=== PATIENT | female | born 1980 | race Caucasian/White ===

== ENCOUNTER 2020-12-05 00:40 | Outpatient (CLI) | payer OTHER, SELFPAY ==
[2020-12-05 18:46] LABS: SARS-CoV-2 RNA PCR Negative
== END 2020-12-05 00:41 | disposition home or self-care (01) ==
LOC: ANHCOVIDDT 00:40
PROVIDERS: Family Provider Internal Medicine; PCP Physician Assistant; Visit Provider Student in an Organized Health Care Education/Training Program
DX: Z01.812 Encounter for preprocedural laboratory examination (principal); Z20.822 Contact with and (suspected) exposure to COVID-19
CPT/HCPCS: C9803; U0003; U0005

== ENCOUNTER 2020-12-08 14:59 | Outpatient (CLI) | payer OTHER, SELFPAY ==
--- NOTE | 2020-12-08 15:29 | ECG_ITS ---
Measurements Intervals [place] Rate: 109 P: 65 PA: 144 QRS: 9 QRSD: 77 T: 30 QT: 318 QTc: 430 Interpretive Statements SINUS TACHYCARDIA POSSIBLE LEFT ATRIAL ENLARGEMENT BORDERLINE ECG ABNORMAL ECG Electronically Signed On 12-08-2020 16:48:25 HYDRAULIC OIL TOOL OPERATOR by Lorenzo Vasques D.O.
[2020-12-08 15:42] LABS: Hematocrit 41.8 % (37.0-47.0); Hemoglobin 14.8 g/dL (12.0-15.0); Mean Corpuscular HGB Conc 35.4 g/dl (32-36); Mean Corpuscular Hemoglobin 29.4 pg (26-34); Mean Corpuscular Volume 82.9 fl (80-100); Mean Platelet Volume 10.8 fl (7.4-10.4); Platelet Count Result 250 k/mm3 (150-375); Red Blood Count 5.04 M/mm3 (4.2-5.4); Red Cell Distribution Width 12.1 % (11.5-14.5); White Blood Count 9.5 K/mm3 (4.5-10.0)
[2020-12-08 15:46] LABS: Anion Gap 7 mmol/L (8-16); Blood Urea Nitrogen 8 mg/dL (7-17); Calcium 9.1 mg/dL (8.4-10.2); Carbon Dioxide 26 mmol/L (22-30); Chloride 105 mmol/L (98-107); Estimated Glomerular Filt Rate > 60; Glucose 338 mg/dL (65-105); Sodium 138 mmol/L (137-145)
== END 2020-12-08 15:00 | disposition home or self-care (01) ==
LOC: ANHLAB 15:01
PROVIDERS: Student in an Organized Health Care Education/Training Program; PCP Physician Assistant; Visit Provider Anesthesiology
DX: D25.9 Leiomyoma of uterus, unspecified (principal); Z01.818 Encounter for other preprocedural examination; R94.31 Abnormal electrocardiogram [ECG] [EKG]
CPT/HCPCS: 36415; 80048; 85027; 86850; 86900; 86901; 93005

== ENCOUNTER 2020-12-09 00:39 | Day surgery (SDC) | payer OTHER, SELFPAY ==
[2020-12-04 14:15] VITALS: BMI 35.2
[2020-12-09] VITALS (15 sets, daily range): BP systolic 121–152; BP diastolic 65–101; PULSE 88–122; RESP 12–20; TEMP 36.6–37.5; O2SAT 96–100
--- NOTE | 2020-12-09 07:55 | PM.IMHP ---
H&P: HPI History of Present Illness Date/Time: 12/09/20 07:55 Chief Complaint: AUB pelvic pain uterine fibroids Narrative: Patsy Milan is a 40 year old female who presents for robotic TLH/BS for AUB in the setting of uterine fibroids. Pt initially presented to the office complaining of abnormal uterine bleeding. She was having prolonged heavy periods and intermenstrual spotting. She reported associated pelvic pain. Pt states that previous providers would just give her OCPs which would not control the bleeding. Pt also had a D&C as well as endometrial ablation without improvement of her symptoms. Review of Systems Cardiovascular: Cardiovascular: Denies chest pain, Denies leg edema, Denies palpitations, Denies dyspnea and Denies dyspnea on exertion Respiratory: Respiratory: Denies cough, Denies dyspnea and Denies dyspnea on exertion Gastrointestinal: Gastrointestinal: Denies abdominal pain, Denies constipation, Denies diarrhea, Denies nausea and Denies vomiting Genitourinary: Genitourinary: Denies hematuria, Denies urinary frequency, Denies dysuria, Denies pelvic pain, Denies urinary incontinence and Denies vaginal discharge Neurologic: Reports system reviewed and no additional complaints, except as documented Psychiatric: Psychiatric: Reports no additional psychiatric complaints Endocrine: Endocrine: Denies palpitations PMFSH Social History Social History Smoking end date: 11/06/99 Additional smoking assessment comments: smoked 4 years Living arrangements: with family Spiritual care concerns: No Meds Home Medications and Allergies Home Medications Medication Instructions Recorded Confirmed Type acyclovir 800 mg PO HS 12/04/20 12/04/20 History amlodipine 10 mg PO HS 12/04/20 12/04/20 History ascorbic acid (vitamin C) [Vitamin 500 mg PO HS 12/04/20 12/04/20 History C] meloxicam 7.7 mg PO HS 12/04/20 12/04/20 History multivitamin [TAB A DEEPTI] 1 tablet PO DAILY 12/04/20 12/04/20 History sitagliptin [Januvia] 100 mg PO HS 12/04/20 12/04/20 History Allergies Allergy/AdvReac Type Severity Reaction Status Date / Time iodine Allergy Intermediate Hives Verified 12/04/20 13:52 codeine Allergy Mild nausea & Unverified 12/04/20 13:51 vomiting Exam Const: General: no acute distress Eyes: EOM: EOMs intact bilaterally Neck: Neck: supple Thyroid: thyroid normal Chest: Breast/axilla inspection: normal inspection of the breasts Breast/axilla palpation: normal palpation of the breasts, normal palpation of the axillae and no axillary lymphadenopathy Resp: Effort & Inspection: normal respiratory effort Auscultation: clear to auscultation bilaterally Cardio: Rate: regular rate Rhythm: regular rhythm GI: Inspection: non-distended GI Palp: Yes Soft to palpation, No Tenderness to palpation present (GI) and No Guarding due to palpation present (GI) Auscultation: normal bowel sounds : General: No bladder normal to palpation External Female Exam: normal external appearance Speculum Exam - Vagina: normal vaginal discharge and No vaginal bleeding Speculum Exam - Cervix: nontender Bimanual exam- vagina & uterus: No bladder normal to palpation and No Cervical tenderness present OB/external & speculum: No vaginal bleeding Skin: General skin exam: normal color and no rashes or lesions noted Neuro: Cognition (Neuro): normal cognition Speech: normal speech Extrem: General: normal to inspection and no edema Psych: Mental Status: mental status grossly normal Affect: normal affect Assessment and Plan Assessment and plan (1) Abnormal uterine bleeding (AUB): Code(s): N93.9 - Abnormal uterine and vaginal bleeding, unspecified Status: Acute Assessment and Plan: pt reports prolonged menses with intermenstrual spotting pt is s/p hysteroscopy D&C as well as endometrial ablation pt has also failed medical management via OCPs. pt desires definitive management via hysterectomy
--- NOTE | 2020-12-09 08:00 | WPDHPUPDATE1 ---
History and Physical Update Update Date/Time: 12/09/20 08:00 History and Physical has been reviewed, including an updated exam of the patient. There are NO changes in the patient's condition. Risks, benefits, and alternatives have been discussed and questions answered. Patient agrees to proceed with procedure.
[2020-12-09] MEDS: ACETAMINOPHEN 500 MG TABLET 1000 MG PO (10:32)
--- NOTE | 2020-12-09 11:09 | P.PNAN_ITS ---
Anes - Initial Pre Proc Eval Procedure: Operation Date: 12/09/20 12:00 Proposed Procedures p Robotic Assisted Total Vaginal Hysterectomy With Bilateral Salpingectomy - Beto Martinez MD Date/Time: 12/09/20 11:09 Surgeon: Beto Martinez MD Pre Op Diagnosis: Abn uterine bleeding, enlarged fibroid Patient Data Age: 40 Gender: F Height: 5 ft 4 in Weight: 94.2 kg Last Vital Signs Temp 99.5 F 12/09/20 10:09 Pulse 105 H 12/09/20 10:09 Resp 16 12/09/20 10:09 BP 146/94 H 12/09/20 10:09 Pulse Ox 100 12/09/20 10:09 Allergies Allergy/AdvReac Type Severity Reaction Status Date / Time iodine Allergy Intermediate Hives Verified 12/09/20 10:37 codeine Allergy Mild nausea & Unverified 12/09/20 10:37 vomiting Home Medications Medication Instructions Recorded Confirmed Type acyclovir 800 mg PO HS 12/04/20 12/09/20 History amlodipine 10 mg PO HS 12/04/20 12/09/20 History ascorbic acid (vitamin C) [Vitamin 500 mg PO HS 12/04/20 12/09/20 History C] meloxicam 7.7 mg PO HS 12/04/20 12/09/20 History multivitamin [TAB A DEEPTI] 1 tablet PO DAILY 12/04/20 12/09/20 History sitagliptin [Januvia] 100 mg PO HS 12/04/20 12/09/20 History Patient hx anesthesia problems: none Family hx anesthesia problems: none [facility] Past Medical History Medical History (Updated 12/09/20 @ 11:08 by Frank Saucedo MD) Diabetes Hypertension Obesity Social History Social History Smoking end date: 11/06/99 Additional smoking assessment comments: smoked 4 years Living arrangements: with family Spiritual care concerns: No Anes - Eval Final PreProcedure Day of Procedure 12/09/20 11:09 Patient weight: obese Heart: regular rate and rhythm Lungs: clear to auscultation Airway: Mallampati scale class III Neurological: alert and oriented Last oral intake: >/= 8 hours ASA classification: III Emergent: no Anesthetic plan: proceed Anesthesia type and monitoring: general ETT and standard monitoring Informed Consent: The patient's anesthetic plan and its attendant risks and benefits were discussed with the patient/family/POA. Questions were solicited and answers provided to the satisfaction of the patient/family/POA.
[2020-12-09 11:12] LABS: Glucose Point of Care 303 (65-105)
[2020-12-09] MEDS: LACTATED RINGERS 1,000 ML 30 ML IV CONT ×3 (11:14→16:01)
[2020-12-09] MEDS: KETOROLAC 15 MG/ML VIAL (*BKC) IV PUSH (11:15)
[2020-12-09 11:23] LABS: Glucose Point of Care 300 (65-105)
[2020-12-09] MEDS: INSULIN HUMAN REGULAR (*BKC) 100 UNITS/ML 10 UNITS SUB-Q (11:53)
[2020-12-09] MEDS: ceFAZolin 2 GM/D5W 50 ML 2 GM/50 ML BAG IVPB (12:00)
[2020-12-09] MEDS: LIDO 1%/EPINEPHRINE 1:100,000 50 ML VIAL 30 ML INFILTRATE (13:07)
[2020-12-09 13:14] LABS: Glucose Point of Care 261 (65-105)
--- NOTE | 2020-12-09 14:54 | PM.PROC ---
Procedure Note - Detailed Date of procedure: 12/09/20 Pre-op diagnosis: Abn uterine bleeding, enlarged fibroid Post-op diagnosis: same Procedure performed: Robotic assisted total laparoscopic hysterectomy bilateral salpingectomy 60 minutes of lysis of adhesions Description of procedure: PROCEDURE IN DETAIL: After the patient was appropriately consented she was taken to the operating room where she was transferred to the table in a dorsal supine position. General anesthesia was then induced with endotracheal intubation. The patient was transferred to a dorsal lithotomy position using adjustable yellow-fin stirrups. Her position was adjusted for appropriate support of her lower back and lower extremities. The patient was prepped and draped. A transurethral shore catheter was place. The cervix was sequentially dilated and a 6 cm uterine manipulator placed in typical fashion about a 3 cm LEILA ring. Gloves were changed. After confirmation of a functioning orogastric tube, lidocaine was injected at Zepeda's point in the LUQ and a 8 mm incision was made. A 5mm Optiview trocar was then inserted into the abdominal cavity under direct visualization and done so without complication. The abdomen was then insufflated with approximately 2-3L of CO2 establishing a pneumoperitoneum and the patient was placed in Trendelenburg position. Just above the umbilicus in the midline, a 8 mm incision made after injection of lidocaine and a 8 mm bladeless trocar advanced into the abdominal cavity under direct visualization without incident. We subsequently placed two robotic ports in a similar fashion, one in the left mid-quadrant and one in the right, 10cm lateral to the midline port. The robot was then docked. Pelvic survey was performed which showed extensive pelvic and anterior abdominal wall adhesions. Bowel omentum was noted to be adherent to the anterior abdominal wall. These adhesions were taken down with monopolar scissors. The previous areas of adhesions were noted to be hemostatic. The uterus was noted to be densely adherent to the anterior abdominal wall from three prior sections. The Left fallopian tube was identified out to the fimbrae. The fallopian tube was then coagulated and ligated along the inferior mesosalpinx toward the uterus. The utero-ovarian ligament was identified and ligated. The Left round ligament was divided and the posterior aspect of the broad ligament was then skeletonized down to the level of the internal cervical os, mobilizing the ureter laterally. The anterior broad ligament was then skeletonized to the level of the adhesions. The adhesions were meticulously teased away from the anterior uterus using sharp dissection with monopolar scissors. A window was created posterior to the adhesions. This allowed visualization of a clear space behind the adhesion. This dissection of adhesions took approximately 60 minutes. The The bladder flap was then created sharply. The ipsilateral uterine artery was skeletonized, bipolar cauterized and transected. A similar procedure was performed on the contralateral side, developing the pelvic spaces, coagulating and dividing the IP away from the ureter, completing the bladder flap, and skeletonizing, ligating, and dividing the uterine artery on this side. We ensured the vaginal pneumo-occluder balloon was insufflated and made a circumferential colpotomy using monopolar current. An attempt was made to remove the uterus through the vagina without success. The uterus was noted to be globular with an enlarged fundal portion compared to the cervix. Attention was then turned below. The cervical stump was grasped with two tenaculums. A jon retractor was placed in the posterior vagina to protect the vaginal tissue. A scapel was then used to bi-valve the uterus. The uterus was successfully bivalved under direct visualization. The uterus, cervix, and bilateral tubes were then delivered transvaginally. I then re-approximated the colp
[2020-12-09 15:10] LABS: Glucose Point of Care 392 (65-105)
[2020-12-09] MEDS: INSULIN HUMAN REGULAR (*BKC) 100 UNITS/ML 15 UNITS SUB-Q (15:20)
[2020-12-09] MEDS: fentaNYL CITRATE INJ (*CRX) 100 MCG/2 ML VIAL 25 MCG IV PUSH ×4 (16:06→16:12)
[2020-12-09] MEDS: LACTATED RINGERS 1,000 ML 125 ML IV CONT (17:20)
[2020-12-09] MEDS: HYDROcodone/acetaminophen (*CRX) 10-325 MG TABLET 1 TAB PO (17:24)
[2020-12-09 17:52] LABS: Glucose Point of Care 275 (65-105)
[2020-12-09] MEDS: INSULIN ASPART (*BKC) 100 UNITS/ML SUB-Q ×2 (18:18→20:00)
[2020-12-09] MEDS: ONDANSETRON INJ 4 MG/2 ML VIAL IV PUSH (18:21)
[2020-12-09 19:55] LABS: Glucose Point of Care 297 (65-105)
--- NOTE | 2020-12-09 21:04 | PM.IMCN ---
Assessment and Plan Assessment and plan (1) S/P hysterectomy: Code(s): Z90.710 - Acquired absence of both cervix and uterus Status: Acute Assessment and Plan: Continue allied health teacher recommendations. Primary team to manage the patient's postop pain. 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 We will administer 12 units of long-acting Lantus insulin. monitor blood sugars every 6 hours. Hypoglycemia protocol. Consider further bolus insulin therapy as needed. (3) Nausea and vomiting: Qualifiers: Vomiting Intractability: non-intractable Vomiting type: unspecified Qualified Code(s): R11.2 - Nausea with vomiting, unspecified Code(s): R11.2 - Nausea with vomiting, unspecified Status: Acute Assessment and Plan: Currently resolved. The patient is no longer nauseated. I have recommended to the nursing staff that we make the patient NPO for the rest of the night. (4) Allergic reaction: Qualifiers: Encounter type: initial encounter Qualified Code(s): T78.40XA - Allergy, unspecified, initial encounter Code(s): T78.40XA - Allergy, unspecified, initial encounter Status: Acute Assessment and Plan: Patient may have had an allergic reaction to the anesthesia as her facial rash was present immediately after surgery today. The patient has refused Benadryl that was offered to her because she felt it would put her to sleep. I have offered the patient loratadine which she is in agreement to take for her acute allergic reaction. We will also administer Pepcid IV. (5) Hypertension: Qualifiers: Hypertension type: unspecified Qualified Code(s): I10 - Essential (primary) hypertension Code(s): I10 - Essential (primary) hypertension Status: Chronic Assessment and Plan: currently stable. Monitor blood pressure. Continue amlodipine. Additional Plan Date of service was December 09, 2020 at approximately 8:00 p.m.. HPI Data of Consult Consult date: 12/10/20 Requesting Physician: Beto Martinez MD Primary Care Provider: Jacki Andrews, PA Family Provider: Asif Berkowitz, Consult Narrative Narrative: Thank you for consulting us to see this 40-year-old morbidly obese diabetic female who is status post robotic TLH/BS secondary to abnormal uterine bleeding with uterine fibroids. Tonight after surgery the patient was somnolent and complained of an itchy swollen red face. she complains that her abdominal pain has been poorly controlled tonight. The patient normally only takes Januvia for her diabetes. She has been hyperglycemic today and has received a total of 33 units of short-acting insulin. She does report that she drank apple juice this evening and did not realize that it was not sugar free. She has also had mild nausea and vomiting this evening. Currently she denies any fevers, chills, headache, chest pain, shortness of breath, Dysuria, hematuria, or rectal bleeding. We have been asked to assist with the patient's elevated blood sugars. Nursing staff reports to me that the patient's last blood sugar was 297 mg/dl for which she received 4 units of insulin at 8:00 p.m. Review of Systems Review of Systems: All systems reviewed & are unremarkable except as noted in HPI and below PMFSH Past Medical History Medical History (Updated 12/09/20 @ 21:13 by Kirby Hill MD) Diabetes Hypertension Obesity Surgical History Surgical History (Updated 12/09/20 @ 21:10 by Kirby Hill MD) Previous sect
[2020-12-09] MEDS: INSULIN GLARGINE (*BKC) 100 UNITS/ML 12 UNITS SUB-Q (21:35)
[2020-12-09] MEDS: PROMETHAZINE HCL 25 MG/ML AMPUL (21:39)
[2020-12-09] MEDS: FAMOTIDINE 20 MG/2 ML VIAL IV PUSH (21:53)
[2020-12-09] MEDS: ACYCLOVIR 400 MG TABLET 800 MG BY MOUTH (22:14)
[2020-12-09] MEDS: amLODIPine BESYLATE 5 MG TABLET 10 MG PO (22:14)
[2020-12-10 02:00] LABS: Glucose Point of Care 177 (65-105)
[2020-12-10] MEDS: IBUPROFEN 600 MG TABLET PO (04:58)
[2020-12-10 05:00] VITALS: BP 151/81; PULSE 92; RESP 17; TEMP 36.7
[2020-12-10 05:55] LABS: Anion Gap 5 mmol/L (8-16); Blood Urea Nitrogen 8 mg/dL (7-17); Calcium 9.1 mg/dL (8.4-10.2); Carbon Dioxide 26 mmol/L (22-30); Chloride 106 mmol/L (98-107); Estimated CRCL calculation 139 ml/min; Estimated Glomerular Filt Rate > 60; Glucose 164 mg/dL (65-105); Sodium 137 mmol/L (137-145)
[2020-12-10 06:12] LABS: Basophils Absolute Auto 0.1 K/mm3 (0.0-0.1); Basophils Percent Auto 0.3 % (0.2-1.2); Eosinophils Percent Auto 0.1 % (0-4.4); Hematocrit 41.3 % (37.0-47.0); Hemoglobin 14.2 g/dL (12.0-15.0); Immature Granulocyte Absolute 0.05 K/mm3 (0.00-0.031); Immature Granulocyte Percent A 0.3 % (0-0.5); Lymphocytes Percent Auto 15.2 % (18.3-44.2); Mean Corpuscular HGB Conc 34.4 g/dl (32-36); Mean Corpuscular Hemoglobin 29.7 pg (26-34); Mean Corpuscular Volume 86.4 fl (80-100); Monocytes Percent Auto 6.5 % (2.6-8.5); Neutrophils Absolute Auto 11.7 K/mm3 (1.3-6.7); Neutrophils Percent Auto 77.6 % (45.5-73.1); Platelet Count Result 219 k/mm3 (150-375); Red Blood Count 4.78 M/mm3 (4.2-5.4); Red Cell Distribution Width 12.4 % (11.5-14.5); White Blood Count 15.1 K/mm3 (4.5-10.0)
[2020-12-10 06:30] VITALS: PULSE 95; RESP 18; O2SAT 98
[2020-12-10 06:48] LABS: Glucose Point of Care 171 (65-105)
--- NOTE | 2020-12-10 07:07 | PM.GYNPNOP ---
PATTERNMAKER HELPER - A/P Postoperative Procedures: Procedures Operation Date: 12/09/20 12:00 Actual Procedures Side Surgeon p Robotic Assisted Total Vaginal Hysterectomy With Bilateral Salpingectomy Beto Martinez MD Postoperative day: 1 Postoperative status: doing well and marginal pain control Postoperative plan: routine post-op care, ambulate and advance diet Time Spent With Patient Time: Total time spent is greater than 50% in coordination of care (as documented) at patient's floor/unit and/or counseling patient: Time with patient: less than 15 minutes PATTERNMAKER HELPER- PN:Subj Post-Op Subjective Date/time seen: 12/10/20 07:07 Interval history: Patient doing well this AM. She complained of poor pain control overnight but states it is tolerable this AM. She had nausea overnight that is improved with Zofran and Phenergan. She is tolerating clears. She is ambulating to the chair. Her catheter was removed and she is voiding spontaneously. She reports minimal amount of vaginal bleeding. She denies any fevers or chills. She reports flatus. Pt diabetes was poorly controlled yesterday. Hospitalist consultation was placed for glycemic control. Pt received NPH and log insulin. Her BS have improved this AM. She has not yet had breakfast. Subjective: patient has no complaints, pain is well controlled and patient is tolerating oral intake Review of Systems Constitutional: Constitutional: Denies fever(s) Cardiovascular: Cardiovascular: Denies chest pain, Denies lightheadedness, Denies palpitations and Denies dyspnea Respiratory: Respiratory: Denies cough and Denies dyspnea Gastrointestinal: Gastrointestinal: Reports abdominal pain, Denies nausea and Denies vomiting Genitourinary: Genitourinary: Denies dysuria Endocrine: Endocrine: Denies palpitations Exam Const: General: comfortable and no acute distress Orientation/consciousness: oriented to person, oriented to place and oriented to time Resp: Effort & Inspection: normal respiratory effort Auscultation: clear to auscultation bilaterally Cardio: Rate: regular rate Rhythm: regular rhythm GI: Inspection: non-distended GI Palp: Yes Soft to palpation, Yes Tenderness to palpation present (GI) (mild tenderness to deep palpation) and No Guarding due to palpation present (GI) Auscultation: normal bowel sounds Other: Incisions C/D/I. no erythema or induration Urinary Catheter: Urinary Catheter: patent and draining and urine clear Neuro: General: oriented to person, oriented to place and oriented to time Extrem: General: normal to inspection and no edema Psych: Mental Status: mental status grossly normal Affect: normal affect PATTERNMAKER HELPER - PN: Obj Data Vital Signs Vital Signs: Vital Signs - 24 hr 12/09/20 10:09 12/09/20 15:04 12/09/20 15:15 Temperature 37.5 C 37.2 C Pulse Rate 105 H 91 99 Respiratory Rate 16 17 15 Blood Pressure 146/94 H 127/65 147/81 H Pulse Oximetry 100 99 99 12/09/20 15:30 12/09/20 15:45 12/09/20 16:00 Temperature Pulse Rate 88 88 95 Respiratory Rate 18 14 20 Blood Pressure 137/80 134/77 132/81 Pulse Oximetry 98 100 100 12/09/20 16:15 12/09/20 16:30 12/09/20 16:55 Temperature 36.6 C Pulse Rate 96 98 107 H Respiratory Rate 12 12 18 Blood Pressure 145/90 H 134/84 140/87 Pulse Oximetry 98 98 97 12/09/20 17:15 12/09/20 17:30 12/09/20 18:00 Temperature 36.6 C Pulse Rate 97 103 H 101 H Respiratory Rate 18 Blood Pressure 129/78 137/82 140/81 Pulse Oximetry 97 96 12/09/20 18:30 12/09/20 19:30 12/09/20 20:30 Temperature 36.9 C 37.0 C Pulse Rate 97 98 122 H Respiratory Rate 14 19 Blood Pressure 121/101 H 139/84 152/89 H Pulse Oximetry 12/10/20 05:00 Temperature 36.7 C Pulse Rate 92 Respiratory Rate 17 Blood Pressure 151/81 H Pulse Oximetry Intake/Output Intake/Output: Intake & Output 12/07/20 12/08/20 12/09/20 12/10/20 23:59 23:59 23:59 23:59 Intake Total 920 Balance 920 Meds/Results Medications: Active Medi
[2020-12-10 07:11] LABS: Glucose Point of Care 321 (65-105)
--- NOTE | 2020-12-10 07:11 | PM.DS ---
DS: Admitting Diagnosis Admitting Diagnosis Admitting Diagnosis: abnormal uterine bleeding uterine fibroids pelvic pain DS: Summary Hospital Course Hospital Course: Patsy Milan was admitted after robotic assisted total laparoscopic hysterectomy and bilateral salpingectomy for abnormal uterine bleeding, uterine fibroids, and pelvic pain. The above procedure was performed with no complications. Pts post op course was complicated by poor glycemic control. Pt required regular and long acting insulin to control her BS. Hospitalist consultation was appreciated. After control of BS, pt was able to be d/c home. Status at Discharge Overall status at discharge: patient is progressing back to baseline Time Spent with Patient Time attestation: Total time spent providing and/or coordinating discharge services: Time spent: Less than 30 minutes Exam Const: General: comfortable and no acute distress Limitations: no limitations Resp: Effort & Inspection: normal respiratory effort Auscultation: clear to auscultation bilaterally Cardio: Rate: regular rate Rhythm: regular rhythm GI: Inspection: non-distended GI Palp: Yes Soft to palpation, Yes Tenderness to palpation present (GI) (milder tenderness to deep palpation) and No Guarding due to palpation present (GI) Auscultation: normal bowel sounds Other: incisions C/D/I covered with dermabond Urinary Catheter: Urinary Catheter: urine clear Skin: General skin exam: normal color Extrem: General: normal to inspection Psych: Mental Status: mental status grossly normal Affect: normal affect DS: Data Data Completed and Pending Pending studies at discharge: Pending at discharge 12/09/20 14:48 Surgical [PTH] Routine Labs on day of discharge: Labs from last 24 hours 12/10/20 12/10/20 12/10/20 06:41 05:07 05:07 WBC 15.1 H RBC 4.78 Hgb 14.2 Hct 41.3 MCV 86.4 MCH 29.7 MCHC 34.4 RDW 12.4 Plt Count 219 MPV 11.0 H Immature Gran % (Auto) 0.3 Neut % (Auto) 77.6 H Lymph % (Auto) 15.2 L [place] % (Auto) 6.5 Eos % (Auto) 0.1 Baso % (Auto) 0.3 Lymph # (Auto) 2.30 [place] # (Auto) 1.0 H Eos # (Auto) 0.0 Baso # (Auto) 0.1 Abs Immat Gran (auto) 0.05 H Absolute Neuts (auto) 11.7 H Absolute Nucleated RBC 0.0 Nucleated RBC % 0.0 Sodium 137 Potassium 4.0 Chloride 106 Carbon Dioxide 26 Anion Gap 5 L BUN 8 Creatinine 0.50 L Estim Creat Clear Calc 139 Estimated GFR > 60 Glucose 164 H POC Capillary Glucose 171 H Calcium 9.1 12/10/20 12/09/20 12/09/20 01:57 19:42 17:47 WBC RBC Hgb Hct MCV MCH MCHC RDW Plt Count MPV Immature Gran % (Auto) Neut % (Auto) Lymph % (Auto) [place] % (Auto) Eos % (Auto) Baso % (Auto) Lymph # (Auto) [place] # (Auto) Eos # (Auto) Baso # (Auto) Abs Immat Gran (auto) Absolute Neuts (auto) Absolute Nucleated RBC Nucleated RBC % Sodium Potassium Chloride Carbon Dioxide Anion Gap BUN Creatinine Estim Creat Clear Calc Estimated GFR Glucose POC Capillary Glucose 177 H 297 H 275 H Calcium 12/09/20 12/09/20 12/09/20 15:07 12:54 11:21 WBC RBC Hgb Hct MCV MCH MCHC RDW Plt Count MPV Immature Gran % (Auto) Neut % (Auto) Lymph % (Auto) [place] % (Auto) Eos % (Auto) Baso % (Auto) Lymph # (Auto) [place] # (Auto) Eos # (Auto) Baso # (Auto) Abs Immat Gran (auto) Absolute Neuts (auto) Absolute Nucleated RBC Nucleated RBC % Sodium Potassium Chloride Carbon Dioxide Anion Gap BUN Creatinine Estim Creat Clear Calc Estimated GFR Glucose POC Capillary Glucose 392 H 261 H 300 H Calcium 12/09/20 11:10 WBC RBC Hgb Hct MCV MCH MCHC RDW Plt Count MPV Immature Gran % (Auto) Neut % (Auto) Lymph % (A
[2020-12-10 08:25] VITALS: BP 137/77; PULSE 95; RESP 18; TEMP 36.8; O2SAT 98
--- NOTE | 2020-12-10 08:41 | WPDANESPN ---
Anes - Prog Note Post-Op Date/Time: 12/10/20 08:41 Cardiovascular status: normal Respiratory status: normal Airway patency: baseline Mental status: baseline Post-Op hydration status: normal Vital Signs: Last Vital Signs Temp 36.7 C 12/10/20 05:00 Pulse 92 12/10/20 05:00 Resp 17 12/10/20 05:00 BP 151/81 H 12/10/20 05:00 Pulse Ox 96 12/09/20 17:30 Pain Score (VAS): 11/15 I/O: Intake & Output 12/09/20 12/10/20 12/10/20 23:59 07:59 15:59 Intake Total 870 Balance 870 Laboratory Tests 12/10/20 05:07 12/10/20 05:07 12/09/20 12/09/20 12/09/20 11:10 11:21 12:54 WBC RBC Hgb Hct MCV MCH MCHC RDW Plt Count MPV Immature Gran % (Auto) Neut % (Auto) Lymph % (Auto) [place] % (Auto) Eos % (Auto) Baso % (Auto) Lymph # (Auto) [place] # (Auto) Eos # (Auto) Baso # (Auto) Abs Immat Gran (auto) Absolute Neuts (auto) Absolute Nucleated RBC Nucleated RBC % Sodium Potassium Chloride Carbon Dioxide Anion Gap BUN Creatinine Estim Creat Clear Calc Estimated GFR Glucose POC Capillary Glucose 303 H 300 H 261 H Calcium 12/09/20 12/09/20 12/09/20 15:07 16:31 17:47 WBC RBC Hgb Hct MCV MCH MCHC RDW Plt Count MPV Immature Gran % (Auto) Neut % (Auto) Lymph % (Auto) [place] % (Auto) Eos % (Auto) Baso % (Auto) Lymph # (Auto) [place] # (Auto) Eos # (Auto) Baso # (Auto) Abs Immat Gran (auto) Absolute Neuts (auto) Absolute Nucleated RBC Nucleated RBC % Sodium Potassium Chloride Carbon Dioxide Anion Gap BUN Creatinine Estim Creat Clear Calc Estimated GFR Glucose POC Capillary Glucose 392 H 321 H 275 H Calcium 12/09/20 12/10/20 12/10/20 19:42 01:57 05:07 WBC 15.1 H RBC 4.78 Hgb 14.2 Hct 41.3 MCV 86.4 MCH 29.7 MCHC 34.4 RDW 12.4 Plt Count 219 MPV 11.0 H Immature Gran % (Auto) 0.3 Neut % (Auto) 77.6 H Lymph % (Auto) 15.2 L [place]haw % (Auto) 6.5 Eos % (Auto) 0.1 Baso % (Auto) 0.3 Lymph # (Auto) 2.30 [place]haw # (Auto) 1.0 H Eos # (Auto) 0.0 Baso # (Auto) 0.1 Abs Immat Gran (auto) 0.05 H Absolute Neuts (auto) 11.7 H Absolute Nucleated RBC 0.0 Nucleated RBC % 0.0 Sodium Potassium Chloride Carbon Dioxide Anion Gap BUN Creatinine Estim Creat Clear Calc Estimated GFR Glucose POC Capillary Glucose 297 H 177 H Calcium 12/10/20 12/10/20 05:07 06:41 WBC RBC Hgb Hct MCV MCH MCHC RDW Plt Count MPV Immature Gran % (Auto) Neut % (Auto) Lymph % (Auto) [place] % (Auto) Eos % (Auto) Baso % (Auto) Lymph # (Auto) [place] # (Auto) Eos # (Auto) Baso # (Auto) Abs Immat Gran (auto) Absolute Neuts (auto) Absolute Nucleated RBC Nucleated RBC % Sodium 137 Potassium 4.0 Chloride 106 Carbon Dioxide 26 Anion Gap 5 L BUN 8 Creatinine 0.50 L Estim Creat Clear Calc 139 Estimated GFR > 60 Glucose 164 H POC Capillary Glucose 171 H Calcium 9.1 Post-procedural complaints: none Patient Feedback: Patient satisfied with anesthetic care.
[2020-12-10 09:14] LABS: Hemoglobin A1C 9.3 % (<5.7)
[2020-12-10] MEDS: ACETAMINOPHEN 325 MG TABLET 650 MG PO (09:18)
[2020-12-10] MEDS: MULTIVITAMINS THERAPEUTIC TAB (*BKC) 1 TABLET PO (09:19)
[2020-12-10] MEDS: DOCUSATE SODIUM 100 MG CAPSULE PO (09:19)
--- NOTE | 2020-12-10 10:06 | PM.IMPN ---
Progress Note: A&P Assessment and Plan (1) S/P hysterectomy: Code(s): Z90.710 - Acquired absence of both cervix and uterus Status: Acute Assessment and Plan: Continue continuous miner operator helper recommendations. Primary team to manage the patient's postop pain. (2) Diabetes mellitus with hyperglycemia: Qualifiers: Diabetes mellitus type: type 2 Diabetes mellitus intermodal truck driver insulin use: without intermodal truck driver use Qualified Code(s): E11.65 - Type 2 diabetes mellitus with hyperglycemia Code(s): E11.65 - Type 2 diabetes mellitus with hyperglycemia Status: Acute Assessment and Plan: Acute hyperglycemia is likely reactive from the patient's surgery that she had today. She was given 12 units of long-acting Lantus insulin last night. Glucose this morning was 171. HgbA1c was 9.3%. She reports checking her sugars every morning and usually ranges 150 to 170. She does not check it more than that. She was diagnosed with diabetes a few months ago with a hemoglobin A1c of 10%. Metformin gave her multiple side effects was discontinued. Januvia was started and she has been taking it faithfully. She states she will not accept any changes to her diabetes regimen at this time. I discussed starting Glimepiride but she refused. She reports having an appointment with her primary care provider next month. I informed her if her glucose is not well controlled it can caused delayed surgical healing, promote infections/post-op infections. She understands the risks and does not want any changes to her DM regimin at this time. I educated her about watching her diet, exercising as tolerated with postop surgery, checking her glucose 4 times a day for better monitoring of her sugars. Hypoglycemic warnings given. Patient states she has a glucometer, lancets, test strips at home and does not need any more at this time. Patient understands and agrees with the plan all questions answered. She is stable for discharge from medical perspective at this time (3) Nausea and vomiting: Qualifiers: Vomiting type: unspecified Vomiting Intractability: non-intractable Qualified Code(s): R11.2 - Nausea with vomiting, unspecified Code(s): R11.2 - Nausea with vomiting, unspecified Status: Acute Assessment and Plan: Currently resolved. The patient is no longer nauseated. She denies any nausea and ate breakfast without any issues. (4) Allergic reaction: Qualifiers: Encounter type: initial encounter Qualified Code(s): T78.40XA - Allergy, unspecified, initial encounter Code(s): T78.40XA - Allergy, unspecified, initial encounter Status: Acute Assessment and Plan: Patient may have had an allergic reaction to the anesthesia as her facial rash was present immediately after surgery today. The patient has refused Benadryl that was offered to her because she felt it would put her to sleep. I have offered the patient loratadine which she is in agreement to take for her acute allergic reaction. We will also administer Pepcid IV. She denies any more itching or rash to her face. She can take [id number] Claritin as needed. (5) Hypertension: Qualifiers: Hypertension type: unspecified Qualified Code(s): I10 - Essential (primary) hypertension Code(s): I10 - Essential (primary) hypertension Status: Chronic Assessment and Plan: Currently stable, 137/77. Continue amlodipine. Time Spent With Patient Time with patient: 25 - 35 minutes Subjective Date/time seen: 12/10/20 10:06 Interval history: Date of service 12/10/2020: Patient states pain is better controlled this morning since her surgery yesterday. She still having pain, denies any nausea or vomiting with eating breakfast
== END 2020-12-10 11:25 | disposition home or self-care (01) ==
LOC: ANHSURGERY 09:50 → ANHOB2 17:01
PROVIDERS: Physician Assistant; Family Provider Internal Medicine; PCP Physician Assistant; Visit Provider Student in an Organized Health Care Education/Training Program
PROC: (CPT 58571; principal; 2020-12-09 12:00)
DX: N93.9 Abnormal uterine and vaginal bleeding, unspecified (principal); N80.0 Endometriosis of uterus; N70.11 Chronic salpingitis; R10.2 Pelvic and perineal pain; E11.65 Type 2 diabetes mellitus with hyperglycemia; R11.2 Nausea with vomiting, unspecified; T78.40XA Allergy, unspecified, initial encounter; R21 Rash and other nonspecific skin eruption; I10 Essential (primary) hypertension; E66.01 Morbid (severe) obesity due to excess calories; Z68.35 Body mass index [BMI] 35.0-35.9, adult; Z87.891 Personal history of nicotine dependence; Z79.84 Long term (current) use of oral hypoglycemic drugs
CPT/HCPCS: 58571; S2900; 36415; 80048; 82948; 83036; 85025; 88307; 99199; A9270; J0131; J0690; J1100; J1170; J1815; J1885; J2250; J2370; J2405; J2550; J2704; J2710; J3010; J7030; J7120

== ENCOUNTER 2024-11-25 08:40 | Outpatient (CLI) | payer OTHER, SELFPAY ==
[2024-11-25 09:14] LABS: Basophils Absolute Auto 0.1 K/mm3 (0.0-0.1); Basophils Percent Auto 0.5 % (0.2-1.2); Eosinophils Absolute Auto 0.1 K/mm3 (0-0.3); Eosinophils Percent Auto 0.8 % (0-4.4); Hemoglobin 15.7 g/dL (12.0-15.0); Immature Granulocyte Absolute 0.05 K/mm3 (0.00-0.031); Immature Granulocyte Percent A 0.4 % (0-0.5); Lymphocytes Absolute Auto 1.74 K/mm3 (0.9-3.2); Lymphocytes Percent Auto 15.3 % (18.3-44.2); Mean Corpuscular HGB Conc 34.9 g/dl (32-36); Mean Corpuscular Hemoglobin 30.3 pg (26-34); Mean Corpuscular Volume 86.7 fl (80-100); Mean Platelet Volume 10.5 fl (7.4-10.4); Monocytes Absolute Auto 0.5 K/mm3 (0.1-0.6); Platelet Count Result 234 k/mm3 (150-375); Red Blood Count 5.19 M/mm3 (4.2-5.4); Red Cell Distribution Width 12.5 % (11.5-14.5); White Blood Count 11.4 K/mm3 (4.5-10.0)
[2024-11-25 09:38] LABS: Alanine Aminotransferase 31 U/L (6-35); Albumin Level 4.3 g/dL (3.5-5.1); Alkaline Phosphatase 80 U/L (38-126); Anion Gap 9 mmol/L (4-12); Aspartate Amino Transferase 27 U/L (14-36); Bilirubin,Total 0.8 mg/dL (0.2-1.3); Blood Urea Nitrogen 12 mg/dL (7-17); Calcium 9.7 mg/dL (8.4-10.2); Carbon Dioxide 25 mmol/L (22-30); Chloride 101 mmol/L (98-107); Cholesterol 179 mg/dL (0-200); Estimated Glomerular Filt Rate > 60; Glucose 390 mg/dL (65-110); HDL Direct 37 mg/dL; Potassium 4.2 mmol/L (3.4-5.0); Sodium 135 mmol/L (137-145); Triglycerides 202 mg/dL (<150)
[2024-11-25 09:49] LABS: LDL Cholesterol Direct 115 mg/dL
[2024-11-25 10:17] LABS: Vitamin D 25 Hydroxy 14.1 ng/mL
[2024-11-25 10:59] LABS: Creatinine Urine 63.3 mg/dL
[2024-11-25 11:00] LABS: MALB Creatinine Ratio 20.2 mg/g (0-30); Microalbumin Urine Random 12.8 mg/L (0-16.7)
--- OUTSIDE RECORDS SUMMARY | 2024-11-28 12:00 | XMS_ITS | Clinical Summary ---
Author Organization [facility] Address [address] [place] [address] Care Team Providers Care Cream Separator Operator Name Role Phone Hermelindo Manning MD Unavailable [phone] Naty Guerrier PA-C Primary Care Provider [phone] Source Comments [facility],non-owned Affiliates and Associated Physician Practices is amultiple site organization consisting of ambulatory clinics and hospital sitesin [place], [place], [place] and [place]. This disclosure is being madepursuant to the Care Everywhere program and may not contain all information available regarding this patient. Last updated 18.[facility] Allergies Active Allergy Reactions Criticality Noted Date Comments Codeine Itching Low 07/01/2014 Contrast-Iodinated Agents For Ct/Other Rash Medium 08/03/2019 Morphine Rash Medium 08/03/2019 Medications * Be aware that medications may not be up to date on this document. Alwaysverify current medications with the patient. Medication Sig Dispensed Refills Start Date End Date Status lisinopril (Prinivil; Zestril) 20 MG tablet Take 1 (one) tablet by mouth once daily 90 tablet 3 12/27/2023 Active amLODIPine (Norvasc) 10 MG tabletIndications:Melissa jeter hypertension Take 1 (one) tablet by mouth once daily 90 tablet 3 01/30/2024 Active metoprolol succinate XL 24hr (Toprol XL) 25 MG tabletIndications:Melissa jeter hypertension Take 1 (one) tablet by mouth once daily 90 tablet 3 01/30/2024 Active semaglutide (Rybelsus) 7 MG tabletIndications:Typ e 2 diabetes mellitus without complication, without long-term current use of insulin (HCC) Take 1 (one) tablet by mouth once daily Take with a sip of water (< 4 oz) at least 30 minutes before any food, drink, or other meds. 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 The episodic nature of her recent episodes of hypertension associated with chest discomfort and heart racing is suggestive of pheochromocytoma. While she could very well have just primary hypertension, she is on the younger side to develop primary hypertension. I suspect she may have secondary hypertension. Her recently obtained -Check TTE to rule out endorgan damage -Check urine and plasma metanephrines to rule out pheochromocytoma -Renal Doppler, retroperitoneal ultrasound, BMP to rule out renovascular causes and aldosteronism -She has had hysterectomy hence unclear whether menopausal or not; but not taking oral contraceptives -Does not appear cushingoid Encounter to establish care 12/22/2022 Assessment & Plan (12/22/2022 11:03 PM MALT LIQUORS SALES SUPERVISOR): Check TSH, lipid profile Encounters Date Type Department Care Team Description 10/01/2024 Refill [facility] [address] [place] [address], [facility] [place] [address] Naty Guerrier PA-C Refill Request 09/16/2024 Refill [facility] [address] [place] [address], [place] [address] Naty Guerrier PA-C Refill Request 09/03/[address] [address] Merissa Kaufman, RT(R) Abnormal Imaging (Talked with patient today about rescheduling her Mammogram and Ultrasound appointment that she missed on 08/29/24. Patient states she will call us back with her availability when she has time. ) from Last 3 Months Immunizations Name Administration Dates Next Due TDAP, HISTORIC VACCINE 10/23/2017 Family History Medical History Relation Name Comments None Known Daughter Aneurysm, Brain Father Anxiety Disorder Father Bipolar Disorder Father Hypertension Father Diabetes - Type 2 Maternal Grandfather Renal Disease Maternal Grandfather Atrial Fibrillation Maternal Grandmother CVA Maternal Grandmother Cancer - Breast Maternal Grandmother recu rrent - 2007, 2014, 2022 Diabetes - Type 2 Mother Parkinson's Disease Paternal Grandfather Cancer - Lung Paternal Grandmother smoker None Known Sister None Known Son 1 None Known Son 2 Relation Name Status Comments Daughter Alive Father Alive Maternal Grandfather Maternal Grandmother Mother Alive Paternal Grandfather Alive Paternal Grandmother Sister Alive Son 1 Alive Son 2 Alive Social History Tobacco Use Types Packs/Day Years Used Date Smoking Tobacco: Never Smokeless Tobacco: Former Quit: 2000 Tobacco Cessation:Counseling Given: Not Answered Alcohol Use Standard Drinks/Week Comments Never 0 (1 standard drink = 0.6 oz pur e alcohol) AUDIT-C Answer Date Recorded Q1: How often do you have a drink containing alc ohol? Monthly or less 10/04/2022 Q2: How many drinks containi ng alcohol do you have on a typical day when you are drinking? 1 or 2 10/04/2022 Q3: How often do you have si x or more drinks on one occasion? Less than monthly 10/04/2022 PHQ-2 Answer Date Recorded Patient Health Questionnaire-2 Score 1 06/13/2024 Sex and Gender Information Value Date Recorded Sex Assigned at Not on file Gender Identity Not on file Sexual Orientation Not on file Last Filed Vital Signs Vital Sign Reading Time Taken Comments Blood Pressure 122/81 06/13/2024 3:11 PM CDT Pulse 96 06/13/2024 3:11 PM CDT Temperature 36.3 ??C (97.4 ??F) 06/13/2024 1:30 PM CD T Respiratory Rate 16 10/04/2022 7:58 PM MALT [employer]QU[employer] SALES SUPERVISOR Oxygen Saturation 100% 06/13/2024 1:30 PM CDT Inhaled Oxygen Concentration - - Weight 92.1 kg (203 lb 0.7 oz) 07/12/2024 10:29 AM CDT Height 162.6 cm (5' 4.02 ) 07/12/2024 10:29 AM C DT Body Mass Index 34.83 07/12/2024 10:29 AM CDT Plan of Treatment Health Maintenance Due Date Last Done Comments PAP SMEAR 1980 HEPATITIS C SCREENING 07/07/1998 HEPATITIS B VACCINE (1 of 3 - 19+ 3-dose series) 1999 PNEUMOCOCCAL VACCINE (1 of 2 - PCV) 1999 DIABETES-STATIN 2020 DIABETES-SERUM CREATININE 10/04/2023 10/04/2022 DIABETES RETINOPATHY SCREENING 12/27/2023 DIABETES-FOOT EXAM WITH MONOFILAMENT 12/27/2023 DIABETES-HGB A1C 12/27/2023 COVID-19 VACCINE ( - 2023-2 5 season) 2024 INFLUENZA VACCINE (#1) 2024 DEPRESSION SCREENING 11/06/2024 12/27/2023 DIABETES - URINE PROTEIN SCREENING 11/06/2024 MAMMOGRAM 07/12/2026 07/12/2024 DTAP/TDAP/TD VACCINES (2 - T d or Tdap) 10/23/2027 10/23/2017 ZOSTER VACCINE (1 of 2) 2030 HIB VACCINE Aged Out No longer eligi ble based on patient's age to complete this topic HIV SCREENING Discontinued HPV VACCINE Aged Out No longer eligi ble based on patient's age to complete this topic MENINGOCOCCAL (Group B) VACCINE Aged Out No longer eligible based on patient's age to complete this topic MENINGOCOCCAL VACCINE Aged Out No sayra mone eligible based on patient's age to complete this topic Procedures Procedure Name Priority Date/Time Associated Diagnosis Comments MAMMO BILAT SCREENING W MYRTLE Routine 07/12/2024 10:54 AM CDT Breast cancer screening by mammogram COMPREHENSIVE METABOLIC PANEL STAT 10/04/2022 2:43 PM MALT [employer]QU[employer] SALES SUPERVISOR from Last 3 Months or Most Recently Relevant to Health Maintenance Results * MAMMO BILAT SCREENING W MYRTLE (07/12/2024 10:54 AM CDT) Anatomical Region Laterality Modality Breast Bilateral Mammography 07/12/2024 11:0 7 AM CDT Impressions 07/12/2024 12:54 PM CDT : 1. Possible asymmetry in the medial mid depth left breast on the cranial caudal view. 2. Asymmetry in the superior posterior left breast on the MLO view. 3. Negative right mammogram. RECOMMENDATION: ??Diagnostic left mammogram. ??If indicated at that time, left breast ultrasound will be performed. ??Patient will be contacted and scheduled to return for the additional imaging. OVERALL ASSESSMENT: BI-RADS CATEGORY 0: INCOMPLETE: NEED ADDITIONAL IMAGING EVALUATION. Report dictated by John Hayes M.D. (residential support worker) 07/12/2024 11:07 AM I, Brianna Stanley MD have personally reviewed and interpreted this examination/study. > Interpreting Provider: Brianna Stanley MD on 07/12/2024 12:54 PM Narrative 07/12/2024 12:54 PM CDT EXAMINATIONS: ??BILATERAL DIGITAL SCREENING MAMMOGRAM AND BILATERAL BREAST TOMOSYNTHESIS LOCATION: [facility] EXAM DATE: ??07/12/2024 HISTORY: ??Baseline screening mammogram. Family history of breast cancer in her maternal grandmother at age 70. RISK ASSESSMENT CALCULATION: Patient completed a breast cancer risk assessment during her appointment 07/12/2024. ??Based upon the information she provided and her mammographic breast density, her lifetime risk of developing breast cancer is 13% (Average Risk <15%; Intermediate / Moderate Risk 15-19; High Risk > 20%). Risk assessment based upon the BRCAPRO model. COMPARISON: ??None. This is a baseline exam. TECHNIQUE: Tomosynthesis (3D) and reconstructed synthetic 2-D images acquired and reviewed in the bilateral craniocaudal and mediolateral oblique projections. ??A total of 4 images obtained. ??Transpara AI was utilized in the interpretation. ?? BREAST PARENCHYMAL COMPOSITION: Category B: There are scattered areas of fibroglandular density. FINDINGS: Right breast: ??No suspicious findings or evidence of malignancy. Left breast: ??Possible asymmetry in the medial mid depth breast, 4 cm from the nipple on the craniocaudal view. Asymmetry in the superior posterior breast on the MLO view, 15 cm from the nipple, which may represent a lymph node. Naty Guerrier PA-C MAMMO ORDERABLES * (ABNORMAL) COMPREHENSIVE METABOLIC PANEL (10/04/2022 2:43 PM [employer]QU[employer] SALES SUPERVISOR) BUN 12 7 - 26 mg/dL 10/04/2022 3:25 PM [facility] Creatinine 0.54(L) 0.56 - 0.96 mg/dL 10/04/2022 3:25 PM [facility] Sodium 137 136 - 145 mmol/L 10/04/2022 3:25 PM [facility] Potassium 4.1 3.5 - 4.5 mmol/L 10/04/2022 3:25 PM [facility] Chloride 104 98 - 107 mmol/L 10/04/2022 3:25 PM [facility] CO2 19(L) 22 - 29 mmol/L 10/04/2022 3:25 PM [facility] Glucose 277(H) 70 - 115 mg/dL 10/04/2022 3:25 PM [facility] Calcium 10.1 8.4 - 10.2 mg/dL 10/04/2022 3:25 PM [facility] Protein Total 7.5 6.0 - 8.3 g/dL 10/04/2022 3:25 PM [facility] Albumin 4.3 3.4 - 5.0 g/dL 10/04/2022 3:25 PM [facility] Bilirubin Total 1.0 0.2 - 1.2 mg/dL 10/04/2022 3:25 PM [facility] Alkaline Phosphatase 72 40 - 150 U/L 10/04/2022 3:25 PM [facility] ALT 38 5 - 55 U/L 10/04/2022 3:25 PM [facility] AST 24 5 - 34 U/L 10/04/2022 3:25 PM [facility] Anion Gap 18 8 - 18 10/04/2022 3:25 PM [facility] BUN/Creatinine Ratio 22 7 - 23 10/04/2022 3:25 PM [facility] Osmolality Calculated 294 270 - 300 mOsm/kg 10/04/2022 3:25 PM [facility] Albumin/Globulin Ratio 1.3 1.1 - 2.3 10/04/2022 3:25 PM MALT LIQUORS SALES SUPERVISOR [facility] eGFR by CKD-EPI >90 >=90 mL/min/1.7 3 m2 10/04/2022 3:25 PM MALT LIQUORS SALES SUPERVISOR [facility] Blood BLOOD SPECIMEN / Unknown Venipuncture / Unknown 10/04/2022 2:43 PM [employer] SALES SUPERVISOR 10/04/2022 2:52 PM [employer] SALES SUPERVISOR Charlene Waggoner SUBEDITOR-[facility] - CHEMISTR Y ORDERABLES [facility] [address] [place] [address], [facility] [phone] from Last 3 Months or Most Recently Relevant to Health Maintenance Care Teams Cream Separator Operator Relationship Specialty Start Date End Date Naty Guerrier PA-C [address] [facility] [address] [place] [address] PCP - General Physician Dcs Engineer Medical 12/27/23 Hermelindo Manning MD [address] [facility] [address] [place] [address] Internal Medicine 08/03/19
--- OUTSIDE RECORDS SUMMARY | 2024-11-28 12:00 | XMS_ITS | Patient Health Summary ---
Author Organization [facility] Address [address] 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 This disclosure is being madepursuant to the Care Everywhere program and may not contain all information available regarding this patient. Last updated 18.[facility] Allergies * Codeine(Itching) -Low Criticality * Contrast-Iodinated Agents For Ct/Other(Rash) -Medium Criticality * Morphine(Rash) -Medium Criticality Medications * Be aware that medications may not be up to date on this document. Alwaysverify current medications with the patient. * lisinopril (Prinivil; Zestril) 20 MG tablet(Started 12/27/2023) Take 1 (one) tablet by mouth once daily 3 refills by 12/26/2024 * amLODIPine (Norvasc) 10 MG tablet(Started 01/30/2024) Take 1 (one) tablet by mouth once daily 3 refills by 01/29/2025 * metoprolol succinate XL 24hr (Toprol XL) 25 MG tablet(Started 01/30/2024) Take 1 (one) tablet by mouth once daily 3 refills by 01/29/2025 * semaglutide (Rybelsus) 7 MG tablet(Started 09/17/2024) Take 1 (one) tablet by mouth once daily Take with a sip of water (< 4 oz) at least 30 minutes before any food, drink, or other meds. * hydroCHLOROthiazide (Microzide) 12.5 MG capsule(Started 10/01/2024) TAKE 1 CAPSULE BY MOUTH EVERY DAY Active Problems Problem Noted Date Diagnosed Date Type 2 diabetes mellitus wit hout complication, without long-term current use of insulin 12/27/2023 Primary hypertension 12/22/2022 Encounter to establish care 12/22/2022 Immunizations * TDAP, HISTORIC VACCINE(Given 10/23/2017) Social History Tobacco Use Types Packs/Day Years [...] T Respiratory Rate 16 10/04/2022 7:58 PM [employer] Oxygen Saturation 100% 06/13/2024 1:30 PM CDT Inhaled Oxygen Concentration - - Weight 92.1 kg (203 lb 0.7 oz) 07/12/2024 10:29 AM CDT Height 162.6 cm (5' 4.02 ) 07/12/2024 10:29 AM C DT Body Mass Index 34.83 07/12/2024 10:29 AM CDT Procedures * MAMMO BILAT SCREENING W MYRTLE(Performed 07/12/2024) Performed for Breast cancer screening by mammogram * PROC EKG IN CLINIC(Performed 12/22/2022) Performed for Encounter to establish care * CARDIAC EKG ORDER(Performed 10/05/2022) * URINALYSIS W/MICROSCOPIC NO CULTURE(Performed 10/04/2022) * SARS-COV-2 (COVID-19)+INFLU A+B PCR RAPID(Performed 10/04/2022) * HCG BETA BLOOD QUANTITATIVE(Performed 10/04/2022) * TSH REFLEX FREE T4(Performed 10/04/2022) * D-DIMER(Performed 10/04/2022) * TROPONIN I(Performed 10/04/2022) * COMPREHENSIVE METABOLIC PANEL(Performed 10/04/2022) * CBC W AUTO DIFFERENTIAL(Performed 10/04/2022) * XR CHEST 2VW(Performed 10/04/2022) Performed for Chest pain, unspecified type * EKG 12-LEAD(Performed 10/04/2022) Performed for Chest pain, unspecified type * VAS LEFT VENOUS DUPLEX LE(Performed 08/03/2019) Performed for Left leg swelling * XR TIBIA FIBULA LEFT 2VW(Performed 08/03/2019) Performed for Left leg swelling * XR SHOULDER RIGHT 2VW OR MORE(Performed 08/03/2019) Performed for Bilateral shoulder pain, unspecified chronicity * XR SHOULDER LEFT 2VW OR MORE(Performed 08/03/2019) Performed for Bilateral shoulder pain, unspecified chronicity * XR ANKLE LEFT 3VW OR MORE(Performed 08/03/2019) Performed for Left leg swelling * URINALYSIS AUTO - POINT OF CARE (AMB) STL(Performed 07/14/2016) Performed for Glucosuria * XR SHOULDER LEFT 2VW OR MORE(Performed 07/01/2014) Results * MAMMO BILAT SCREENING W MYRTLE [...] EVALUATION. Report dictated by John Hayes M.D. (secretary to the vice president) 07/12/2024 11:07 AM I, Brianna Stanley MD have personally reviewed and interpreted this examination/study. > Interpreting Provider: Brianna Stanley MD on 07/12/2024 12:54 PM Narrative 07/12/2024 12:54 PM CDT EXAMINATIONS: ??BILATERAL DIGITAL SCREENING MAMMOGRAM AND BILATERAL BREAST TOMOSYNTHESIS LOCATION: [facility] EXAM DATE: ??07/12/2024 HISTORY: ??Baseline screening mammogram. [...] node. Naty Guerrier PA-C MAMMO ORDERABLES * EKG - Clinic Performed (12/22/2022 3:11 PM [employer]) Nolberto Short MD ECG ORDERABLES * CARDIAC EKG ORDER (10/05/2022 10:52 AM [employer]) Narrative 10/05/2022 10:52 AM [employer] Ordered by an unspecified provider. Scanned Document CARDIAC SERVICES ORD ERABLES * (ABNORMAL) URINALYSIS W/MICROSCOPIC NO CULTURE (10/04/2022 2:55 PM [employer]) Color UA Yellow Straw, Yellow 10/04/2022 3:29 PM [facility] Clarity UA Clear Clear 10/04/2022 3:29 PM [facility] Specific Jack UA 1.020 1.005 - 1.030 10/04/2022 3:29 PM [facility] pH UA 5.5 5.0 - 8.0 pH 10/04/2022 3:29 PM [facility] Protein UA Negative Negative 10/04/2022 3:29 PM [facility] Glucose UA 3+(A) Negative 10/04/2022 3:29 PM [facility] Ketone UA 4+(A) Negative 10/04/2022 3:29 PM [facility] Bilirubin UA Negative Negative 10/04/2022 3:29 PM [facility] Comment:Urine Bilirubin resu lt confirmed by manual Ictotest. Blood UA Negative Negative 10/04/2022 3:29 PM [facility] Nitrite UA Negative Negative 10/04/2022 3:29 PM [facility] Leukocyte Esterase Negative Negative 10/04/2022 3:29 PM [facility] Urobilinogen UA Negative Negative mg/dL 10/04/2022 3:29 PM [facility] RBC UA 6-10(A) None Seen, 0-2, 3-5 /HPF 10/04/2022 3:29 PM [facility] WBC UA 0-5 None Seen, 0-5 /HPF 10/04/2022 3:29 PM [facility] Squamous Epithelial Cells UA 6-10(A) None Seen, 0-2, 3-5 /HPF 10/04/2022 3:29 PM [facility] Mucus UA 1+ /LPF 10/04/2022 3:29 PM [facility] Yeast Budding UA Few(A) None /HPF 10/04/20 22 3:29 PM [employer] [facility] Urine URINE SPECIMEN OBTAINED BY CLEAN CATCH PROCEDURE / Unknown Collection / Unknown 10/04/2022 2:55 PM [employer] 10/04/2022 3:13 PM [employer] Narrative [facility] - 10/04/2022 3:29 PM [employer] Charlene Rubinrichard JAVA WEB DEVELOPER[facility] - URINALYS IS ORDERABLES [facility] [address] [place] [address], [facility] [phone] * SARS-COV-2 (COVID-19)+INFLU A+B PCR RAPID (10/04/2022 2:44 PM [employer]) COVID-19 PCR Not detected Not detected 10/04/20 22 3:33 PM [employer] [facility] Influenza A Rapid ARRON Not Detected Not Detected 10/04/2022 3:33 PM [employer] [facility] Influenza B ARRON Rapid Not Detected Not Detected 10/04/2022 3:33 PM [employer] [facility] Microbiology SPECIMEN FROM NASOPHARYNGEAL STRUCTURE / Unknown Collection / Unknown 10/04/2022 2:44 PM [employer] 10/04/2022 2:47 PM [employer] Narrative [facility] - 10/04/2022 3:33 PM [employer] Influenza assay performed by Nucleic Acid Amplification. Results do not exclude the possibility of a mixed viral infection. NOTE: ??Detecting and identifying specific viral nucleic acids from individuals exhibiting signs and symptoms of respiratory infection aids in the diagnosis of respiratory infection, if used in conjunction with other clinical and laboratory findings. The results of this test should not be used as the sole basis for diagnosis, treatment, or patient management decisions. This nucleic acid amplification assay performance was validated by [facility]. This test has been authorized by the Food and Drug administration (FDA)under an Emergency??Use Authorization (EUA). This test has been validated in accordance with the FDA's guidance document Policy for Diagnostic Testing in Laboratories Certified to perform High Complexity Testing under CLIA prior to Emergency Use Authorization for Coronavirus Disease-2019 during the Public Health Emergency issued on January 04, 2020. FDA independent review of this validation is pending. This test is only authorized for the duration of time the declaration that circumstances exist justifying the authorization of emergency use of in vitro diagnostic tests for detection of SARS-CoV-2 virus and/or diagnosis of COVID-19 infection under section 564(b)(1) of the Act, 21 U.S.C 360bbb-3 (b)(1), unless the authorization is terminated or revoked sooner. Fact Sheets for this EUA assay are available upon request. Charlene Waggoner APRN-[facility] - MICROBIO LOGY ORDERABLES Performing Organization Address City/[facility]/ZIP Co de Phone Number [address] [address], [facility] [phone] * TSH REFLEX FREE T4 (10/04/2022 2:43 PM [employer]) TSH 1.327 0.350 - 4.940 uIU/mL 10/04/2022 3:43 PM [employer] [facility] Blood BLOOD SPECIMEN / Unknown Venipuncture / Unknown 10/04/2022 2:43 PM [employer] 10/04/2022 2:52 PM [employer] Charlene Waggoner APRNPrintio.ruWINCHER LAB - CHEMISTR Y ORDERABLES Performing Organization Address [facility]/ZIP Co de Phone Number [address] [address], [facility] [phone] * TROPONIN I (10/04/2022 2:43 PM [employer]) Troponin I <0.010 <0.032 ng/mL 10/04/2022 3:28 PM [employer] [facility] Blood BLOOD SPECIMEN / Unknown Venipuncture / Unknown 10/04/2022 2:43 PM [employer] 10/04/2022 2:51 PM [employer] Charlene Waggoner [facility]EN[facility] - CHEMISTR Y ORDERABLES Performing Organization Address City/[facility]/ZIP Co de Phone Number [address] [address], [facility] [phone] * (ABNORMAL) D-DIMER (10/04/2022 2:43 PM [employer]) [facility] D-Dimer Quantitative 0.53(H) <=0.50 mcg/mL FEU 10/04/2022 4:55 PM [employer] [facility] Comment: In the absence of clinical symptoms, a value less than or equal to 0.5 mcg/mL FEU significantly decreases the probability of PE/DVT (negative predictive value >95%). 1 mcg/mL FEU = 1 Fibrinogen Equivalent Unit (approximates 0.5 mcg/ml of D- Dimer). ?ISTH DIAGNOSTIC SCORING SYSTEM FOR DIC ?Score ?0 ? 1 ? 2 ?3 ?? Platelet Count(x10^3/uL) ?> 100 ?? < 100 ?? < 50 ?N/A PT Prolongation above ? upper limit of normal ?0-3 ? 3-6 ? > 6 ?N/A range (seconds) ? Fibrinogen (mg/dL) ?> 100 ?? < 100 ?N/A ?N/A D-Dimer (mcg/mL FEU) ? < 0.50 ?N/A ? 0.50-5.0 ??> 5 Calculate Cumulative Score: > or = 5 :compatible with overt DIC ? < 5 :suggestive for non-overt DIC N/A = Non applicable Reference: Br. J. Haematol. 145:24-33,2009. Blood BLOOD SPECIMEN / Unknown Venipuncture / Unknown 10/04/2022 2:43 PM [employer] 10/04/2022 2:52 PM [employer] Charlene Waggoner J[employer] WE[employer] DEVELOPER[employer] - COAGULAT ION ORDERABLES [facility] [address] [place] [address], [facility] [phone] * (ABNORMAL) CBC W AUTO DIFFERENTIAL (10/04/2022 2:43 PM [employer]) Pathologist [facility] WBC 12.7(H) 3.5 - 10.5 10? 3 /uL 10/04/2022 2:59 PM [facility] RBC 5.66(H) 3.80 - 5.20 10? 6 /uL 10/04/2022 2:59 PM [facility] Hemoglobin 16.9(H) 12.0 - 15.6 g/dL 10/04/2022 2:59 PM [facility] Hematocrit 47.2(H) 35.0 - 45.0 % 10/04/2022 2:59 PM [facility] MCV 83.4 80.7 - 98.3 fL 10/04/2022 2:59 PM [facility] MCH 29.9 26.7 - 34.0 pg 10/04/2022 2:59 PM [facility] MCHC 35.8 30.8 - 35.9 g/dL 10/04/2022 2:59 PM [facility] RDW-SD 37.5 36.0 - 50.0 fL 10/04/2022 2:59 PM [facility] RDW-CV 12.5 11.2 - 14.8 % 10/04/2022 2:59 PM [facility] Platelet Count 273 150 - 400 10? 3 /uL 10/04/2022 2:59 PM [facility] MPV 10.0 9.4 - 12.9 fL 10/04/2022 2:59 PM [facility] nRBC Absolute 0.00 0 10? 3 /uL 10/04/2022 2:59 PM [facility] nRBC Auto 0.0 0 /100 WBC 10/04/2022 2:59 PM [facility] Neutrophils % 75.2(H) 35.0 - 70.0 % 10/04/2022 2:59 PM [facility] Lymphocytes % 18.6(L) 20.0 - 43.0 % 10/04/2022 2:59 PM [facility] Monocytes % 5.0 5.0 - 13.0 % 10/04/2022 2:59 PM [facility] Eosinophils % 0.3 0.0 - 6.0 % 10/04/2022 2:59 PM [facility] Basophil % 0.6 0.0 - 2.0 % 10/04/2022 2:59 PM [facility] Neutrophils Absolute 9.56(H) 1.60 - 7.00 10? 3 /uL 10/04/2022 2:59 PM [facility] Lymphocyte Absolute 2.37 1.10 - 3.90 10? 3 /uL 10/04/2022 2:59 PM [facility] Monocytes Absolute 0.63 0.26 - 1.07 10? 3 /uL 10/04/2022 2:59 PM [facility] Eosinophils Absolute 0.04 0.00 - 0.47 10? 3 /uL 10/04/2022 2:59 PM [facility] Basophils Absolute 0.07 0.00 - 0.08 10? 3 /uL 10/04/2022 2:59 PM [facility] Immature Granulocytes % 0.3 0.0 - 1.0 % 10/04/2022 2:59 PM [facility] Immature Granulocytes Absolute 0.04 10/04/2022 2:59 PM [facility] Blood BLOOD SPECIMEN / Unknown Venipuncture / Unknown 10/04/2022 2:43 PM [employer] 10/04/2022 2:52 PM [employer] Charlene Waggoner J[employer] DEVELOPER[employer] - HEMATOLO GY ORDERABLES Performing Organization Address [facility]/State/ZIP Co de Phone Number [facility] [address] [place] [address], [facility] [phone] * (ABNORMAL) COMPREHENSIVE METABOLIC PANEL (10/04/2022 2:43 PM [employer]) BUN 12 7 - 26 mg/dL 10/04/2022 3:25 PM [facility] Creatinine 0.54(L) 0.56 - 0.96 mg/dL 10/04/2022 3:25 PM [facility] Sodium 137 136 - 145 mmol/L 10/04/2022 3:25 PM [facility] Potassium 4.1 3.5 - 4.5 mmol/L 10/04/2022 3:25 PM [facility] Chloride 104 98 - 107 mmol/L 10/04/2022 3:25 PM [facility] CO2 19(L) 22 - 29 mmol/L 10/04/2022 3:25 PM [facility] Glucose 277(H) 70 - 115 mg/dL 10/04/2022 3:25 PM [facility] Calcium 10.1 8.4 - 10.2 mg/dL 10/04/2022 3:25 PM [facility] Protein Total 7.5 6.0 - 8.3 g/dL 10/04/2022 3:25 PM [facility] Albumin 4.3 3.4 - 5.0 g/dL 10/04/2022 3:25 PM [facility] Bilirubin Total 1.0 0.2 - 1.2 mg/dL 10/04/2022 3:25 PM [facility] Alkaline Phosphatase 72 40 - 150 U/L 10/04/2022 3:25 PM [facility] ALT 38 5 - 55 U/L 10/04/2022 3:25 PM [facility] AST 24 5 - 34 U/L 10/04/2022 3:25 PM [facility] Anion Gap 18 8 - 18 10/04/2022 3:25 PM [facility] BUN/Creatinine Ratio 22 7 - 23 10/04/2022 3:25 PM [facility] Osmolality Calculated 294 270 - 300 mOsm/kg 10/04/2022 3:25 PM [facility] Albumin/Globulin Ratio 1.3 1.1 - 2.3 10/04/2022 3:25 PM [facility] eGFR by CKD-EPI >90 >=90 mL/min/1.7 3 m2 10/04/2022 3:25 PM [facility] Blood BLOOD SPECIMEN / Unknown Venipuncture / Unknown 10/04/2022 2:43 PM [employer] 10/04/2022 2:52 PM [employer] Charlene Waggoner J[employer] WE[employer] DEVELOPER[employer] - CHEMISTR Y ORDERABLES [facility] [address] [place] [address], [facility] [phone] * HCG BETA BLOOD QUANTITATIVE (10/04/2022 2:43 PM [employer]) Beta-hCG Total Quantitative <3 mIU/mL 10/04/2022 8:27 PM [employer] [facility] Comment: This assay is cleared for use in the early detection of only. It is not approved for any other uses such as tumor marker screening, tumor marker monitoring, etc. and should not be used for any other purposes. HCG Numeric Result Interpretation: ? Non- Females: ? < 5 mIU/mL ? Post-Menopausal Females: ??< 7 mIU/mL ? Blood BLOOD SPECIMEN / Unknown Venipuncture / Unknown 10/04/2022 2:43 PM [employer] 10/04/2022 2:52 PM [employer] Kelsea Dinh PA-C LAB - CHEMISTRY RYAN ALCANTAR [facility] [address] [place] [address], [facility] [phone] * XR CHEST 2VW (10/04/2022 2:23 PM [employer]) Anatomical Region Laterality Modality Chest Radiographic Morelia ging 10/04/2022 2:26 PM [employer] Impressions 10/04/2022 2:33 PM [employer] IMPRESSION: No acute pulmonary process is identified. Report dictated by Ricki Middleton MD (secretary to the vice president). IMarcella MD have personally reviewed and interpreted this examination/study. > Interpreting Provider: Marcella Christine MD on 10/04/2022 2:33 PM Narrative 10/04/2022 2:33 PM [employer] PROCEDURE: ??XR CHEST 2VW, DATE/TIME OF EXAM: ??10/04/2022 2:24 PM, LOCATION [facility] INDICATION: R07.9: Chest pain, unspecified type ADDITIONAL CLINICAL INFORMATION: Ordering Provider Reason For Exam: ??pneumonia COMPARISON: None. FINDINGS: There is no focal consolidation, pleural effusion, or pneumothorax. The cardiomediastinal silhouette is normal. There is mild dextrocurvature of thoracic spine. The visible bony thorax is otherwise unremarkable. Procedure Note Marcella Christine MD - 10/04/2022 PROCEDURE: XR CHEST 2VW, DATE/TIME OF EXAM: 10/04/2022 2:24 PM, LOCATION [facility] INDICATION: R07.9: Chest pain, unspecified type ADDITIONAL CLINICAL INFORMATION: Ordering Provider Reason For Exam: pneumonia COMPARISON: None. FINDINGS: There is no focal consolidation, pleural effusion, or pneumothorax. The cardiomediastinal silhouette is normal. There is mild dextrocurvature of thoracic spine. The visible bony thoraxis otherwise unremarkable. IMPRESSION: No acute pulmonary process is identified. Report dictated by Ricki Middleton MD (secretary to the vice president). I, Marcella Christine MD have personally reviewed and interpreted this examination/study. > Interpreting Provider: Marcella Christine MD on 10/04/2022 2:33 PM Charlene Waggoner JAVA WEB DEVELOPER[facility] ORDERABLES * EKG 12-LEAD (10/04/2022 1:32 PM [employer]) Ventricular Rate 125 BPM [facility] Atrial Rate 125 BPM [facility] P-R Interval 140 ms [facility] QRS Duration ms 74 ms [facility] Q-T Interval ms 308 ms [facility] QTC Calculation (Bezet) 444 ms [facility] Calculated P [place] 52 degrees [facility] Calculated R [place] -3 degrees [facility] Calculated T [place] 61 degrees [facility] Interpretation EKG SINUS TACHYCARDIA MINIMAL VOLTAGE CRITERIA FOR LVH, MAY BE NORMAL VARIANT ( R in aVL ) BORDERLINE ECG NO PREVIOUS ECGS AVAILABLE Confirmed by Sean Sandoval ([id number]) on 10/12/2022 10:11:07 PM [facility] 10/04/2022 1:32 PM [employer] 10/12/2022 10:11 PM [employer] Jose Alejandro Wayne MD ECG ORDERABLES [facility] MUSE * VAS LEFT VENOUS DUPLEX LE (08/03/2019 6:42 PM CDT) Anatomical Region Laterality Modality Lower Extremity, Upper Extremity Intravascular Ultrasound 08/03/2019 6:24 PM CDT Narrative Procedure Note Eusebio Le MD - 08/05/2019 Murali Aguirre MD VASCULAR LAB ORDERAB LES * XR TIBIA FIBULA LEFT 2VW (08/03/2019 4:09 PM CDT) Anatomical Region Laterality Modality Lower Extremity Radiographic Morelia ging 08/03/2019 4:40 PM CDT Impressions 08/04/2019 9:17 AM CDT IMPRESSION: No acute tibial or fibular fracture identified. Dictated by Ale Moran MD (secretary to the vice president). Dr. LASHANDA Tang have personally reviewed and interpreted this examination/study. This report was electronically signed by LASHANDA CHAIREZ ??on 08/04/2019 9:17 AM . Narrative 08/04/2019 9:17 AM CDT EXAMINATION: XR TIBIA FIBULA LEFT 2VW HISTORY: Eval for fracture vs dislocation COMPARISON: None FINDINGS: The tibia and fibula are intact and well aligned without acute fracture or dislocation. Bone density and texture are normal. No soft tissue swelling is present. Procedure Note Lashanda Chairez DO - 08/04/2019 EXAMINATION: XR TIBIA FIBULA LEFT 2VW HISTORY: Eval for fracture vs dislocation COMPARISON: None FINDINGS: The tibia and fibula are intact and well aligned without acute fractureor dislocation. Bone density and texture are normal. No soft tissueswelling is present. IMPRESSION: No acute tibial or fibular fracture identified. Dictated by Ale Moran MD (secretary to the vice president). Dr. LASHANDA Tang have personally reviewed and interpreted this examination/study. This report was electronically signed by LASHANDA CHAIREZ on 08/04/2019 9:17 AM . Murali Aguirre MD DIAGNOSTIC IMAGING O RDERABLES * XR SHOULDER RIGHT 2VW OR MORE (08/03/2019 4:09 PM CDT) Anatomical Region Laterality Modality Upper Extremity Radiographic Morelia ging 08/03/2019 4:33 PM CDT Impressions 08/04/2019 9:18 AM CDT IMPRESSION: No acute fracture or dislocation identified. Dictated by Ale Moran MD (secretary to the vice president). Dr. LASHANDA Tang have personally reviewed and interpreted this examination/study. This report was electronically signed by LASHANDA CHAIREZ ??on 08/04/2019 9:18 AM . Narrative 08/04/2019 9:18 AM CDT EXAMINATION: XR SHOULDER RIGHT 2VW OR MORE HISTORY: eval for fracture vs dislocation COMPARISON: None FINDINGS: The osseous structures are intact without acute fracture. The glenohumeral and acromioclavicular joints are in anatomic alignment. The glenohumeral and acromioclavicular joint spaces are maintained. Procedure Note Lashanda Chairez, - 08/04/2019 EXAMINATION: XR SHOULDER RIGHT 2VW OR MORE HISTORY: eval for fracture vs dislocation COMPARISON: None FINDINGS: The osseous structures are intact without acute fracture. Theglenohumeral and acromioclavicular joints are in anatomic alignment. The glenohumeral and acromioclavicular joint spaces are maintained. IMPRESSION: No acute fracture or dislocation identified. Dictated by Ale Moran MD (secretary to the vice president). Dr. LASHANDA Tang have personally reviewed and interpreted this examination/study. This report was electronically signed by LASHANDA CHAIREZ on 08/04/2019 9:18 AM . Murali Aguirre MD DIAGNOSTIC IMAGING O RDERABLES * XR SHOULDER LEFT 2VW OR MORE (08/03/2019 4:09 PM CDT) Only the most recent of2 resultswithin the time period is included. Anatomical Region Laterality Modality Upper Extremity Radiographic Morelai ging 08/03/2019 4:33 PM CDT Impressions 08/04/2019 9:18 AM CDT IMPRESSION: No acute fracture or dislocation identified. Dictated by Ale Moran MD (secretary to the vice president). Dr. LASHANDA Tang have personally reviewed and interpreted this examination/study. This report was electronically signed by LASHANDA CHAIREZ ??on 08/04/2019 9:18 AM . Narrative 08/04/2019 9:18 AM CDT EXAMINATION: XR SHOULDER LEFT 2VW OR MORE HISTORY: Eval for fracture vs dislocation COMPARISON: 07/01/2014 FINDINGS: The osseous structures are intact without acute fracture. The glenohumeral and acromioclavicular joints are in anatomic alignment. The glenohumeral and acromioclavicular joint spaces are maintained. Procedure Note Lashanda Chairez DO - 08/04/2019 EXAMINATION: XR SHOULDER LEFT 2VW OR MORE HISTORY: Eval for fracture vs dislocation COMPARISON: 07/01/2014 FINDINGS: The osseous structures are intact without acute fracture. Theglenohumeral and acromioclavicular joints are in anatomic alignment. The glenohumeral and acromioclavicular joint spaces are maintained. IMPRESSION: No acute fracture or dislocation identified. Dictated by Ale Moran MD (secretary to the vice president). Dr. LASHANDA Tang have personally reviewed and interpreted this examination/study. This report was electronically signed by LASHANDA CHAIREZ on 08/04/2019 9:18 AM . Murali Aguirre MD DIAGNOSTIC IMAGING O RDERABLES * XR ANKLE LEFT 3VW OR MORE (08/03/2019 4:08 PM CDT) Anatomical Region Laterality Modality Lower Extremity Radiographic Morelia ging 08/03/2019 4:40 PM CDT Impressions 08/04/2019 9:17 AM CDT IMPRESSION: No acute fracture or dislocation identified. Dictated by Ale Moran MD (secretary to the vice president). Dr. LASHANDA Tang have personally reviewed and interpreted this examination/study. This report was electronically signed by LASHANDA CHAIREZ ??on 08/04/2019 9:17 AM . Narrative 08/04/2019 9:17 AM CDT EXAMINATION: XR ANKLE LEFT 3VW OR MORE HISTORY: Rule out fracture vs dislocation COMPARISON: None FINDINGS: The osseous structures are intact and well aligned without acute fracture or dislocation. The ankle mortise is intact. Bone density and texture are normal. No soft tissue swelling is present. Calcaneal spurs are noted. Procedure Note Lashanda Chairez DO - 08/04/2019 EXAMINATION: XR ANKLE LEFT 3VW OR MORE HISTORY: Rule out fracture vs dislocation COMPARISON: None FINDINGS: The osseous structures are intact and well aligned without acutefracture or dislocation. The ankle mortise is intact. Bone density and textureare normal. No soft tissue swelling is present. Calcaneal spurs are noted. IMPRESSION: No acute fracture or dislocation identified. Dictated by Ale Moran MD (secretary to the vice president). I, Dr. LASHANDA CHAIREZ have personally reviewed and interpreted this examination/study. This report was electronically signed by LASHANDA CHAIREZ on 08/04/2019 9:17 AM . Murali Aguirre MD DIAGNOSTIC IMAGING O RDERABLES * URINALYSIS AUTO - POINT OF CARE (AMB) STL (07/14/2016) Clarity UA POCT clear Color UA POCT urine Leukocyte UA negative Negative Nitrite UA POCT negative Negative Urobilinogen UA 0.2 0.1 - 1.0 Protein UA POCT 1+ Negative pH UA 5.0 5.0 - 8.0 pH units Blood UA negative Negative Specific Jack UA POCT 1.010 1.002 - 1.030 Ketone UA 1+ Negative Bilirubin UA POCT negative Negative Glucose UA 4+ Negative Expiration Date [id number] Lot # [id number] QC Verified Yes Yes Urine specimen collection, clean catch (procedure) URINE / Unknown 07/14/2016 Rakel Miranda APRN-[facility] - POINT OF CARE ORDERABLES Care Teams Meat Cutter Apprentice Relationship Specialty Start Date End Date Naty Guerrier PA-C [address] [facility] [address] [place] [address] PCP - General Physician Marketing And Public Relations Manager Medical 12/27/23 Hermelindo Manning MD [address] [facility] [facility] [address] [place] [address] Internal Medicine 08/03/19
--- OUTSIDE RECORDS SUMMARY | 2024-11-28 12:00 | XMS_ITS | Referral Summary ---
Author Organization [facility] Address [address] [facility] [address] Care Team Providers Care Control Area Operator Name Role Phone Hermelindo Manning MD Unavailable [phone] Naty Guerrier PA-C Primary Care Provider [phone] Source Comments [facility],non-owned Affiliates and Associated Physician Practices is amultiple site organization consisting of ambulatory clinics and hospital sitesin [place], [place], [place] and [place]. This disclosure is being madepursuant to the Care Everywhere program and may not contain all information available regarding this patient. Last updated 18.[facility] Encounters Date Type Department Care Team Description 10/01/2024 Refill [facility] - Family Medicine [address] [place] [address], [place] [address] Naty Guerrier PA-C Refill Request 09/16/2024 Refill [facility] - Family Medicine [address] [place] [address], [facility] [place] [address] Naty Guerrier PA-C Refill Request 09/03/2024 Telephone [facility] [address] [place] [address] Merissa Kaufman, RT(R) Abnormal Imaging (Talked with patient today about rescheduling her Mammogram and Ultrasound appointment that she missed on 08/29/24. Patient states she will call us back with her availability when she has time. ) from Last 3 Months Allergies Active Allergy Reactions Criticality Noted Date [...] 12/22/2022 Assessment & Plan (12/22/2022 11:02 PM STAFF ELECTRONIC WARFARE OFFICER): Hypertension is a main issue for the [...] 12/22/2022 Assessment & Plan (12/22/2022 11:03 PM STAFF ELECTRONIC WARFARE OFFICER): Check TSH, lipid profile Immunizations Name Administration Dates Next Due TDAP, HISTORIC VACCINE 10/23/2017 Social History Tobacco Use Types Packs/Day Years [...] T Respiratory Rate 16 10/04/2022 7:58 PM STAFF ELECTRONIC WARFARE OFFICER Oxygen Saturation 100% 06/13/2024 1:30 PM CDT Inhaled Oxygen Concentration - - Weight 92.1 kg (203 lb 0.7 oz) 07/12/2024 10:29 AM CDT Height 162.6 cm (5' 4.02 ) 07/12/2024 10:29 AM C DT Body Mass Index 34.83 07/12/2024 10:29 AM CDT Plan of Treatment Not on file Procedures Procedure Name Priority Date/Time Associated Diagnosis Comments MAMMO BILAT SCREENING W MYRTLE Routine 07/12/2024 10:54 AM CDT Breast cancer screening by mammogram COMPREHENSIVE METABOLIC PANEL STAT 10/04/2022 2:43 PM STAFF ELECTRONIC WARFARE OFFICER from Last 3 Months or Most Recently [...] EVALUATION. Report dictated by John Hayes M.D. (radiology specialist) 07/12/2024 11:07 AM I, Brianna Stanley MD have personally reviewed and interpreted this examination/study. > Interpreting Provider: Brianna Stanley MD on 07/12/2024 12:54 PM Narrative 07/12/2024 12:54 PM CDT EXAMINATIONS: ??BILATERAL DIGITAL SCREENING MAMMOGRAM AND BILATERAL BREAST TOMOSYNTHESIS LOCATION: [facility] EXAM DATE: ??07/12/2024 HISTORY: ??Baseline screening [...] (ABNORMAL) COMPREHENSIVE METABOLIC PANEL (10/04/2022 2:43 PM STAFF ELECTRONIC WARFARE OFFICER) BUN 12 7 - 26 mg/dL 10/04/2022 3:25 PM [facility] Creatinine 0.54(L) 0.56 - 0.96 mg/dL 10/04/2022 3:25 PM [facility] Sodium 137 136 - 145 mmol/L 10/04/2022 3:25 PM [facility] Potassium 4.1 3.5 - 4.5 mmol/L 10/04/2022 3:25 PM [facility] Chloride 104 98 - 107 mmol/L 10/04/2022 3:25 PM [facility] CO2 19(L) 22 - 29 mmol/L 10/04/2022 3:25 PM [facility] Glucose 277(H) 70 - 115 mg/dL 10/04/2022 3:25 PM [facility] Calcium 10.1 8.4 - 10.2 mg/dL 10/04/2022 3:25 PM [facility] Protein Total 7.5 6.0 - 8.3 g/dL 10/04/2022 3:25 PM [facility] Albumin 4.3 3.4 - 5.0 g/dL 10/04/2022 3:25 PM [facility] Bilirubin Total 1.0 0.2 - 1.2 mg/dL 10/04/2022 3:25 PM [facility] Alkaline Phosphatase 72 40 - 150 U/L 10/04/2022 3:25 PM [facility] ALT 38 5 - 55 U/L 10/04/2022 3:25 PM [facility] AST 24 5 - 34 U/L 10/04/2022 3:25 PM [facility] Anion Gap 18 8 - 18 10/04/2022 3:25 PM STAFF ELECTRONIC WARFARE OFFICER [facility] BUN/Creatinine Ratio 22 7 - 23 10/04/2022 3:25 PM STAFF ELECTRONIC WARFARE OFFICER [facility] Osmolality Calculated 294 270 - 300 mOsm/kg 10/04/2022 3:25 PM [facility] Albumin/Globulin Ratio 1.3 1.1 - 2.3 10/04/2022 3:25 PM [facility] eGFR by CKD-EPI >90 >=90 mL/min/1.7 3 m2 10/04/2022 3:25 PM STAFF ELECTRONIC WARFARE OFFICER [facility] Blood BLOOD SPECIMEN / Unknown Venipuncture / Unknown 10/04/2022 2:43 PM STAFF ELECTRONIC WARFARE OFFICER 10/04/2022 2:52 PM STAFF ELECTRONIC WARFARE OFFICER Charlene Waggoner RN ADVICE-OFFSHORE DIVER [facility] - CHEMISTR Y ORDERABLES [facility] [address] [place] [address], [facility] [phone] from Last 3 Months or Most Recently Relevant to Health Maintenance Care Teams Control Area Operator Relationship Specialty Start Date End Date Naty Guerrier PA-C [address] [facility] [address] [place] [address] PCP - General Physician Media Relations Manager Medical 12/27/23 Hermelindo Manning MD [address] [place] [address] Internal Medicine 08/03/19
--- OUTSIDE RECORDS SUMMARY | 2024-11-28 12:00 | XMS_ITS | Encounter Summary ---
Author Organization [facility] Address [address] [place] [address] Care Team Providers Care Proteomics Scientist Name Role Phone Hermelindo Manning MD Unavailable Naty Guerrier PA-C Primary Care Provider [phone] Reason for Visit * Reason Comments Refill Request Encounter Details Date Type Department Care Team (Late st Contact Info) Description 03/27/2024 Refill [facility] - Family Medicine [address] [facility] [place] [address] Naty Guerrier PA-C [address] [facility] [address] [place] [address] Refill Request Social History Tobacco Use Types Packs/Day Years Used Date Smoking Tobacco: Never Smokeless Tobacco: Former Quit: 2000 Alcohol Use Standard Drinks/Week Comments Never 0 [...] Answer Date Recorded Patient Health Questionnaire-2 Score 2 12/27/2023 Sex and Gender Information Value Date Recorded Sex Assigned at Not on file Gender Identity Not on file Sexual Orientation Not on file documented as of this encounter Miscellaneous Notes * Telephone Encounter - Natty Tavarez - 03/27/2024 11:47 AM CDT Patsy Bjorn Requested Prescriptions Pending Prescriptions Disp Refills busPIRone (Buspar) 10 MG tablet [Pharmacy Med Name: BUSPIRONE HCL 10 MG TABLET] 90 tablet 0 Sig: TAKE 1 TABLET BY MOUTH THREE TIMES A DAY Allergies Allergen Reactions Iodine [Contrast-Iodinated Agents For Ct/Other] Rash Morphine Rash Codeine Itching Last Refill:02/28/2024 Qty Dispense:90 # of Refills:0 Last OV:12/27/2023 Next OV:none documented in this encounter Plan of Treatment Not on file documented as of this encounter Visit Diagnoses Diagnosis Generalized anxiety disorder documented in this encounter Care Teams Proteomics Scientist Relationship Specialty Start Date End Date Naty Guerrier PA-C [address] [address] PCP - General Physician Cafeteria Operator Medical 12/27/23 Hermelindo Manning MD [address] [address] Internal Medicine 08/03/19 documented as of this encounter
== END 2024-11-25 08:41 | disposition home or self-care (01) ==
PROVIDERS: PCP Internal Medicine; Visit Provider Clinical Nurse Specialist
DX: E11.65 Type 2 diabetes mellitus with hyperglycemia (principal); I10 Essential (primary) hypertension; E55.9 Vitamin D deficiency, unspecified
CPT/HCPCS: 36415; 80053; 80061; 82043; 82306; 83036; 84443; 85025

== ENCOUNTER 2025-07-12 10:07 | Emergency (ER) | payer SELFPAY ==
--- NOTE | ~2025-07-12 | XR_ITS ---
EXAMINATION: XR shoulder RT min 2V DATE: 07/12/2025 11:11 INDICATION: Right shoulder pain TECHNIQUE: AP internally and externally rotated, AP oblique externally rotated and transscapular Y views of the right shoulder were obtained. COMPARISON: None FINDINGS: Normal alignment. No fracture. Glenohumeral joint is normal. Mild acromioclavicular osteoarthritis. Soft tissues are unremarkable. Visualized portion of the lungs are clear. Mild thoracic spondylosis. Mild to moderate facet and uncovertebral osteoarthritis in the lower thoracic spine. IMPRESSION: Mild right acromioclavicular osteoarthritis. Reviewed, dictated and finalized at location A.
--- NOTE | ~2025-07-12 | CT_ITS ---
EXAMINATION: CT cervical spine wo con DATE: 07/12/2025 10:59 INDICATION: Right-sided neck pain TECHNIQUE: Computed tomography (CT) of the cervical spine was performed without intravenous contrast. Automated exposure control and iterative reconstruction technique were employed. The dose-length product was 526.30 mGy-cm. COMPARISON: None FINDINGS: Alignment is normal. Vertebral body heights are normal. No fracture. Mild disc height loss at C5-C6 and C6-C7. Cervical soft tissues are unremarkable. Visualized apices of lungs are clear. The following disc levels are specifically discussed: C2-C3: Disc is mildly bulging. There is minimal bilateral uncovertebral joint osteoarthritis. There is mild bilateral facet joint osteoarthritis. There is no neural foraminal stenosis. There is no central canal stenosis. C3-C4: Posterior disc osteophyte complex. There is mild bilateral uncovertebral joint osteoarthritis. There is mild bilateral facet joint osteoarthritis. There is mild left and minimal right neural foraminal stenosis. There is mild central canal stenosis. C4-C5: Right-sided predominant posterior disc osteophyte complex. There is mild bilateral uncovertebral joint osteoarthritis. There is mild bilateral facet joint osteoarthritis. There is mild right neural foraminal stenosis. There is mild to moderate central canal stenosis and moderate stenosis of the right lateral recess. There is ossification of the posterior longitudinal ligament extending caudally along the posterior aspect of C5 contributing to additional mild to moderate central canal stenosis extending to the more caudal C5-C6 disc space. C5-C6: Posterior disc osteophyte complex There is mild right and moderate left uncovertebral joint osteoarthritis. There is mild bilateral facet joint osteoarthritis. There is mild to moderate bilateral neural foraminal stenosis. There is mild to moderate central canal stenosis. C6-C7: Posterior disc osteophyte complex. There is mild bilateral uncovertebral joint osteoarthritis. There is mild right and moderate left facet joint osteoarthritis. There is mild bilateral neural foraminal stenosis. There is mild central canal stenosis. C7-T1: The disc does not extend beyond the endplate margin. There is mild bilateral uncovertebral joint osteoarthritis. There is moderate bilateral facet joint osteoarthritis. There is no neural foraminal stenosis. There is no central canal stenosis. IMPRESSION: 1. Mild cervical spondylosis with heterotopic ossification along the posterior longitudinal ligament which contributes to mild to moderate central canal stenosis at C4-C5 and C5-C6. Reviewed, dictated and finalized at location A. IMPRESSION: 1. Mild cervical spondylosis with heterotopic ossification along the posterior longitudinal ligament which contributes to mild to moderate central canal steno sis at C4-C5 and C5-C6.
--- OUTSIDE RECORDS SUMMARY | 2025-07-12 10:09 | XMS_ITS | Clinical Summary ---
Author Organization [facility] Address [address] [place] [address] Care Team Providers Care Organizational Consultant Name Role Phone No, Physician Primary Care Provider Allergies Active Allergy Reactions Criticality Noted Date Comments Codeine Itching Low 04/20/2025 Morphine Nausea & Vomiting Low 04/21/2025 Medications ALPRAZolam (XANAX) 0.25 mg tablet Take 1 tablet (0.25 mg total) by mouth nightly as needed for anxiety 5 Active amLODIPine (NORVASC) 10 mg tablet Take 1 tablet (10 mg total) by mouth daily 5 Active lisinopriL (PRINIVIL,ZESTR IL) 20 mg tablet Take 1 tablet (20 mg total) by mouth daily Active metoprolol XL (TOPROL-XL) 25 mg extended release tablet Take 1 tablet (25 mg total) by mouth daily 5 Active insulin glargine (BASAGLAR) 100 unit/mL (3 mL) pen for injection Inject 30 Units under the skin after 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 100 each 5 Active insulin lispro (ADMELOG) 100 unit/mL pen for injection Inject 7 Units under the skin 3 (three) times a day with meals (plus blood glucose mg/dL 150-199: 1 unit, 200-249: 2 units, 250-299: 3 units, 300-349: 4 units, 350 or greater: 5 units. Notify provider for blood glucose greater than 299 mg/dL. Max daily dose 15 ) Refer to After Visit Summary for Sliding Scale Insulin Instructions. 6.3 mL 1 5 Active pen needle, diabetic 32 gauge x /32 needle Use as directed 3 times a day. 100 each 5 Active glucagon 1 mg kit Inject 1 mg into the muscle once as directed by provider for low blood sugar. 1 kit 5 Active lancets misc Use as directed up to 4 times a day. 100 each 1 5 Active alcohol swabs (Alcohol Wipes) pads, medicated Use as directed. 100 each 5 Active blood-glucose sensor (Dexcom G7 Sensor) device Use as directed. Change sensor every 10 days. 3 each 5 Active Active Problems Problem Noted Date Diagnosed Date Cellulitis 04/27/2025 Nausea and vomiting, unspecified vomiting type 0 04/25/2025 Cellulitis, gluteal, left 04/20/2025 Encounters Date Type Department Care Team Description 04/25/2025 8:28 PM CDT - 04/27/2025 11:05 AM CDT Hospital Encounter [facility] Medical Care [address] [place] [address] Eric Vogt MD Petters, Ekanga Sunday, MD Kheirkhahan, Nazanin, MD Nausea and vomiting, unspecified vomiting type (Primary Dx); Cellulitis, gluteal, left Discharge Disposition: Left Against Medical Advice 04/20/2025 6:19 PM CDT - 04/22/2025 4:40 PM CDT Hospital Encounter [facility] ICU [address] [place] [address] Jose Mckeon MD Nikolic, Jelena, MD Diabetes mellitus, new onset (HCC) (Primary Dx); Cellulitis of buttock; Leukocytosis, unspecified type; Hyperglycemia Discharge Disposition: Discharge to home or self care from Last 3 Months Immunizations Immunization Administration Dates Next Due Tdap 04/20/2025 Social History Tobacco Use Types Packs/Day Years Used Date Smoking Tobacco: Never Smokeless Tobacco: Never Tobacco Cessation:Counseling Given: Not Answered [facility] Utilities Answer Date Recorded In the past 12 months has [employer], gas, oil, or water [employer] threatened to shut off services in your home? No 04/22/2025 Social Connection and Isolation Panel Answer Date Recorded In a typical week, how many times do you talk on the phone with family, friends, or neighbors? More than three times a week 04/22/2025 How often do you get togethe r with friends or relatives? More than three times a week 04/22/2025 How often do you attend chur ch or adventism services? Never 04/22/2025 Do you belong to any clubs o r organizations such as advent groups, unions, fraternal or athletic groups, or school groups? Yes 04/22/2025 How often do you attend meet ings of the clubs or organizations you belong to? More than 4 times per year 04/22/2025 Are you , , di vorced, , never , or living with a partner? 04/22/2025 AUDIT-C Answer Date Recorded Q1: How often do you have a drink containing alcohol? Never 04/21/2025 Q2: How many drinks containi ng alcohol do you have on a typical day when you are drinking? Patient does not drink Q3: How often do you have si x or more drinks on one occasion? Never 04/21/2025 Overall Financial Resource Strain (CARDIA) Answe r Date Recorded How hard is it for you to pa y for the very basics like food, housing, medical care, and heating? Not very hard 04/22/2025 Hunger Vital Sign Answer Date Recorded Within the past 12 months, y ou worried that your food would run out before you got the money to buy more. Never true 04/22/20 25 Within the past 12 months, t he food you bought just didn't last and you didn't have money to get more. Never true 04/22/2025 PRAPARE - Transportation Answer Date Re corded In the past 12 months, has l ack of transportation kept you from medical appointments or from getting medications? No 04/06 In the past 12 months, has l ack of transportation kept you from meetings, work, or from getting things needed for daily living? No 04/22/2025 Housing Stability Vital Sign Answer Quinn e Recorded In the last 12 months, was t here a time when you were not able to pay the mortgage or rent on time? No 04/22/2025 In the past 12 months, how m any times have you moved where you were living? 0 04/22/2025 At any time in the past 12 m [facility], were you homeless or living in a jail (including now)? No 04/22/2025 Personal Safety Answer Date Recorded Have you ever been in or are you currently in a harmful physical or emotional relationship or is someone making you feel afraid or unsafe? Denies 04/25/2025 Comments No Sex and Gender Information Value Date Recorded Sex Assigned at Not on file Legal Sex Female 6:15 PM CDT Gender Identity Not on file Sexual Orientation Not on file Obstetrics History Last Filed Vital Signs Vital Sign Reading Time Taken Comments Blood Pressure 172/98 04/27/2025 7:21 AM CDT Pulse 90 04/27/2025 7:21 AM CDT Temperature 36.7 C (98.1 F) 04/27/2025 7:21 AM CDT Respiratory Rate 18 04/27/2025 7:21 AM CDT Oxygen Saturation 98% 04/27/2025 7:21 AM CDT Inhaled Oxygen Concentration - - Weight 87.8 kg (193 lb 9 oz) 04/26/2025 12:38 AM CDT Height 162.6 cm (5' 4.02) 04/26/2025 12:38 AM C DT Body Mass Index 33.21 04/26/2025 12:38 AM CDT Plan of Treatment Health Maintenance Due Date Last Done Comments Albumin Creatinine Ratio, Urine 1980 Colon Cancer Screening-Colonoscopy 1980 Depression Screening 1980 Hepatitis C Screening 1980 Dilated Eye Exam 1980 Foot Exam 1980 Lipid Panel 1980 Varicella Vaccines (1 of 2 - 13+ 2-dose series) 1993 Hepatitis B Screening 1998 Regular Well Visit/Exam 18-64 1998 Pneumococcal vaccine <65 (1 of 2 - PCV) 1999 HPV Vaccines (1 - 3-dose SCD M series) 2007 Influenza Vaccine (#1) 2025 Breast Cancer Screening-Mammogram 07/12/2025 024, 07/12/2024 Hemoglobin A1C 10/20/2025 04/20/2025 eGFR 04/27/2026 04/27/2025, /11/2024, 04/25/2025, Additional history exists DTaP/Tdap/Td Vaccine (3 - Td or Tdap) 04/20/2035 04/20/2025, 10/23/2017 Procedures Procedure Name Priority Date/Time Associated Diagnosis Comments POCT GLUCOSE DEVICE Routine 04/27/2025 7 :20 AM CDT EGFR Routine 04/27/2025 7:08 AM CDT DIFFERENTIAL AUTO Routine 04/27/2025 7:0 8 AM CDT CBC WITH AUTO DIFFERENTIAL Routine 04/27/2025 7:08 AM CDT MAGNESIUM Routine 04/27/2025 7:08 AM CDT COMPREHENSIVE METABOLIC PANEL Routine 04/27/2025 7:08 AM CDT POCT GLUCOSE DEVICE Routine 04/27/2025 1 :45 AM CDT POCT GLUCOSE DEVICE Routine 04/26/2025 8 :06 PM CDT POCT GLUCOSE DEVICE Routine 04/26/2025 4 :56 PM CDT POCT GLUCOSE DEVICE Routine 04/26/2025 1 1:40 AM CDT POCT GLUCOSE DEVICE Routine 04/26/2025 8 :16 AM CDT EGFR Routine 04/26/2025 7:17 AM CDT DIFFERENTIAL AUTO Routine 04/26/2025 7:1 7 AM CDT CBC WITH AUTO DIFFERENTIAL Routine 04/26/2025 7:17 AM CDT MAGNESIUM Routine 04/26/2025 7:17 AM CDT COMPREHENSIVE METABOLIC PANEL Routine 04/26/2025 7:17 AM CDT OXYCODONE CONFIRMATION, URINE Routine 04/26/2025 1:58 AM CDT DRUGS OF ABUSE SCREEN, URINE WITH REFLEX CONFIRMATION Routine 04/26/2025 1:58 AM CDT URINALYSIS AND REFLEX TO MICROSCOPIC AND CULTURE Routine 04/26/2025 1:58 AM CDT POCT GLUCOSE DEVICE Routine 04/26/2025 1 2:[address] ABDOMEN PELVIS W CONTRAST ED Urgent/IP Urgent 04/25/2025 11:11 PM CDT ECG 12-LEAD STAT 04/25/2025 10:29 PM CDT LIPASE Add-On 04/25/2025 9:50 PM CDT SEPSIS LACTATE WITH REFLEX STAT 04/25/2025 9:50 PM CDT EGFR STAT 04/25/2025 7:43 PM CDT DIFFERENTIAL AUTO STAT 04/25/2025 7:4 3 PM CDT COMPREHENSIVE METABOLIC PANEL STAT 04/25/2025 7:43 PM CDT CBC WITH AUTO DIFFERENTIAL STAT 04/25/2025 7:43 PM CDT POCT GLUCOSE DEVICE Routine 04/22/2025 1 2:33 PM CDT EGFR Routine 04/22/2025 9:05 AM CDT BASIC METABOLIC PANEL Routine 04/22/2025 9:05 AM CDT VANCOMYCIN LEVEL TROUGH Timed 04/22/2025 9:05 AM CDT POCT GLUCOSE DEVICE Routine 04/22/2025 7 :54 AM CDT EGFR Routine 04/22/2025 5:19 AM CDT DIFFERENTIAL AUTO Routine 04/22/2025 5:1 9 AM CDT CBC WITH AUTO DIFFERENTIAL Routine 04/22/2025 5:19 AM CDT CREATININE Routine 04/22/2025 5:19 AM CDT POCT GLUCOSE DEVICE Routine 04/22/2025 3 :45 AM CDT POCT GLUCOSE DEVICE Routine 04/21/2025 9 :37 PM CDT POCT GLUCOSE DEVICE Routine 04/21/2025 5 :02 PM CDT POCT GLUCOSE DEVICE Routine 04/21/2025 1 2:03 PM CDT POCT GLUCOSE DEVICE Routine 04/21/2025 9 :50 AM CDT POCT GLUCOSE DEVICE Routine 04/21/2025 8 :49 AM CDT POCT GLUCOSE DEVICE Routine 04/21/2025 7 :53 AM CDT EGFR Routine 04/21/2025 5:06 AM CDT DIFFERENTIAL AUTO Routine 04/21/2025 5:0 6 AM CDT COMPREHENSIVE METABOLIC PANEL Routine 04/21/2025 5:06 AM CDT CBC WITH AUTO DIFFERENTIAL Routine 04/21/2025 5:06 AM CDT POCT GLUCOSE DEVICE Routine 04/20/2025 1 0:[address] ABDOMEN PELVIS W CONTRAST ED 04/20/2025 8:19 PM CDT URINALYSIS, MICROSCOPIC ONLY STAT 04/20/2025 7:34 PM CDT MAGNESIUM Routine 04/20/2025 7:34 PM CDT URINE CULTURE STAT 04/20/2025 7:34 PM CDT URINALYSIS AND REFLEX TO MICROSCOPIC AND CULTURE STAT 04/20/2025 7:34 PM CDT HEMOGLOBIN A1C Routine 04/20/2025 6:52 PM CDT EGFR STAT 04/20/2025 6:52 PM CDT DIFFERENTIAL AUTO STAT 04/20/2025 6:5 2 PM CDT SEPSIS LACTATE WITH REFLEX STAT 04/20/2025 6:52 PM CDT COMPREHENSIVE METABOLIC PANEL STAT 04/20/2025 6:52 PM CDT CBC WITH AUTO DIFFERENTIAL STAT 04/20/2025 6:52 PM CDT BLOOD CULTURE STAT 04/20/2025 6:52 PM CDT BLOOD CULTURE STAT 04/20/2025 6:52 PM CDT from Last 3 Months Results * POCT glucose (04/27/2025 7:20 AM CDT) Glucose, POC 198 70 - 199 mg/dL Blood 04/27/2025 7:20 AM CDT 04/27/2025 7:20 AM CDT us Leticia Castellanos MD LAB POCT ORDERABLES - DEV ICE Final Result [facility] [place]) 1 [facility] Department [place] [address] * eGFR (04/27/2025 7:08 AM CDT) eGFR >90 >=60 mL/min/1. 73 m2 Comment: Interpretive Data Reference Interval Normal >/= 90 mL/min/1.73m2 Mildly decreased* 60 - 89 mL/min/1.73m2 Mildly to moderately decreased 45 - 59 mL/min/1.73m2 Moderately to severely decreased 30 - 44 mL/min/1.73m2 Severely decreased 15 - 29 mL/min/1.73m2 Kidney Failure < 15 mL/min/1.73m2 *Relative to young adult level Estimated glomerular filtration rate is determined by the 2020 CKD-EPI equation recommended by the National Kidney Foundation (A Unifying Approach to GFR Estimation: Recommendations of the NKF-ASK Task Force on Reassessing the Inclusion of Race in Diagnosing Kidney Disease, JASN 2020). The CKD-EPI equation should not be used for patients with unstable renal function and has not been validated in children and those over 70. Current interpretive data was last reviewed 2021. Blood 04/27/2025 7:08 AM CDT 04/27/2025 7:27 AM CDT us Tiffany Peters MD LAB BLOOD ORDERABLES nal Result [facility] ([place]) 1 [facility] [place] [address] * Differential, auto (04/27/2025 7:08 AM CDT) Neutrophil abs 4.90 1.50 - 6.50 K/cumm Imm gran abs 0.06 0.00 - 0.10 K/cumm [facility] ([place]) Lymphocyte abs 1.89 0.80 - 3.30 K/cumm [facility]) Monocyte abs 0.66 0.20 - 0.80 K/cumm [facility] ([place]) Eosinophil abs 0.13 0.00 - 0.50 K/cumm [facility]) Basophil abs 0.07 0.00 - 0.10 K/cumm [facility] ([place]) Neutrophil pct 63.5 % [facility] ([place]) Comment: Interpretive Data Percent cell count reference ranges are not reported, since discordance with absolute values may lead to misinterpretation of CBC data. Current Interpretive Data was last revised on 2018. Imm gran pct 0.8 % [facility] ([place]) Comment: Interpretive Data Percent cell count reference ranges are not reported, since discordance with absolute values may lead to misinterpretation of CBC data. Current Interpretive Data was last revised on 2018. Lymphocyte pct 24.5 % [facility] ([place]) Comment: Interpretive Data Percent cell count reference ranges are not reported, since discordance with absolute values may lead to misinterpretation of CBC data. Current Interpretive Data was last revised on 2018. Monocyte pct 8.6 % [facility] ([place]) Comment: Interpretive Data Percent cell count reference ranges are not reported, since discordance with absolute values may lead to misinterpretation of CBC data. Current Interpretive Data was last revised on 2018. Eosinophil pct 1.7 % [facility]) Comment: Interpretive Data Percent cell count reference ranges are not reported, since discordance with absolute values may lead to misinterpretation of CBC data. Current Interpretive Data was last revised on 2018. Basophil pct 0.9 % [facility]) Comment: Interpretive Data Percent cell count reference ranges are not reported, since discordance with absolute values may lead to misinterpretation of CBC data. Current Interpretive Data was last revised on 2018. Blood 04/27/2025 7:08 AM CDT 04/27/2025 7:27 AM CDT us Tiffany Peters MD LAB BLOOD ORDERABLES Fi nal Result [facility] ([place]) 1 [facility] Department [place] [address] * (ABNORMAL) CBC with auto differential (04/27/2025 7:08 AM CDT) WBC 7.71 3.80 - 9.90 K/cumm Hgb 12.3 11.9 - 15.5 g/dL [facility] ([place]) Hct 35.4(L) 35.6 - 45.5 % [facility] ([place]) Plt 228 150 - 400 K/cumm [facility]) MPV 9.9 9.1 - 12.3 fL [facility]) RBC 4.09 3.90 - 5.20 M/cumm [facility]) MCV 86.6 81.3 - 96.4 fL [facility]) MCH 30.1 27.1 - 33.3 pg [facility]) MCHC 34.7 32.3 - 35.7 g/dL [facility]) RDW CV 12.4 11.1 - 14.9 % [facility]) RDW SD 38.8 35.7 - 48.1 fL [facility] NRBC abs 0.00 0.00 - 0.01 K/cumm [facility] Blood 04/27/2025 7:08 AM CDT 04/27/2025 7:27 AM CDT Tiffany Peters MD LAB BLOOD ORDERABLES Fi nal Result [facility] ([place]) 1 [facility] [address] [place] [address] * Magnesium (04/27/2025 7:08 AM CDT) Magnesium 1.8 1.4 - 2.5 mg/dL Blood 04/27/2025 7:08 AM CDT 04/27/2025 7:27 AM CDT Tiffany Peters MD LAB BLOOD ORDERABLES Fi nal Result [facility] ([place]) [address] [facility] [place] [address] * (ABNORMAL) Comprehensive metabolic panel (04/27/2025 7:08 AM CDT) Sodium 136 135 - 145 mmol/L Potassium, pl 3.3 3.3 - 4.9 mmol/L [facility]) Chloride 102 97 - 110 mmol/L [facility]) CO2 23 22 - 32 mmol/L [facility]) Anion gap 11 2 - 15 mmol/L [facility]) BUN 5(L) 6 - 25 mg/dL [facility]) Creatinine 0.42(L) 0.60 - 1.10 mg/dL [facility]) Glucose 211(H) 70 - 199 mg/dL [facility]) Comment: Interpretive Data Fasting glucose >/= 126 mg/dl is diagnostic for diabetes. Fasting is defined as no caloric intake for at least 8 hours. Fasting glucose between 100 mg/dl to 125 mg/dl is diagnostic of prediabetes. In a patient with classic symptoms of hyperglycemia or hyperglycemic crisis, a random glucose >/= 200 mg/dl is diagnostic for diabetes. In the absence of unequivocal hyperglycemia, results should be confirmed by repeat testing. The classification and Diagnosis of Diabetes Diabetes Care 2021; 46: S19-S40. Current interpretive data was last revised 2022. Calcium 8.6 8.5 - 10.3 mg/dL [facility]) Bilirubin, total 0.4 0.1 - 1.2 mg/dL [facility]) Protein, pl 5.9(L) 6.5 - 8.5 g/dL [facility]) Albumin 3.1(L) 3.5 - 5.0 g/dL [facility]) Alk phos 61 40 - 130 Units/L [facility] ALT 19 7 - 45 Units/L [facility] AST 15 10 - 45 Units/L [facility]) Blood 04/27/2025 7:08 AM CDT 04/27/2025 7:27 AM CDT us Tiffany Peters MD LAB BLOOD ORDERABLES Fi nal Result [facility] 1 [facility] Department [place] [address] * (ABNORMAL) POCT glucose (04/27/2025 1:45 AM CDT) Glucose, POC 224(H) 70 - 199 mg/dL Blood 04/27/2025 1:45 AM CDT 04/27/2025 1:45 AM CDT Leticia Castellanos MD LAB POCT ORDERABLES - DEV ICE Final Result [facility] ([place]) [address] [place] [address] * (ABNORMAL) POCT glucose (04/26/2025 8:06 PM CDT) Glucose, POC 208(H) 70 - 199 mg/dL Blood 04/26/2025 8:06 PM CDT 04/26/2025 8:06 PM CDT Leticia Castellanos MD LAB POCT ORDERABLES - DEV ICE Final Result Performing Organization Address [facility] Co de Phone Number [facility] ([place]) [address] [facility] [place] [address] * (ABNORMAL) POCT glucose (04/26/2025 4:56 PM CDT) Glucose, POC 250(H) 70 - 199 mg/dL Comment:Glu2: RN/ Notified Blood 04/26/2025 4:56 PM CDT 04/26/2025 4:56 PM CDT Leticia Castellanos MD LAB POCT ORDERABLES - DEV ICE Final Result [facility] ([place]) [address] [facility] [place] [address] * POCT glucose (04/26/2025 11:40 AM CDT) Glucose, POC 177 70 - 199 mg/dL Blood 04/26/2025 11:4 0 AM CDT 04/26/2025 11:40 AM CDT Leticia Castellanos MD LAB POCT ORDERABLES - DEV ICE Final Result [facility] ([place]) 1 [facility] [place] [address] * POCT glucose (04/26/2025 8:16 AM CDT) Glucose, POC 161 70 - 199 mg/dL Blood 04/26/2025 8:16 AM CDT 04/26/2025 8:16 AM CDT Leticia Castellanos MD LAB POCT ORDERABLES - DEV ICE Final Result [facility] ([place]) 1 [facility] [place] [address] * eGFR (04/26/2025 7:17 AM CDT) Pathologist [facility] eGFR >90 >=60 mL/min/1. 73 m2 Comment: Interpretive Data Reference Interval Normal >/= 90 mL/min/1.73m2 Mildly decreased* 60 - 89 mL/min/1.73m2 Mildly to moderately decreased 45 - 59 mL/min/1.73m2 Moderately to severely decreased 30 - 44 mL/min/1.73m2 Severely decreased 15 - 29 mL/min/1.73m2 Kidney Failure < 15 mL/min/1.73m2 *Relative to young adult level Estimated glomerular filtration rate is determined by the 2020 CKD-EPI equation recommended by the National Kidney Foundation (A Unifying Approach to GFR Estimation: Recommendations of the NKF-ASK Task Force on Reassessing the Inclusion of Race in Diagnosing Kidney Disease, JASN 2020). The CKD-EPI equation should not be used for patients with unstable renal function and has not been validated in children and those over 70. Current interpretive data was last reviewed 2021. Blood 04/26/2025 7:17 AM CDT 04/26/2025 7:34 AM CDT us Tiffany Peters MD LAB BLOOD ORDERABLES Fi nal Result [facility] ([place]) 1 [facility] Department [place] [address] * Differential, auto (04/26/2025 7:17 AM CDT) Neutrophil abs 6.36 1.50 - 6.50 K/cumm Imm gran abs 0.06 0.00 - 0.10 K/cumm [facility] ([place]) Lymphocyte abs 2.10 0.80 - 3.30 K/cumm [facility] ([place]) Monocyte abs 0.77 0.20 - 0.80 K/cumm [facility] ([place]) Eosinophil abs 0.11 0.00 - 0.50 K/cumm [facility] ([place]) Basophil abs 0.06 0.00 - 0.10 K/cumm [facility] ([place]) Neutrophil pct 67.3 % [facility] ([place]) Comment: Interpretive Data Percent cell count reference ranges are not reported, since discordance with absolute values may lead to misinterpretation of CBC data. Current Interpretive Data was last revised on 2018. Imm gran pct 0.6 % [facility]) Comment: Interpretive Data Percent cell count reference ranges are not reported, since discordance with absolute values may lead to misinterpretation of CBC data. Current Interpretive Data was last revised on 2018. Lymphocyte pct 22.2 % [facility]) Comment: Interpretive Data Percent cell count reference ranges are not reported, since discordance with absolute values may lead to misinterpretation of CBC data. Current Interpretive Data was last revised on 2018. Monocyte pct 8.1 % [facility]) Comment: Interpretive Data Percent cell count reference ranges are not reported, since discordance with absolute values may lead to misinterpretation of CBC data. Current Interpretive Data was last revised on 2018. Eosinophil pct 1.2 % [facility]) Comment: Interpretive Data Percent cell count reference ranges are not reported, since discordance with absolute values may lead to misinterpretation of CBC data. Current Interpretive Data was last revised on 2018. Basophil pct 0.6 % [facility]) Comment: Interpretive Data Percent cell count reference ranges are not reported, since discordance with absolute values may lead to misinterpretation of CBC data. Current Interpretive Data was last revised on 2018. Blood 04/26/2025 7:17 AM CDT 04/26/2025 7:34 AM CDT us Tiffany Peters MD LAB BLOOD ORDERABLES Fi nal Result [facility] ([place]) 1 [facility] [place] [address] * CBC with auto differential (04/26/2025 7:17 AM CDT) WBC 9.46 3.80 - 9.90 K/cumm Hgb 12.8 11.9 - 15.5 g/dL [facility]) Hct 37.4 35.6 - 45.5 % [facility]) Plt 219 150 - 400 K/cumm [facility]) MPV 10.4 9.1 - 12.3 fL [facility]) RBC 4.25 3.90 - 5.20 M/cumm [facility] [place]) MCV 88.0 81.3 - 96.4 fL [facility]) MCH 30.1 27.1 - 33.3 pg [facility]) MCHC 34.2 32.3 - 35.7 g/dL [facility]) RDW CV 12.4 11.1 - 14.9 % [facility]) RDW SD 40.1 35.7 - 48.1 fL [facility]) NRBC abs 0.00 0.00 - 0.01 K/cumm [facility]) Blood 04/26/2025 7:17 AM CDT 04/26/2025 7:34 AM CDT Tiffany Peters MD LAB BLOOD ORDERABLES Fi nal Result [facility] ([place]) [address] [place] [address] * Magnesium (04/26/2025 7:17 AM CDT) Magnesium 1.7 1.4 - 2.5 mg/dL Blood 04/26/2025 7:17 AM CDT 04/26/2025 7:34 AM CDT Tiffany Peters MD LAB BLOOD ORDERABLES Fi nal Result Performing Organization Address [facility] de Phone Number [facility] ([place]) [address] [facility] [place] [address] * (ABNORMAL) Comprehensive metabolic panel (04/26/2025 7:17 AM CDT) Sodium 138 135 - 145 mmol/L Potassium, pl 3.3 3.3 - 4.9 mmol/L [facility] ([place]) Chloride 103 97 - 110 mmol/L [facility] ([place]) CO2 22 22 - 32 mmol/L [facility] [place]) Anion gap 14 2 - 15 mmol/L [facility] ([place]) BUN 6 6 - 25 mg/dL [facility] ([place]) Creatinine 0.41(L) 0.60 - 1.10 mg/dL [facility] ([place]) Glucose 174 70 - 199 mg/dL [facility] ([place]) Comment: Interpretive Data Fasting glucose >/= 126 mg/dl is diagnostic for diabetes. Fasting is defined as no caloric intake for at least 8 hours. Fasting glucose between 100 mg/dl to 125 mg/dl is diagnostic of prediabetes. In a patient with classic symptoms of hyperglycemia or hyperglycemic crisis, a random glucose >/= 200 mg/dl is diagnostic for diabetes. In the absence of unequivocal hyperglycemia, results should be confirmed by repeat testing. The classification and Diagnosis of Diabetes Diabetes Care 2021; 46: S19-S40. Current interpretive data was last revised 2022. Calcium 8.1(L) 8.5 - 10.3 mg/dL [facility] (JOSE J) Bilirubin, total 0.4 0.1 - 1.2 mg/dL [facility] ([place] [facility]) Protein, pl 5.8(L) 6.5 - 8.5 g/dL [facility] ([place]) Albumin 3.2(L) 3.5 - 5.0 g/dL [facility] ([place]) Alk phos 63 40 - 130 Units/L [facility] ([place]) ALT 22 7 - 45 Units/L [facility] ([place]) AST 21 10 - 45 Units/L [facility] ([place]) Blood 04/26/2025 7:17 AM CDT 04/26/2025 7:34 AM CDT Tiffany Peters MD LAB BLOOD ORDERABLES [facility] Result [facility] ([facility] [address] [facility] Department of Laboratories [place], [place] [id number] * (ABNORMAL) Oxycodone Confirmation, Urine (04/26/2025 1:58 AM CDT) Oxycodone Conf, Ur Confirmed Positive(A) CutOff 50 ng/mL Comment:Testing performed by : [facility], [address] [place]., [address] Oxymorphone Conf, Ur Does Not Confirm CutOff 50 ng/mL [facility] ([place] [facility]) Comment: Interpretive Data This test detects the presence or absence of drug compounds using LC Tandem mass spectrometry and is not intended to assess compliance with prescribed medications. While this test is highly specific, false positive and false negative results may occur in very rare circumstances. Contact the laboratory for consultation, if needed. Performance characteristics were determined by the [facility] in a manner consistent with CLIA requirement and has not been cleared or approved by the U.S. Food and Drug Administration. Current interpretive data was last revised 2021. Testing performed by: [facility], [address] [facility], [place]., [address] Urine 04/26/2025 1:58 AM CDT 04/26/2025 3:52 PM CDT us Tiffany Peters MD LAB URINE ORDERABLES Fi nal Result [facility] ([place]) [address] [facility] Department [place] [address] * (ABNORMAL) Drugs of Abuse Screen, Urine with Reflex Confirmation (04/26/2025 1:58 AM CDT) Pathologist [facility] Amphetamine, ur Not Detected CutOff 500ng/mL Comment: Interpretive Data - Amphetamines: Samples containing greater than 500 ng/mL d-methamphetamine or other cross-reacting amphetamine compounds are reported as positive. Amphetamine immunoassays are subject to significant false positive rates due to cross-reactivity of non-amphetamine drugs. Confirmatory testing required for definitive results. Current Interpretive Data was last reviewed 2023. Barbiturates, ur Not Detected CutOff 200ng/mL [facility] (JO[place] J) Comment: Interpretive Data - Barbiturates: Samples containing greater than 200 ng/mL secobarbital or other cross-reacting barbiturate compounds are reported as positive. False positive and false negative results are possible. Confirmatory testing required for definitive results. Current Interpretive Data was last reviewed 2023. Benzodiazepines, ur Not Detected CutOff 100ng/mL [facility] ([place]) Comment: Interpretive Data - Benzodiazepines: Samples containing greater than 100 ng/mL nordiazepam or other cross-reacting compounds are reported as positive. False positive and false negative results are possible. Confirmatory testing required for definitive results. Current Interpretive Data was last reviewed 2023. Cannabinoids, ur Screen Positive, presumptive (A) CutOff 50 ng/mL [facility] ([place]) Comment: Interpretive Data - Cannabinoids: Samples containing greater than 50 ng/mL delta-9 THC -COOH or other cross- reacting compounds are reported as positive. False positive and false negative results are possible. Confirmatory testing required for definitive results. Current Interpretive Data was last reviewed 2023. Cocaine, ur Not Detected CutOff 150ng/mL [facility] ([place]) Comment: Interpretive Data - Cocaine: Samples containing greater than 150 ng/mL benzoylecgonine or other cross- reacting compounds are reported as positive. False positive and false negative results are possible. Confirmatory testing required for definitive results. Current Interpretive Data was last reviewed 2023. Fentanyl, Ur Not Detected CutOff 5 ng/mL [facility] ([place]) Comment: Interpretive Data - Fentanyl: Samples containing greater than 5 ng/mL norfentanyl, fentanyl, or other cross-reacting fentanyl compounds are reported as positive. False positive and false negative results are possible. Confirmatory testing required for definitive results. Current Interpretive Data was last reviewed 2023. Methadone, ur Not Detected CutOff 300ng/mL [facility] ([place]) Comment: Interpretive Data - Methadone: Samples containing greater than 300 ng/mL d,l-methadone or other cross-reacting compounds are reported as positive. False positive and false negative results are possible. Confirmatory testing required for definitive results. Current Interpretive Data was last reviewed 2023. Opiates, ur Not Detected CutOff 300ng/mL [facility] ([place]) Comment: Interpretive Data - Opiates: Samples containing greater than 300 ng/mL morphine or other cross-reacting compounds are reported as positive. False positive and false negative results are possible. Confirmatory testing required for definitive results. Current Interpretive Data was last reviewed 2023. Oxycodone, ur Screen Positive, presumptive (A) CutOff 100ng/mL [facility] ([place]) Comment: Interpretive Data - Oxycodone: Samples containing greater than 100 ng/mL oxycodone or other cross-reacting compounds are reported as positive. False positive and false negative results are possible. Confirmatory testing required for definitive results. Current Interpretive Data was last reviewed 2023. Phencyclidine, ur Not Detected CutOff 25 ng/mL [facility] ([place]) Comment: Interpretive Data - Phencyclidine: Samples containing greater than 25 ng/mL phencyclidine or other cross-reacting compounds are reported as positive. False positive and false negative results are possible. Confirmatory testing required for definitive results. Current Interpretive Data was last reviewed 2023. Urine Creatinine 64 mg/dL [facility] ([place] [facility]) Comment: Interpretive Data Urine Creatinine: < 10 mg/dL is extremely dilute = or > 10 but < 20 mg/dL is dilute = or > 20 mg/dL is normal Current Interpretive Data was last revised on 2018. Urine 04/26/2025 1:58 AM CDT 04/26/2025 2:05 AM CDT Narrative [facility] ([place]) - 04/26/2025 2:55 AM CDT Drug of Abuse screening is performed by immunoassay for medical purposes only. This is not to be used for Pain Management purposes. If Detected, confirmation testing will be performed for Amphetamines, Cocaine, Fentanyl, Methadone, Opiates, Oxycodone or Phencyclidine. us Tiffany Peters MD LAB URINE ORDERABLES Fi [facility] Result [facility] ([place]) [address] [place] [address] Department [place] [address] * (ABNORMAL) Urinalysis reflex to microscopic and culture Urine (04/26/2025 1:58 AM CDT) Color, ur Yellow Yellow Clarity, ur Clear Clear [facility] ([place]) Specific gravity, ur 1.010 1.003 - 1.030 [facility] ([place]) pH, urine 6.5 [facility] ([place]) Comment: Interpretive Data U rine pH is affected by diet, medications, systemic acid-base disturbances, and renal tubular function. pH may affect urinary stone formation. For example, urine pH below 6.0 may help reduce the tendency for calcium phosphate stones and pH greater than 6.0 may reduce the tendency for uric acid stone formation. Source: [facility] [employer] Current Interpretive Data was last revised on 2017 Protein, ur ql Trace Negative [facility] ([place]) Glucose, ur ql 4+(A) Negative [facility] ([place]) Ketones, ur 4+(A) Negative [facility] ([place]) Bilirubin, ur Negative Negative [facility] ([place]) Blood, ur Negative Negative [facility] ([place]) Urobilinogen, ur <2.0 <2.0 mg/dL [facility] ([place]) Nitrite, ur Negative Negative [facility] ([place]) Leukocyte esterase, ur Negative Negative [facility] (JO[place] J) UA reflex comment Reflex conditions for microscopic UA and culture not met. [facility] (JO[place] J) Urine 04/26/2025 1:58 AM CDT 04/26/2025 2:05 AM CDT Tiffany Peters MD LAB MICROBIOLOGY - GENE RAL ORDERABLES Final Result Performing Organization Address City/[facility]/ZIP Co de Phone Number [facility] ([place]) 1 [facility] [place] [address] * POCT glucose (04/26/2025 12:43 AM CDT) Glucose, POC 183 70 - 199 mg/dL Blood 04/26/2025 12:4 3 AM CDT 04/26/2025 12:43 AM CDT Tiffany Peters MD LAB POCT ORDERABLES - D EVICE Final Result Performing Organization Address [facility] Co de Phone Number [facility] ([place]) [address] [facility] [place] [address] * CT Abdomen Pelvis W Contrast (04/25/2025 11:11 PM CDT) Anatomical Region Laterality Modality Body N/A Computed Tomogra phy 04/25/2025 11:2 5 PM CDT Narrative 04/25/2025 11:28 PM CDT EXAM DESCRIPTION: CT ABDOMEN PELVIS W CONTRAST REASON FOR STUDY: abd pain Nausea, vomiting and abdominal pain. Hospitalized with recent infection and was given zofran for vomiting without relief. TECHNIQUE: CT scan of the abdomen and pelvis performed with intravenous and without oral contrast using helical scanning technique with dynamic intravenous contrast injection. Reconstructed coronal and sagittal MPR images reviewed. All images stored on PACS. Automated exposure control was used as a dose optimization technique for this examination. CONTRAST TYPE/DOSE: 100mL of IOVERSOL 350 MG IODINE/ML INTRAVENOUS SYRINGE injected via intravenous COMPARISON: CT of the abdomen and pelvis of April 20, 2025. FINDINGS: LOWER CHEST: The lung bases are clear. LIVER: Hypoattenuation along the falciform ligament consistent with an incidental perfusional anomaly or focal fatty infiltration. GALLBLADDER: No stones identified. Normal wall. No evidence of pericholecystic fluid. BILE DUCTS: No intrahepatic or extrahepatic ductal dilatation. PANCREAS: Normal. SPLEEN: Normal size. No focal lesions. ADRENALS: Normal. KIDNEYS/URINARY TRACT: No identified significant cystic or solid masses. No visualized stones. No hydronephrosis or hydroureter. Urinary bladder is unremarkable. VASCULATURE: There is mild atherosclerosis of the aorta. GI: The stomach appears normal. There is no significant small bowel dilation or visible thickening. No gross colonic abnormalities identified. The appendix is normal. PERITONEUM/MESENTERY: No ascites or free air. LYMPH NODES: There are no enlarged lymph nodes seen by CT size criteria. REPRODUCTIVE: The patient is status post hysterectomy. No adnexal pathology is seen. MUSCULOSKELETAL: No significant abnormality. OTHER: The area of cellulitis seen of the left inferior gluteal fold on previous study is below the plane of the exam today. IMPRESSION: 1. No CT evidence of acute intra-abdominal or intrapelvic process. 2. Mild atherosclerosis of the aorta. 3. Status post hysterectomy. THIS IS AN ELECTRONICALLY VERIFIED FINAL REPORT 04/25/2025 11:28 PM - Electronically signed by Ronit Nielson M.D. SN: Report ID: [id number] Reading Location: [id number] Procedure Note Ronit Nielson MD - 04/25/2025 EXAM DESCRIPTION: CT ABDOMEN PELVIS W CONTRAST REASON FOR STUDY: abd pain Nausea, vomiting and abdominal pain. Hospitalized with recent infectionand was given zofran for vomiting without relief. TECHNIQUE: CT scan of the abdomen and pelvis performed with intravenousand without oral contrast using helical scanning technique with dynamic intravenous contrast injection. Reconstructed coronal and sagittal MPRimages reviewed. All images stored on PACS. Automated exposure control was usedas a dose optimization technique for this examination. CONTRAST TYPE/DOSE: 100mL of IOVERSOL 350 MG IODINE/ML INTRAVENOUSSYRINGE injected via intravenous COMPARISON: CT of the abdomen and pelvis of April 20, 2025. FINDINGS: LOWER CHEST: The lung bases are clear. LIVER: Hypoattenuation along the falciform ligament consistent with an incidental perfusional anomaly or focal fatty infiltration. GALLBLADDER: No stones identified. Normal wall. No evidence of pericholecystic fluid. BILE DUCTS: No intrahepatic or extrahepatic ductal dilatation. PANCREAS: Normal. SPLEEN: Normal size. No focal lesions. ADRENALS: Normal. KIDNEYS/URINARY TRACT: No identified significant cystic or solid masses.No visualized stones. No hydronephrosis or hydroureter. Urinary bladder is unremarkable. VASCULATURE: There is mild atherosclerosis of the aorta. GI: The stomach appears normal. There is no significant small bowel dilation or visible thickening. No gross colonic abnormalitiesidentified. The appendix is normal. PERITONEUM/MESENTERY: No ascites or free air. LYMPH NODES: There are no enlarged lymph nodes seen by CT size criteria. REPRODUCTIVE: The patient is status post hysterectomy. No adnexalpathology is seen. MUSCULOSKELETAL: No significant abnormality. OTHER: The area of cellulitis seen of the left inferior gluteal fold on previous study is below the plane of the exam today. IMPRESSION: 1. No CT evidence of acute intra-abdominal or intrapelvic process. 2. Mild atherosclerosis of the aorta. 3. Status post hysterectomy. THIS IS AN ELECTRONICALLY VERIFIED FINAL REPORT 04/25/2025 11:28 PM - Electronically signed by Ronit Nielson M.D. SN: Report ID: [id number] Reading Location: [id number] us Tiffany Peters MD IMG CT PROCEDURES Final Result * ECG 12 lead (04/25/2025 10:29 PM CDT) 04/25/2025 10:2 9 PM CDT [facility] - 04/26/2025 3:32 PM CDT Vent Rate: 103 bpm RR Interval: 580 msec WA Interval: 160 msec QRS Duration: 75 msec QT Interval: 341 msec QTC Interval: 401 msec P-R-T [place]: 65 - 1 - 29 degrees IMPRESSION: SINUS TACHYCARDIA ABNORMAL RHYTHM ECG Electronically Signed By: Brian Polanco MD Eric Vogt MD ECG ORDERABLES Final Result [facility] * Sepsis Lactate w/ Reflex (04/25/2025 9:50 PM CDT) Pathologist [facility] Sepsis Lactate 1.2 0.7 - 2.0 mmol/L Blood 04/25/2025 9:50 PM CDT 04/25/2025 9:54 PM CDT Eric Vogt MD LAB BLOOD ORDERABLES Final R esult Performing Organization Address City/[facility]/ZIP Co de Phone Number [facility] ([place]) 1 [facility] [employer] [place] [address] * Lipase (04/25/2025 9:50 PM CDT) [facility] Lipase 52 10 - 99 Units/L Blood 04/25/2025 9:50 PM CDT 04/26/2025 12:48 AM CDT Tiffany Peters MD LAB BLOOD ORDERABLES Fi nal Result Performing Organization Address City/[facility]/ZIP Co de Phone Number [facility] ([place]) 1 [facility] [employer] [place] [address] * eGFR (04/25/2025 7:43 PM CDT) Pathologist [facility] eGFR >90 >=60 mL/min/1. 73 m2 Comment: Interpretive Data Reference Interval Normal >/= 90 mL/min/1.73m2 Mildly decreased* 60 - 89 mL/min/1.73m2 Mildly to moderately decreased 45 - 59 mL/min/1.73m2 Moderately to severely decreased 30 - 44 mL/min/1.73m2 Severely decreased 15 - 29 mL/min/1.73m2 Kidney Failure < 15 mL/min/1.73m2 *Relative to young adult level Estimated glomerular filtration rate is determined by the 2020 CKD-EPI equation recommended by the National Kidney Foundation (A Unifying Approach to GFR Estimation: Recommendations of the NKF-ASK Task Force on Reassessing the Inclusion of Race in Diagnosing Kidney Disease, JASN 2020). The CKD-EPI equation should not be used for patients with unstable renal function and has not been validated in children and those over 70. Current interpretive data was last reviewed 2021. Blood 04/25/2025 7:43 PM CDT 04/25/2025 7:50 PM CDT us Eric Vogt MD LAB BLOOD ORDERABLES Final R esult [facility] ([place]) 1 [facility] Department [place] [address] * (ABNORMAL) Differential, auto (04/25/2025 7:43 PM CDT) Neutrophil abs 10.46(H) 1.50 - 6.50 K/cumm Imm gran abs 0.09 0.00 - 0.10 K/cumm [facility] ([place]) Lymphocyte abs 2.08 0.80 - 3.30 K/cumm [facility] ([place]) Monocyte abs 1.00(H) 0.20 - 0.80 K/cumm [facility] ([place]) Eosinophil abs 0.09 0.00 - 0.50 K/cumm [facility] ([place]) Basophil abs 0.08 0.00 - 0.10 K/cumm [facility] ([place]) Neutrophil pct 75.7 % [facility] ([place]) Comment: Interpretive Data Percent cell count reference ranges are not reported, since discordance with absolute values may lead to misinterpretation of CBC data. Current Interpretive Data was last revised on 2018. Imm gran pct 0.7 % [facility] ([place]) Comment: Interpretive Data Percent cell count reference ranges are not reported, since discordance with absolute values may lead to misinterpretation of CBC data. Current Interpretive Data was last revised on 2018. Lymphocyte pct 15.1 % [facility] ([place]) Comment: Interpretive Data Percent cell count reference ranges are not reported, since discordance with absolute values may lead to misinterpretation of CBC data. Current Interpretive Data was last revised on 2018. Monocyte pct 7.2 % [facility] ([place]) Comment: Interpretive Data Percent cell count reference ranges are not reported, since discordance with absolute values may lead to misinterpretation of CBC data. Current Interpretive Data was last revised on 2018. Eosinophil pct 0.7 % [facility] ([place]) Comment: Interpretive Data Percent cell count reference ranges are not reported, since discordance with absolute values may lead to misinterpretation of CBC data. Current Interpretive Data was last revised on 2018. Basophil pct 0.6 % [facility] ([place]) Comment: Interpretive Data Percent cell count reference ranges are not reported, since discordance with absolute values may lead to misinterpretation of CBC data. Current Interpretive Data was last revised on 2018. Blood 04/25/2025 7:43 PM CDT 04/25/2025 7:50 PM CDT us Eric Vogt MD LAB BLOOD ORDERABLES Final R esult [facility] ([place]) 1 [facility] Department [place] [address] * (ABNORMAL) CBC with auto differential (04/25/2025 7:43 PM CDT) WBC 13.80(H) 3.80 - 9.90 K/cumm Hgb 14.3 11.9 - 15.5 g/dL [facility] ([place]) Hct 41.9 35.6 - 45.5 % [facility] ([place]) Plt 281 150 - 400 K/cumm [facility] ([place]) MPV 10.4 9.1 - 12.3 fL [facility] ([place]) RBC 4.80 3.90 - 5.20 M/cumm [facility] ([place]) MCV 87.3 81.3 - 96.4 fL [facility] ([place]) MCH 29.8 27.1 - 33.3 pg [facility] ([place]) MCHC 34.1 32.3 - 35.7 g/dL [facility] ([place]) RDW CV 12.5 11.1 - 14.9 % [facility] ([place]) RDW SD 39.5 35.7 - 48.1 fL [facility] ([place] NRBC abs 0.00 0.00 - 0.01 K/cumm [facility] ([place]) Blood Venous blood specimen / Unknown 04/25/2025 7:43 PM CDT 04/25/2025 7:50 PM CDT us Eric Vogt MD LAB BLOOD ORDERABLES Final R esult [facility] ([place]) 1 [facility] Department [place] [address] * (ABNORMAL) Comprehensive metabolic panel (04/25/2025 7:43 PM CDT) Sodium 138 135 - 145 mmol/L Potassium, pl 3.9 3.3 - 4.9 mmol/L [facility] ([place]) Chloride 99 97 - 110 mmol/L [facility] ([place]) CO2 23 22 - 32 mmol/L [facility] ([place]) Anion gap 16(H) 2 - 15 mmol/L [facility] ([place]) BUN 8 6 - 25 mg/dL [facility] ([place]) Creatinine 0.47(L) 0.60 - 1.10 mg/dL [facility] ([place]) Glucose 191 70 - 199 mg/dL [facility] ([place]) Comment: Interpretive Data Fasting glucose >/= 126 mg/dl is diagnostic for diabetes. Fasting is defined as no caloric intake for at least 8 hours. Fasting glucose between 100 mg/dl to 125 mg/dl is diagnostic of prediabetes. In a patient with classic symptoms of hyperglycemia or hyperglycemic crisis, a random glucose >/= 200 mg/dl is diagnostic for diabetes. In the absence of unequivocal hyperglycemia, results should be confirmed by repeat testing. The classification and Diagnosis of Diabetes Diabetes Care 2021; 46: S19-S40. Current interpretive data was last revised 2022. Calcium 9.2 8.5 - 10.3 mg/dL [facility] ([place]) Bilirubin, total 0.6 0.1 - 1.2 mg/dL [facility] ([place]) Protein, pl 7.0 6.5 - 8.5 g/dL [facility] ([place]) Albumin 3.4(L) 3.5 - 5.0 g/dL [facility] ([place]) Alk phos 83 40 - 130 Units/L [facility] ([place]) ALT 31 7 - 45 Units/L [facility] ([place]) AST 44 10 - 45 Units/L [facility] ([place]) Blood Venous blood specimen / Unknown 04/25/2025 7:43 PM CDT 04/25/2025 7:50 PM CDT Eric Vogt MD LAB BLOOD ORDERABLES Final R esult Performing Organization Address City/[facility]/ZIP Co de Phone Number [facility] ([place]) 1 [facility] [place] [address] * (ABNORMAL) POCT glucose (04/22/2025 12:33 PM CDT) [facility] Glucose, POC 228(H) 70 - 199 mg/dL Blood 04/22/2025 12:3 3 PM CDT 04/22/2025 12:33 PM CDT Uyen Clifford MD LAB POCT ORDERABLES - DEVICE F inal Result [facility] ([place]) [address] [facility] [place] [address] * eGFR (04/22/2025 9:05 AM CDT) [facility] eGFR >90 >=60 mL/min/1. 73 m2 Comment: Interpretive Data Reference Interval Normal >/= 90 mL/min/1.73m2 Mildly decreased* 60 - 89 mL/min/1.73m2 Mildly to moderately decreased 45 - 59 mL/min/1.73m2 Moderately to severely decreased 30 - 44 mL/min/1.73m2 Severely decreased 15 - 29 mL/min/1.73m2 Kidney Failure < 15 mL/min/1.73m2 *Relative to young adult level Estimated glomerular filtration rate is determined by the 2020 CKD-EPI equation recommended by the National Kidney Foundation (A Unifying Approach to GFR Estimation: Recommendations of the NKF-ASK Task Force on Reassessing the Inclusion of Race in Diagnosing Kidney Disease, JASN 2020). The CKD-EPI equation should not be used for patients with unstable renal function and has not been validated in children and those over 70. Current interpretive data was last reviewed 2021. Blood 04/22/2025 9:05 AM CDT 04/22/2025 9:08 AM CDT us Uyen Clifford MD LAB BLOOD ORDERABLES Final Res ult Performing Organization Address City/[facility]/ZIP Co de Phone Number [facility] ([place]) [address] [facility] [place] [address] * (ABNORMAL) Vancomycin level trough (04/22/2025 9:05 AM CDT) Pathologist [facility] Vancomycin trough 6.5(L) 10.0 - 20.0 mcg/mL Blood 04/22/2025 9:05 AM CDT 04/22/2025 9:08 AM CDT us Ernesto Gandhi NP LAB BLOOD ORDERABLES Final Result [facility] ([place]) 1 [facility] Department [place] [address] * (ABNORMAL) Basic metabolic panel (04/22/2025 9:05 AM CDT) Sodium 135 135 - 145 mmol/L Potassium, pl 4.0 3.3 - 4.9 mmol/L [facility] ([place]) Chloride 98 97 - 110 mmol/L [facility] ([place]) CO2 22 22 - 32 mmol/L [facility] ([place]) Anion gap 15 2 - 15 mmol/L [facility] ([place]) BUN 11 6 - 25 mg/dL [facility] ([place]) Creatinine 0.51(L) 0.60 - 1.10 mg/dL [facility] ([place]) Glucose 275(H) 70 - 199 mg/dL [facility] ([place]) Comment: Interpretive Data Fasting glucose >/= 126 mg/dl is diagnostic for diabetes. Fasting is defined as no caloric intake for at least 8 hours. Fasting glucose between 100 mg/dl to 125 mg/dl is diagnostic of prediabetes. In a patient with classic symptoms of hyperglycemia or hyperglycemic crisis, a random glucose >/= 200 mg/dl is diagnostic for diabetes. In the absence of unequivocal hyperglycemia, results should be confirmed by repeat testing. The classification and Diagnosis of Diabetes Diabetes Care 2021; 46: S19-S40. Current interpretive data was last revised 2022. Calcium 8.8 8.5 - 10.3 mg/dL [facility] ([place]) Blood 04/22/2025 9:05 AM CDT 04/22/2025 9:08 AM CDT Uyen Clifford MD LAB BLOOD ORDERABLES Final Res ult [facility] ([place]) [address] [facility] [facility] [address] [place] [address] * (ABNORMAL) POCT glucose (04/22/2025 7:54 AM CDT) Glucose, POC 268(H) 70 - 199 mg/dL Blood 04/22/2025 7:54 AM CDT 04/22/2025 7:54 AM CDT Uyen Clifford MD LAB POCT ORDERABLES - DEVICE F inal Result [facility] ([place]) 1 [facility] [employer] [place] [address] * eGFR (04/22/2025 5:19 AM CDT) eGFR >90 >=60 mL/min/1. 73 m2 Comment: Interpretive Data Reference Interval Normal >/= 90 mL/min/1.73m2 Mildly decreased* 60 - 89 mL/min/1.73m2 Mildly to moderately decreased 45 - 59 mL/min/1.73m2 Moderately to severely decreased 30 - 44 mL/min/1.73m2 Severely decreased 15 - 29 mL/min/1.73m2 Kidney Failure < 15 mL/min/1.73m2 *Relative to young adult level Estimated glomerular filtration rate is determined by the 2020 CKD-EPI equation recommended by the National Kidney Foundation (A Unifying Approach to GFR Estimation: Recommendations of the NKF-ASK Task Force on Reassessing the Inclusion of Race in Diagnosing Kidney Disease, JASN 2020). The CKD-EPI equation should not be used for patients with unstable renal function and has not been validated in children and those over 70. Current interpretive data was last reviewed 2021. Blood 04/22/2025 5:19 AM CDT 04/22/2025 6:19 AM CDT us Ernesto Gandhi LIQUOR GALLERY OPERATOR LAB BLOOD ORDERABLES Final Result [facility] ([place]) 1 [facility] [place] [address] * (ABNORMAL) Differential, auto (04/22/2025 5:19 AM CDT) Pathologist [facility] Neutrophil abs 11.24(H) 1.50 - 6.50 K/cumm Imm gran abs 0.08 0.00 - 0.10 K/cumm [facility] ([place]) Lymphocyte abs 2.24 0.80 - 3.30 K/cumm [facility] ([place]) Monocyte abs 0.98(H) 0.20 - 0.80 K/cumm [facility] ([place]) Eosinophil abs 0.08 0.00 - 0.50 K/cumm [facility] ([place]) Basophil abs 0.06 0.00 - 0.10 K/cumm [facility] ([place]) Neutrophil pct 76.6 % [facility] ([place]) Comment: Interpretive Data Percent cell count reference ranges are not reported, since discordance with absolute values may lead to misinterpretation of CBC data. Current Interpretive Data was last revised on 2018. Imm gran pct 0.5 % [facility] ([place]) Comment: Interpretive Data Percent cell count reference ranges are not reported, since discordance with absolute values may lead to misinterpretation of CBC data. Current Interpretive Data was last revised on 2018. Lymphocyte pct 15.3 % [facility] ([place]) Comment: Interpretive Data Percent cell count reference ranges are not reported, since discordance with absolute values may lead to misinterpretation of CBC data. Current Interpretive Data was last revised on 2018. Monocyte pct 6.7 % [facility] ([place]) Comment: Interpretive Data Percent cell count reference ranges are not reported, since discordance with absolute values may lead to misinterpretation of CBC data. Current Interpretive Data was last revised on 2018. Eosinophil pct 0.5 % [facility] ([place]) Comment: Interpretive Data Percent cell count reference ranges are not reported, since discordance with absolute values may lead to misinterpretation of CBC data. Current Interpretive Data was last revised on 2018. Basophil pct 0.4 % [facility] ([place]) Comment: Interpretive Data Percent cell count reference ranges are not reported, since discordance with absolute values may lead to misinterpretation of CBC data. Current Interpretive Data was last revised on 2018. Blood 04/22/2025 5:19 AM CDT 04/22/2025 6:19 AM CDT us Uyen Clifford MD LAB BLOOD ORDERABLES Final Res ult [facility] ([place]) 1 [facility] Department of Laboratories [place], [place] [id number] * (ABNORMAL) CBC with auto differential (04/22/2025 5:19 AM CDT) WBC 14.68(H) 3.80 - 9.90 K/cumm Hgb 13.9 11.9 - 15.5 g/dL [facility] ([place]) Hct 40.7 35.6 - 45.5 % [facility] ([place]) Plt 192 150 - 400 K/cumm [facility] ([place]) MPV 11.3 9.1 - 12.3 fL [facility] ([place]) RBC 4.56 3.90 - 5.20 M/cumm [facility] ([place]) MCV 89.3 81.3 - 96.4 fL [facility] ([place]) MCH 30.5 27.1 - 33.3 pg [facility] ([place]) MCHC 34.2 32.3 - 35.7 g/dL [facility] ([place]) RDW CV 12.7 11.1 - 14.9 % [facility] ([place]) RDW SD 41.1 35.7 - 48.1 fL [facility] ([place]) NRBC abs 0.00 0.00 - 0.01 K/cumm [facility] ([place]) Blood 04/22/2025 5:19 AM CDT 04/22/2025 6:19 AM CDT us Uyen Clifford MD LAB BLOOD ORDERABLES Final Res ult [facility] ([place]) 1 [facility] [address] [place] [address] * (ABNORMAL) Creatinine (04/22/2025 5:19 AM CDT) Creatinine 0.49(L) 0.60 - 1.10 mg/dL Blood 04/22/2025 5:19 AM CDT 04/22/2025 6:19 AM CDT Narrative [facility] - 04/22/2025 6:49 AM CDT Per pharmacy vancomycin protocol us Ernesto Gandhi NP LAB BLOOD ORDERABLES Final Result [facility] ([place]) 1 [facility] [address] [place] [address] * (ABNORMAL) POCT glucose (04/22/2025 3:45 AM CDT) Glucose, POC 230(H) 70 - 199 mg/dL Blood 04/22/2025 3:45 AM CDT 04/22/2025 3:45 AM CDT Uyen Clifford MD LAB POCT ORDERABLES - DEVICE F inal Result [facility] ([place]) [address] [facility] [place] [address] * (ABNORMAL) POCT glucose (04/21/2025 9:37 PM CDT) Glucose, POC 241(H) 70 - 199 mg/dL Blood 04/21/2025 9:37 PM CDT 04/21/2025 9:37 PM CDT Uyen Clifford MD LAB POCT ORDERABLES - DEVICE F inal Result Performing Organization Address [facility]/ZIP Co de Phone Number [facility] ([place]) 1 [facility] [place] [place] [address] * (ABNORMAL) POCT glucose (04/21/2025 5:02 PM CDT) Glucose, POC 213(H) 70 - 199 mg/dL Blood 04/21/2025 5:02 PM CDT 04/21/2025 5:02 PM CDT Uyen Clifford MD LAB POCT ORDERABLES - DEVICE F inal Result [facility] ([place]) 1 [facility] [place] [address] * (ABNORMAL) POCT glucose (04/21/2025 12:03 PM CDT) Glucose, POC 221(H) 70 - 199 mg/dL Blood 04/21/2025 12:0 3 PM CDT 04/21/2025 12:03 PM CDT Uyen Clifford MD LAB POCT ORDERABLES - DEVICE F inal Result Performing Organization Address City/[facility] Co de Phone Number [facility] ([place]) [address] [facility] [place] [address] * (ABNORMAL) POCT glucose (04/21/2025 9:50 AM CDT) Glucose, POC 237(H) 70 - 199 mg/dL Blood 04/21/2025 9:50 AM CDT 04/21/2025 9:50 AM CDT Uyen Clifford MD LAB POCT ORDERABLES - DEVICE F inal Result Performing Organization Address [facility] Co de Phone Number [facility] ([place]) [address] [facility] [place] [address] * (ABNORMAL) POCT glucose (04/21/2025 8:49 AM CDT) Glucose, POC 241(H) 70 - 199 mg/dL Blood 04/21/2025 8:49 AM CDT 04/21/2025 8:49 AM CDT Uyen Clifford MD LAB POCT ORDERABLES - DEVICE F inal Result Performing Organization Address City/[facility] Co de Phone Number [facility] ([place]) [address] [facility] [place] [address] * (ABNORMAL) POCT glucose (04/21/2025 7:53 AM CDT) Glucose, POC 253(H) 70 - 199 mg/dL Blood 04/21/2025 7:53 AM CDT 04/21/2025 7:53 AM CDT Uyen Clifford MD LAB POCT ORDERABLES - DEVICE F inal Result Performing Organization Address City/[facility]/ZIP Co de Phone Number [facility] ([place]) 1 [facility] [place] [address] * eGFR (04/21/2025 5:06 AM CDT) Pathologist [facility] eGFR >90 >=60 mL/min/1. 73 m2 Comment: Interpretive Data Reference Interval Normal >/= 90 mL/min/1.73m2 Mildly decreased* 60 - 89 mL/min/1.73m2 Mildly to moderately decreased 45 - 59 mL/min/1.73m2 Moderately to severely decreased 30 - 44 mL/min/1.73m2 Severely decreased 15 - 29 mL/min/1.73m2 Kidney Failure < 15 mL/min/1.73m2 *Relative to young adult level Estimated glomerular filtration rate is determined by the 2020 CKD-EPI equation recommended by the National Kidney Foundation (A Unifying Approach to GFR Estimation: Recommendations of the NKF-ASK Task Force on Reassessing the Inclusion of Race in Diagnosing Kidney Disease, JASN 2020). The CKD-EPI equation should not be used for patients with unstable renal function and has not been validated in children and those over 70. Current interpretive data was last reviewed 2021. Blood 04/21/2025 5:06 AM CDT 04/21/2025 5:17 AM CDT Ernesto Gandhi NP LAB BLOOD ORDERABLES Final Result [facility] ([place]) 1 [facility] [place] [address] * (ABNORMAL) Differential, auto (04/21/2025 5:06 AM CDT) Pathologist [facility] Neutrophil abs 11.32(H) 1.50 - 6.50 K/cumm Imm gran abs 0.05 0.00 - 0.10 K/cumm [facility] ([place]) Lymphocyte abs 2.19 0.80 - 3.30 K/cumm [facility] ([place]) Monocyte abs 1.05(H) 0.20 - 0.80 K/cumm [facility] ([place]) Eosinophil abs 0.04 0.00 - 0.50 K/cumm [facility] ([place]) Basophil abs 0.06 0.00 - 0.10 K/cumm [facility] ([place]) Neutrophil pct 77.0 % [facility] ([place]) Comment: Interpretive Data Percent cell count reference ranges are not reported, since discordance with absolute values may lead to misinterpretation of CBC data. Current Interpretive Data was last revised on 2018. Imm gran pct 0.3 % [facility] ([place]) Comment: Interpretive Data Percent cell count reference ranges are not reported, since discordance with absolute values may lead to misinterpretation of CBC data. Current Interpretive Data was last revised on 2018. Lymphocyte pct 14.9 % [facility] ([place]) Comment: Interpretive Data Percent cell count reference ranges are not reported, since discordance with absolute values may lead to misinterpretation of CBC data. Current Interpretive Data was last revised on 2018. Monocyte pct 7.1 % [facility] ([place]) Comment: Interpretive Data Percent cell count reference ranges are not reported, since discordance with absolute values may lead to misinterpretation of CBC data. Current Interpretive Data was last revised on 2018. Eosinophil pct 0.3 % [facility] ([place]) Comment: Interpretive Data Percent cell count reference ranges are not reported, since discordance with absolute values may lead to misinterpretation of CBC data. Current Interpretive Data was last revised on 2018. Basophil pct 0.4 % [facility] ([place]) Comment: Interpretive Data Percent cell count reference ranges are not reported, since discordance with absolute values may lead to misinterpretation of CBC data. Current Interpretive Data was last revised on 2018. Blood 04/21/2025 5:06 AM CDT 04/21/2025 5:17 AM CDT us Ernesto Gandhi NP LAB BLOOD ORDERABLES Final Result [facility] ([place]) 1 [facility] [place] [address] * (ABNORMAL) CBC with auto differential (04/21/2025 5:06 AM CDT) WBC 14.71(H) 3.80 - 9.90 K/cumm Hgb 13.1 11.9 - 15.5 g/dL [facility] ([place]) Hct 37.7 35.6 - 45.5 % [facility] ([place]) Plt 183 150 - 400 K/cumm [facility] ([place]) MPV 11.0 9.1 - 12.3 fL [facility] ([place]) RBC 4.34 3.90 - 5.20 M/cumm [facility] ([place]) MCV 86.9 81.3 - 96.4 fL [facility] ([place]) MCH 30.2 27.1 - 33.3 pg [facility] ([place]) MCHC 34.7 32.3 - 35.7 g/dL [facility] ([place]) RDW CV 12.4 11.1 - 14.9 % [facility] ([place]) RDW SD 39.2 35.7 - 48.1 fL [facility] ([place]) NRBC abs 0.00 0.00 - 0.01 K/cumm [facility] ([place]) Blood 04/21/2025 5:06 AM CDT 04/21/2025 5:17 AM CDT us Ernesto Gandhi LIQUOR GALLERY OPERATOR LAB BLOOD ORDERABLES Final Result [facility] 1 [facility] [place] [address] * (ABNORMAL) Comprehensive metabolic panel (04/21/2025 5:06 AM CDT) Pathologist [facility] Sodium 133(L) 135 - 145 mmol/L Potassium, pl 4.1 3.3 - 4.9 mmol/L [facility] ([place]) Chloride 98 97 - 110 mmol/L [facility] ([place]) CO2 20(L) 22 - 32 mmol/L [facility] ([place]) Anion gap 15 2 - 15 mmol/L [facility] ([place]) BUN 7 6 - 25 mg/dL [facility] ([place]) Creatinine 0.45(L) 0.60 - 1.10 mg/dL [facility] ([place]) Glucose 275(H) 70 - 199 mg/dL [facility] ([place]) Comment: Interpretive Data Fasting glucose >/= 126 mg/dl is diagnostic for diabetes. Fasting is defined as no caloric intake for at least 8 hours. Fasting glucose between 100 mg/dl to 125 mg/dl is diagnostic of prediabetes. In a patient with classic symptoms of hyperglycemia or hyperglycemic crisis, a random glucose >/= 200 mg/dl is diagnostic for diabetes. In the absence of unequivocal hyperglycemia, results should be confirmed by repeat testing. The classification and Diagnosis of Diabetes Diabetes Care 2021; 46: S19-S40. Current interpretive data was last revised 2022. Calcium 8.5 8.5 - 10.3 mg/dL [facility] ([place]) Bilirubin, total 0.7 0.1 - 1.2 mg/dL [facility] ([place]) Protein, pl 6.1(L) 6.5 - 8.5 g/dL [facility] ([place]) Albumin 3.3(L) 3.5 - 5.0 g/dL [facility] ([place]) Alk phos 89 40 - 130 Units/L [facility] ([place]) ALT 15 7 - 45 Units/L [facility] ([place]) AST 12 10 - 45 Units/L [facility] ([place]) Blood 04/21/2025 5:06 AM CDT 04/21/2025 5:17 AM CDT us Ernesto Gandhi NP LAB BLOOD ORDERABLES Final Result [facility] 1 [facility] Department of [facility] [place], [place] [id number] * (ABNORMAL) POCT glucose (04/20/2025 10:54 PM CDT) Glucose, POC 394(H) 70 - 199 mg/dL Blood 04/20/2025 10:5 4 PM CDT 04/20/2025 10:54 PM CDT us Jose Mckeon MD LAB POCT ORDERABLES - DEVICE Fi nal Result [facility] ([place]) 1 [facility] [place] [address] * CT Abdomen Pelvis W Contrast (04/20/2025 8:19 PM CDT) Anatomical Region Laterality Modality Body N/A Computed Tomogra phy 04/20/2025 9:47 PM CDT Narrative 04/20/2025 10:14 PM CDT EXAM DESCRIPTION: CT ABDOMEN PELVIS W CONTRAST REASON FOR STUDY: left gluteal cleft abscess Pt present today with large mass on her left inner thigh Stated she has had boils in the area before but this time the size Quadrupled over 2 days States it firm/tender painful when applying pressure such as firm push or body weight while sitting, Pt states didn't pop up until she was [place] (destination was not provided in history report ) TECHNIQUE: CT scan of the abdomen and pelvis performed with intravenous and without oral contrast using helical scanning technique with dynamic intravenous contrast injection. Reconstructed coronal and sagittal MPR images reviewed. All images stored on PACS. Automated exposure control was used as a dose optimization technique for this examination. CONTRAST TYPE/DOSE: 75mL of IOVERSOL 350 MG IODINE/ML INTRAVENOUS SYRINGE injected via intravenous COMPARISON: None FINDINGS: LOWER CHEST: No significant pulmonary abnormalities. No effusion. LIVER: Decreased attenuation as seen with fibrofatty changes. GALLBLADDER: No stones identified. No wall thickening or inflammatory changes. BILE DUCTS: No intrahepatic or extrahepatic ductal dilatation. SPLEEN: Normal size. No focal lesions. PANCREAS: No identified cystic or solid masses. No significant calcifications. No adjacent inflammation or peripancreatic fluid collections. Pancreatic duct not dilated. ADRENALS: Normal. KIDNEYS/URINARY TRACT: No identified significant cystic or solid masses. No visualized stones. No hydronephrosis or hydroureter. Symmetric enhancement. Urinary bladder is unremarkable. GI: No dilated bowel loops. No obvious wall thickening. Normal appendix. No significant diverticular disease. PERITONEUM: Trace free fluid within the pelvis. No evidence of free air. RETROPERITONEUM: No mass or adenopathy. REPRODUCTIVE: 3.6 cm cystic lesion on the left ovary. This finding would be better evaluated with pelvic ultrasound if clinically indicated. VASCULATURE: No abdominal aortic aneurysm. MUSCULOSKELETAL: No significant abnormality. OTHER: There is inflammatory stranding in the subcutaneous fat of the medial left gluteal region extending to the medial gluteal fold with associated skin thickening characteristic of cellulitis. There is no CT evidence of abscess. IMPRESSION: 1. Inflammatory stranding in the subcutaneous fat of the medial left gluteal region extending to the medial gluteal fold with associated skin thickening characteristic of cellulitis. There is no CT evidence of abscess. 2. 3.6 cm cystic lesion on the left ovary. This finding would be better evaluated with pelvic ultrasound. 3. Fatty infiltration of the liver. THIS IS AN ELECTRONICALLY VERIFIED FINAL REPORT 04/20/2025 10:14 PM - Electronically signed by Asif Gudino M.D. KT: ARIAN Report ID: [id number] Reading Location: [id number] Procedure Note Asif Gudino MD - 04/20/2025 EXAM DESCRIPTION: CT ABDOMEN PELVIS W CONTRAST REASON FOR STUDY: left gluteal cleft abscess Pt present today with large mass on her left inner thigh Stated she hashad boils in the area before but this time the size Quadrupled over 2 days States it firm/tender painful when applying pressure such as firm push orbody weight while sitting, Pt states didn't pop up until she was [place] (destination was not provided in history report ) TECHNIQUE: CT scan of the abdomen and pelvis performed with intravenousand without oral contrast using helical scanning technique with dynamic intravenous contrast injection. Reconstructed coronal and sagittal MPRimages reviewed. All images stored on PACS. Automated exposure control was usedas a dose optimization technique for this examination. CONTRAST TYPE/DOSE: 75mL of IOVERSOL 350 MG IODINE/ML INTRAVENOUSSYRINGE injected via intravenous COMPARISON: None FINDINGS: LOWER CHEST: No significant pulmonary abnormalities. No effusion. LIVER: Decreased attenuation as seen with fibrofatty changes. GALLBLADDER: No stones identified. No wall thickening or inflammatory changes. BILE DUCTS: No intrahepatic or extrahepatic ductal dilatation. SPLEEN: Normal size. No focal lesions. PANCREAS: No identified cystic or solid masses. No significant calcifications. No adjacent inflammation or peripancreatic fluidcollections. Pancreatic duct not dilated. ADRENALS: Normal. KIDNEYS/URINARY TRACT: No identified significant cystic or solid masses.No visualized stones. No hydronephrosis or hydroureter. Symmetricenhancement. Urinary bladder is unremarkable. GI: No dilated bowel loops. No obvious wall thickening. Normalappendix. No significant diverticular disease. PERITONEUM: Trace free fluid within the pelvis. No evidence of freeair. RETROPERITONEUM: No mass or adenopathy. REPRODUCTIVE: 3.6 cm cystic lesion on the left ovary. This findingwould be better evaluated with pelvic ultrasound if clinically indicated. VASCULATURE: No abdominal aortic aneurysm. MUSCULOSKELETAL: No significant abnormality. OTHER: There is inflammatory stranding in the subcutaneous fat of themedial left gluteal region extending to the medial gluteal fold with associatedskin thickening characteristic of cellulitis. There is no CT evidence ofabscess. IMPRESSION: 1. Inflammatory stranding in the subcutaneous fat of the medial leftgluteal region extending to the medial gluteal fold with associated skinthickening characteristic of cellulitis. There is no CT evidence of abscess. 2. 3.6 cm cystic lesion on the left ovary. This finding would be better evaluated with pelvic ultrasound. 3. Fatty infiltration of the liver. THIS IS AN ELECTRONICALLY VERIFIED FINAL REPORT 04/20/2025 10:14 PM - Electronically signed by Asif Gudino M.D. KT: KT Report ID: [id number] Reading Location: [place] [address] Ernesto Gandhi LIQUOR GALLERY OPERATOR IMG CT PROCEDURES Final Res ult * (ABNORMAL) Urinalysis reflex to microscopic and culture Urine (04/20/2025 7:34 PM CDT) Color, ur Yellow Yellow Clarity, ur Clear Clear [facility] ([place]) Specific gravity, ur 1.036(H) 1.003 - 1.030 [facility] ([place]) pH, urine 7.0 [facility] ([place]) Comment: Interpretive Data U rine pH is affected by diet, medications, systemic acid-base disturbances, and renal tubular function. pH may affect urinary stone formation. For example, urine pH below 6.0 may help reduce the tendency for calcium phosphate stones and pH greater than 6.0 may reduce the tendency for uric acid stone formation. Source: [facility] [employer] Current Interpretive Data was last revised on 2017 Protein, ur ql Negative Negative [facility] ([place]) Glucose, ur ql 4+(A) Negative [facility] ([place]) Ketones, ur Trace Negative [facility] ([place]) Bilirubin, ur Negative Negative [facility] ([place]) Blood, ur Negative Negative [facility] ([place]) Urobilinogen, ur <2.0 <2.0 mg/dL [facility] ([place]) Nitrite, ur Negative Negative [facility] ([place]) Leukocyte esterase, ur 3+(A) Negative [facility] ([place]) UA reflex comment Reflex to microscopic UA will be performed. [facility] ([place]) Urine 04/20/2025 7:34 PM CDT 04/20/2025 7:37 PM CDT Shahab Sellers MD LAB MICROBIOLOGY - GENERAL O RDERABLES Final Result [facility] ([place]) 1 [facility] [place] [address] * (ABNORMAL) Urinalysis, microscopic only (04/20/2025 7:34 PM CDT) WBC, ur >50(A) 0 - 5 /HPF RBC, ur 3-5(A) 0 - 2 /HPF [facility] ([place]) Epithelial cells, squamous, ur 1-5 0 - 5 /HPF [facility] ([place]) Bacteria, ur 1+(A) [facility] ([place]) Mucous, ur Present(A) [facility] ([place]) Culture Reflex Comment Reflex to urine culture will be performed. [facility] ([place]) Urine 04/20/2025 7:34 PM CDT 04/20/2025 7:37 PM CDT Shahab Sellers MD LAB URINE ORDERABLES Final R esult [facility] ([place]) [address] [facility] [place] [address] * (ABNORMAL) Urine culture Urine (04/20/2025 7:34 PM CDT) Report Final Report: Greater than or equal to 100,000 colonies/mL of Staphylococcus aureus Methicillin susceptible (MSSA) by penicillin binding protein 2a (PBP2a) testing. (.) Comment:Testing performed by : [facility], [address] [place] [address] Organism STAPHYLOCOCCUS AUREUS [facility] ([place]) Urine 04/20/2025 7:34 PM CDT 04/20/2025 10:32 PM CDT Narrative [facility] ([place]) - 04/23/2025 3:07 PM CDT Urine culture reflexed based upon urinalysis results. Testing performed by [facility] ([phone]) Organism Antibiotic Method Susceptibility Staphylococcus aureus Vancomycin INTERPRETATION Susceptible Staphylococcus aureus Trimethoprim with Sulfamethoxazole INTERPRETATION Susceptible Staphylococcus aureus Linezolid INTERPRETATION Susceptible Staphylococcus aureus Doxycycline INTERPRETATION Susceptible Staphylococcus aureus Nitrofurantoin INTERPRETATION Susceptible Staphylococcus aureus Oxacillin INTERPRETATION Susceptible Staphylococcus aureus Cefazolin INTERPRETATION Susceptible Staphylococcus aureus Ceftriaxone INTERPRETATION Susceptible us Shahab Sellers MD LAB MICROBIOLOGY - GENERAL O RDERABLES Final Result Performing Organization Address City/[facility]/ZIP Co de Phone Number [facility] ([place]) 1 [facility] [place] [address] * Magnesium (04/20/2025 7:34 PM CDT) Magnesium 1.7 1.4 - 2.5 mg/dL Blood 04/20/2025 7:34 PM CDT 04/20/2025 7:39 PM CDT us Ernesto Gandhi NP LAB BLOOD ORDERABLES Final Result [facility] ([place]) [address] [facility] [place] [address] * Sepsis Lactate w/ Reflex (04/20/2025 6:52 PM CDT) Sepsis Lactate 1.8 0.7 - 2.0 mmol/L Blood 04/20/2025 6:52 PM CDT 04/20/2025 7:01 PM CDT Shahab Sellers MD LAB BLOOD ORDERABLES Final R esult [facility] ([place]) [address] [facility] [place] [address] * eGFR (04/20/2025 6:52 PM CDT) Pathologist [facility] eGFR >90 >=60 mL/min/1. 73 m2 Comment: Interpretive Data Reference Interval Normal >/= 90 mL/min/1.73m2 Mildly decreased* 60 - 89 mL/min/1.73m2 Mildly to moderately decreased 45 - 59 mL/min/1.73m2 Moderately to severely decreased 30 - 44 mL/min/1.73m2 Severely decreased 15 - 29 mL/min/1.73m2 Kidney Failure < 15 mL/min/1.73m2 *Relative to young adult level Estimated glomerular filtration rate is determined by the 2020 CKD-EPI equation recommended by the National Kidney Foundation (A Unifying Approach to GFR Estimation: Recommendations of the NKF-ASK Task Force on Reassessing the Inclusion of Race in Diagnosing Kidney Disease, JASN 2020). The CKD-EPI equation should not be used for patients with unstable renal function and has not been validated in children and those over 70. Current interpretive data was last reviewed 2021. Blood 04/20/2025 6:52 PM CDT 04/20/2025 7:00 PM CDT Shahab Sellers MD LAB BLOOD ORDERABLES Final R esult [facility] ([place]) [address] [facility] [place] [address] * (ABNORMAL) Differential, auto (04/20/2025 6:52 PM CDT) Neutrophil abs 13.06(H) 1.50 - 6.50 K/cumm Imm gran abs 0.05 0.00 - 0.10 K/cumm [facility] ([place]) Lymphocyte abs 1.97 0.80 - 3.30 K/cumm [facility] ([place]) Monocyte abs 1.22(H) 0.20 - 0.80 K/cumm [facility] ([place]) Eosinophil abs 0.04 0.00 - 0.50 K/cumm [facility] ([place]) Basophil abs 0.05 0.00 - 0.10 K/cumm [facility] ([place]) Neutrophil pct 79.8 % [facility] ([place]) Comment: Interpretive Data Percent cell count reference ranges are not reported, since discordance with absolute values may lead to misinterpretation of CBC data. Current Interpretive Data was last revised on 2018. Imm gran pct 0.3 % [facility] ([place]) Comment: Interpretive Data Percent cell count reference ranges are not reported, since discordance with absolute values may lead to misinterpretation of CBC data. Current Interpretive Data was last revised on 2018. Lymphocyte pct 12.0 % [facility] ([place]) Comment: Interpretive Data Percent cell count reference ranges are not reported, since discordance with absolute values may lead to misinterpretation of CBC data. Current Interpretive Data was last revised on 2018. Monocyte pct 7.4 % [facility] ([place]) Comment: Interpretive Data Percent cell count reference ranges are not reported, since discordance with absolute values may lead to misinterpretation of CBC data. Current Interpretive Data was last revised on 2018. Eosinophil pct 0.2 % [facility] ([place]) Comment: Interpretive Data Percent cell count reference ranges are not reported, since discordance with absolute values may lead to misinterpretation of CBC data. Current Interpretive Data was last revised on 2018. Basophil pct 0.3 % [facility] ([place]) Comment: Interpretive Data Percent cell count reference ranges are not reported, since discordance with absolute values may lead to misinterpretation of CBC data. Current Interpretive Data was last revised on 2018. Blood 04/20/2025 6:52 PM CDT 04/20/2025 7:00 PM CDT Shahab Sellers MD LAB BLOOD ORDERABLES Final R esult [facility] ([place]) 1 [facility] [address] [place] [address] * (ABNORMAL) CBC with auto differential (04/20/2025 6:52 PM CDT) WBC 16.39(H) 3.80 - 9.90 K/cumm Hgb 14.3 11.9 - 15.5 g/dL [facility] ([place]) Hct 40.6 35.6 - 45.5 % [facility] ([place]) Plt 225 150 - 400 K/cumm [facility] ([place]) MPV 10.2 9.1 - 12.3 fL [facility] ([place]) RBC 4.72 3.90 - 5.20 M/cumm [facility] ([place]) MCV 86.0 81.3 - 96.4 fL [facility] ([place]) MCH 30.3 27.1 - 33.3 pg [facility] ([place]) MCHC 35.2 32.3 - 35.7 g/dL [facility] ([place]) RDW CV 12.4 11.1 - 14.9 % [facility] ([place]) RDW SD 38.7 35.7 - 48.1 fL [facility] ([place]) NRBC abs 0.00 0.00 - 0.01 K/cumm [facility] ([place]) Blood 04/20/2025 6:52 PM CDT 04/20/2025 7:00 PM CDT Shahab Sellers MD LAB BLOOD ORDERABLES Final R esult [facility] ([place]) [address] [facility] [place] [address] * Blood culture Blood Peripheral (04/20/2025 6:52 PM CDT) Report Final Report: No growth Comment:Testing performed by : [facility], [address] [place]., [address] Blood (Peripheral) 04/20/2025 6:52 PM CDT 04/20/2025 10:20 PM CDT Narrative [facility] ([place]) - 04/25/2025 7:01 AM CDT From a different site than #1. Draw Blood cultures before administration of Antibiotics Collection->Peripheral 1. Blood cultures are incubated for 4 days on a continuously monitored blood culture system. The first report of a negative culture is issued within 24 hours of receipt of the specimen in the laboratory. 2. Positive culture results are reported as soon as they are detected. 3. The most important factor for detection of microbes in the setting of bloodstream infection is the volume of blood submitted for culture. Failure to collect an optimal blood volume can result in false negative blood cultures. 4. For pediatric patients, the recommended blood volume to collect follows a weight based strategy. See the electronic test catalog for collection instructions. 5. For positive blood cultures, a rapid molecular test may be performed for organism identification using the liam ePlex blood culture identification panel for gram positive (BCID-GP) and gram negative (BCID-GN) organisms. This nucleic acid amplification test detects microbial DNA in positive blood culture broth. This assay has been cleared by the [place] Food and Drug Administration and its performance characteristics have been verified by the [facility] Microbiology Laboratory. For questions about this culture, contact the Microbiology Laboratory at [phone]. Interpretive data was last revised on 24. us Shahab Sellers MD LAB MICROBIOLOGY - GENERAL O RDERABLES Final Result [facility] ([place]) 1 [facility] Department [place] [address] * Blood culture Blood Peripheral (04/20/2025 6:52 PM CDT) Report Final Report: No growth Comment:Testing performed by : [facility], [address] [facility], [place]., [address] Blood (Peripheral) 04/20/2025 6:52 PM CDT 04/20/2025 10:20 PM CDT Narrative [facility] ([place]) - 04/25/2025 7:01 AM CDT Draw Blood cultures before administration of Antibiotics Collection->Peripheral 1. Blood cultures are incubated for 4 days on a continuously monitored blood culture system. The first report of a negative culture is issued within 24 hours of receipt of the specimen in the laboratory. 2. Positive culture results are reported as soon as they are detected. 3. The most important factor for detection of microbes in the setting of bloodstream infection is the volume of blood submitted for culture. Failure to collect an optimal blood volume can result in false negative blood cultures. 4. For pediatric patients, the recommended blood volume to collect follows a weight based strategy. See the electronic test catalog for collection instructions. 5. For positive blood cultures, a rapid molecular test may be performed for organism identification using the liam ePlex blood culture identification panel for gram positive (BCID-GP) and gram negative (BCID-GN) organisms. This nucleic acid amplification test detects microbial DNA in positive blood culture broth. This assay has been cleared by the [place] Food and Drug Administration and its performance characteristics have been verified by the [facility]biology Laboratory. For questions about this culture, contact the Microbiology Laboratory at [phone]. Interpretive data was last revised on 24. Shahab Sellers MD LAB MICROBIOLOGY - GENERAL O RDERABLES Final Result [facility] ([place]) 1 [facility] Department [place] [address] * (ABNORMAL) Hemoglobin A1c (04/20/2025 6:52 PM CDT) Hgb A1C 10.0(H) 4.0 - 5.6 % Estimated Average Glucose 240 mg/dL [facility] ([place]) Comment: The ADA recommends reporting an estimated Average Glucose (eAG) with all Hemoglobin A1c results using the equation derived from a study of 507 normal and diabetic adults. Minority populations were underrepresented and children were not included. (Diabetes Care 31:0442-3141, 2008). The eAG is not equivalent to a fasting glucose. Blood 04/20/2025 6:52 PM CDT 04/20/2025 10:47 PM CDT Ernesto Gandhi NP LAB BLOOD ORDERABLES Final Result [facility] ([place]) 1 [facility] [place] [address] * (ABNORMAL) Comprehensive metabolic panel (04/20/2025 6:52 PM CDT) Sodium 131(L) 135 - 145 mmol/L Potassium, pl 3.8 3.3 - 4.9 mmol/L [facility] ([place]) Chloride 92(L) 97 - 110 mmol/L [facility] ([place]) CO2 24 22 - 32 mmol/L [facility] ([place]) Anion gap 16(H) 2 - 15 mmol/L [facility] ([place]) BUN 8 6 - 25 mg/dL [facility] ([place]) Creatinine 0.55(L) 0.60 - 1.10 mg/dL [facility] ([place]) Glucose 380(H) 70 - 199 mg/dL [facility] ([place]) Comment: Interpretive Data Fasting glucose >/= 126 mg/dl is diagnostic for diabetes. Fasting is defined as no caloric intake for at least 8 hours. Fasting glucose between 100 mg/dl to 125 mg/dl is diagnostic of prediabetes. In a patient with classic symptoms of hyperglycemia or hyperglycemic crisis, a random glucose >/= 200 mg/dl is diagnostic for diabetes. In the absence of unequivocal hyperglycemia, results should be confirmed by repeat testing. The classification and Diagnosis of Diabetes Diabetes Care 2021; 46: S19-S40. Current interpretive data was last revised 2022. Calcium 9.8 8.5 - 10.3 mg/dL [facility] ([place]) Bilirubin, total 0.9 0.1 - 1.2 mg/dL [facility] ([place]) Protein, pl 7.2 6.5 - 8.5 g/dL [facility] ([place]) Albumin 4.0 3.5 - 5.0 g/dL [facility] ([place]) Alk phos 100 40 - 130 Units/L [facility] ([place]) ALT 20 7 - 45 Units/L [facility] ([place]) AST 12 10 - 45 Units/L [facility] ([place]) Blood 04/20/2025 6:52 PM CDT 04/20/2025 7:00 PM CDT us Shahab Sellers MD LAB BLOOD ORDERABLES Final R esult [facility] ([place]) 1 [facility] [place] [address] from Last 3 Months Advance Directives For more information, please contact: [phone] * Full Code (Latest Code Status on File) Date Activated Date Inactivated Comments 04/25/2025 11:37 PM 04/27/2025 3:10 PM * Full Code Date Activated Date Inactivated Comments 04/20/2025 10:48 PM 04/22/2025 8:56 PM Care Teams Organizational Consultant Relationship Specialty Start Date End Date No, Physician PCP - General 04/20/25
--- OUTSIDE RECORDS SUMMARY | 2025-07-12 10:09 | XMS_ITS | Encounter Summary ---
Author Organization [facility] Address [address] [place] [address] Care Team Providers Care Ict Project Manager Name Role Phone Hermelindo Manning MD Unavailable Naty Guerrier PA-C Primary Care Provider Naty Guerrier PA-C Primary Care Provider Reason for Visit * Reason Comments Refill Request Encounter Details Date Type Department Care Team (Late st Contact Info) Description 03/27/2024 Refill [facility] - Family Medicine [facility] [facility] [place] [address] Naty Guerrier PA-C [address] [facility] [address] [place] [address] Refill Request Social History Tobacco [...] Recorded Patient Health Questionnaire-2 Score 2 12/27/2023 Comments No Sex and Gender Information Value Date Recorded Sex Assigned at Not on file Legal Sex Female 9:49 AM CDT Gender Identity Not on file Sexual Orientation Not on file documented as of this encounter Miscellaneous Notes * Telephone Encounter - Natty Tavarez - 03/27/2024 11:47 AM CDT Patsy Milan Requested Prescriptions Pending Prescriptions Disp Refills busPIRone [...] disorder documented in this encounter Care Teams Ict Project Manager Relationship Specialty Start Date End Date Naty Guerrier PA-C [address] [address] PCP - General Physician [employer] 12/27/23 02/11/25 Naty Guerrier PA-C [address] [place] [address] [address] [place] [id number] PCP - General 03/12/25 Hermelindo Manning MD [address] [facility] [address] [place] [address] Internal Medicine 08/03/19 documented as of this encounter
--- OUTSIDE RECORDS SUMMARY | 2025-07-12 10:09 | XMS_ITS | Clinical Summary ---
Author Organization [facility] Address [address] [place] [address] Care Team Providers Care Bilingual Customer Service Name Role Phone Hermelindo Manning MD Unavailable [phone] Naty Guerrier PA-C Primary Care Provider [phone] Source Comments [facility],non-owned Affiliates and Associated Physician Practices is amultiple site organization consisting of ambulatory clinics and hospital sitesin [place], [place], [place] and [place]. This disclosure is being madepursuant to the Care Everywhere program and may not contain all information available regarding this patient. Last updated 18.[facility] Allergies Active Allergy Reactions Criticality Noted Date Comments Codeine Itching Low 07/01/2014 Contrast-Iodinated Agents For Ct/Other Rash Medium 08/03/2019 Morphine Rash Medium 08/03/2019 Medications * Be aware that medications may not be up to date on this document. Alwaysverify current medications with the patient. semaglutide (Rybelsus) 7 MG tabletIndications :Type 2 diabetes mellitus without complication, without long-term current use of insulin (HCC) Take 1 (one) tablet by mouth once daily Take with a sip of water (< 4 oz) at least 30 minutes before any food, drink, or other meds. 90 tablet 4 Active lisinopril (Prinivil; Zestril) 20 MG tablet TAKE 1 TABLET BY MOUTH EVERY DAY 30 tablet 5 Active hydroCHLOROthiazi de (Microzide) 12.5 MG capsuleIndication s:Primary hypertension TAKE 1 CAPSULE BY MOUTH EVERY DAY 30 capsule 5 Active metoprolol succinate XL 24hr (Toprol XL) 25 MG tabletIndications :Primary hypertension TAKE 1 TABLET BY MOUTH EVERY DAY 90 tablet 3 5 Active amLODIPine (Norvasc) 10 MG tabletIndications :Primary hypertension TAKE 1 TABLET BY MOUTH EVERY DAY 90 tablet 3 5 Active Active Problems Problem Noted Date Diagnosed Date Type 2 diabetes mellitus wit hout complication, without long-term current use of insulin 12/27/2023 Primary hypertension 12/22/2022 Assessment & Plan (12/22/2022 11:02 PM CEMENT MIXER DRIVER): Hypertension is a main issue for the [...] 12/22/2022 Assessment & Plan (12/22/2022 11:03 PM CEMENT MIXER DRIVER): Check TSH, lipid profile Immunizations Immunization Administration Dates Next Due TDAP, HISTORIC VACCINE [...] Recorded Patient Health Questionnaire-2 Score 1 06/13/2024 Comments No Sex and Gender Information Value Date Recorded Sex Assigned at Not on file Legal Sex Female 9:49 AM CDT Gender Identity Not on file Sexual Orientation Not on file Last Filed Vital Signs Vital Sign Reading Time Taken Comments Blood Pressure 122/81 06/13/2024 3:11 PM CDT Pulse 96 06/13/2024 3:11 PM CDT Temperature 36.3 C (97.4 F) 06/13/2024 1:30 PM CDT Respiratory Rate 16 10/04/2022 7:58 PM CEMENT MIXER DRIVER Oxygen Saturation 100% 06/13/2024 1:30 PM CDT Inhaled Oxygen Concentration - - Weight 92.1 kg (203 lb 0.7 oz) 07/12/2024 10:29 AM CDT Height 162.6 cm (5' 4.02) 07/12/2024 10:29 AM C DT Body Mass Index 34.83 07/12/2024 10:29 AM CDT Plan of Treatment Health Maintenance Due Date Last Done Comments HEPATITIS C SCREENING 07/07/1998 HEPATITIS B VACCINE (1 of 3 - 19+ 3-dose series) 1999 PNEUMOCOCCAL VACCINE (1 of 2 - PCV) 1999 HPV VACCINE (1 - 3-dose SCDM series) 2007 DIABETES-STATIN 2020 DIABETES-SERUM CREATININE 10/04/2023 10/04/2022 DIABETES RETINOPATHY SCREENING 12/27/2023 DIABETES-FOOT EXAM WITH MONOFILAMENT 12/27/2023 DIABETES-HGB A1C 12/27/2023 DEPRESSION SCREENING 11/06/2024 12/27/2023 DIABETES - URINE PROTEIN SCREENING 11/06/2024 COVID-19 VACCINE (1 - 2023-2 5 season) 2025 INFLUENZA VACCINE (#1) 2025 MAMMOGRAM 07/12/2026 07/12/2024 DTAP/TDAP/TD VACCINES (2 - T d or Tdap) 10/23/2027 10/23/2017 ZOSTER VACCINE (1 of 2) 2030 HIB VACCINE Aged Out No longer eligi ble based on patient's age to complete this topic HIV SCREENING Discontinued MENINGOCOCCAL (Group B) VACC INE SHARED DECISION-MAKING Aged Out No longer eligibl e based on patient's age to complete this topic MENINGOCOCCAL GROUPS A/C/Y/W VACCINE Aged Out No longer eligible b ased on patient's age to complete this topic Procedures Procedure Name Priority Date/Time Associated Diagnosis Comments MAMMO BILAT SCREENING W MYRTLE Routine 07/12/2024 10:54 AM CDT Breast cancer screening by mammogram COMPREHENSIVE METABOLIC PANEL STAT 10/04/2022 2:43 PM CEMENT MIXER DRIVER from Last 3 Months or Most Recently [...] MLO view. 3. Negative right mammogram. RECOMMENDATION: Diagnostic left mammogram. If indicated at that time, left breast ultrasound will be performed. Patient will be contacted and scheduled to return for the additional imaging. OVERALL ASSESSMENT: BI-RADS CATEGORY 0: INCOMPLETE: NEED ADDITIONAL IMAGING EVALUATION. Report dictated by John Hayes M.D. (sales consultant residential manager) 07/12/2024 11:07 AM IBrianna MD have personally reviewed and interpreted this examination/study. > Interpreting Provider: Brianna Stanley MD on 07/12/2024 12:54 PM Narrative 07/12/2024 12:54 PM CDT EXAMINATIONS: BILATERAL DIGITAL SCREENING MAMMOGRAM AND BILATERAL BREAST TOMOSYNTHESIS LOCATION: [facility] EXAM DATE: 07/12/2024 HISTORY: Baseline screening mammogram. Family history of breast cancer in her maternal grandmother at age 70. RISK ASSESSMENT CALCULATION: Patient completed a breast cancer risk assessment during her appointment 07/12/2024. Based upon the information she provided and her mammographic breast density, her lifetime risk of developing breast cancer is 13% (Average Risk <15%; Intermediate / Moderate Risk 15-19; High Risk > 20%). Risk assessment based upon the BRCAPRO model. COMPARISON: None. This is a baseline exam. TECHNIQUE: Tomosynthesis (3D) and reconstructed synthetic 2-D images acquired and reviewed in the bilateral craniocaudal and mediolateral oblique projections. A total of 4 images obtained. Transpara AI was utilized in the interpretation. BREAST PARENCHYMAL COMPOSITION: Category B: There are scattered areas of fibroglandular density. FINDINGS: Right breast: No suspicious findings or evidence of malignancy. Left breast: Possible asymmetry in the medial mid depth breast, 4 cm from the nipple on the craniocaudal view. Asymmetry in the superior posterior breast on the MLO view, 15 cm from the nipple, which may represent a lymph node. us Naty Guerrier PA-C MAMMO ORDERABLES Final Resu lt * (ABNORMAL) COMPREHENSIVE METABOLIC PANEL (10/04/2022 2:43 PM CEMENT MIXER DRIVER) BUN 12 7 - 26 mg/dL 10/04/2022 3:25 PM [facility] Creatinine 0.54(L) 0.56 - 0.96 mg/dL 10/04/2022 3:25 PM [facility] Sodium 137 136 - 145 mmol/L 10/04/2022 3:25 PM [facility] Potassium 4.1 3.5 - 4.5 mmol/L 10/04/2022 3:25 PM [facility] Chloride 104 98 - 107 mmol/L 10/04/2022 3:25 PM [facility] CO2 19(L) 22 - 29 mmol/L 10/04/2022 3:25 PM [facility] Glucose 277(H) 70 - 115 mg/dL 10/04/2022 3:25 PM [facility] Calcium 10.1 8.4 - 10.2 mg/dL 10/04/2022 3:25 PM [facility] Protein Total 7.5 6.0 - 8.3 g/dL 10/04/2022 3:25 PM [facility] Albumin 4.3 3.4 - 5.0 g/dL 10/04/2022 3:25 PM [facility] Bilirubin Total 1.0 0.2 - 1.2 mg/dL 10/04/2022 3:25 PM [facility] Alkaline Phosphatase 72 40 - 150 U/L 10/04/2022 3:25 PM [facility] ALT 38 5 - 55 U/L 10/04/2022 3:25 PM [facility] AST 24 5 - 34 U/L 10/04/2022 3:25 PM [facility] Anion Gap 18 8 - 18 10/04/2022 3:25 PM [facility] BUN/Creatinine Ratio 22 7 - 23 10/04/2022 3:25 PM [facility] Osmolality Calculated 294 270 - 300 mOsm/kg 10/04/2022 3:25 PM [facility] Albumin/Globulin Ratio 1.3 1.1 - 2.3 10/04/2022 3:25 PM [facility] eGFR by CKD-EPI >90 >=90 mL/min/1.7 3 m2 10/04/2022 3:25 PM [facility] Blood BLOOD SPECIMEN / Unknown Venipuncture / Unknown 10/04/2022 2:43 PM CEMENT MIXER DRIVER 10/04/2022 2:52 PM [facility] us Charlene Waggoner KOSHER DIETARY SERVICE SUPERVISOR-BUFFING WHEEL INSPECTOR LAB - CHEMISTRY ORDERA BLES Final Result [facility] [address] [place] [address], [place] [phone] from Last 3 Months or Most Recently Relevant to Health Maintenance Insurance [facility] Care Teams Bilingual Customer Service Relationship Specialty Start Date End Date Naty Guerrier PAStephanieC [address] [facility] [address] [place] [address] PCP - General 03/12/25 Hermelindo Manning MD [address] [facility] [address] [place] [address] Internal Medicine 08/03/19
[2025-07-12 10:12] VITALS: BP 150/78; PULSE 98; RESP 17; TEMP 36.3; O2SAT 100
--- NOTE | 2025-07-12 11:01 | ED.GENADULT ---
HPI - General Adult General Chief complaint: Neck Pain/Injury Stated complaint: right neck and shoulder pain Time Seen by Provider: 07/12/25 10:39 History of Present Illness HPI narrative: Patient 45-year-old female presents emergency department chief complaint of right-sided neck pain. Patient reports that for several months she has been having pain on the right side of her neck that radiates down her right arm patient does report that she had some tingling in the arm it has been ongoing for at least 2 months the patient states the symptoms are worse whenever she tries to move the arm reports that it causes a pain that radiates from her neck down to her fingertips the patient reports that she has had no new trauma did report that early in the summer her dog yanked her arm forcefully and that appears to be the start of symptoms. Patient also reports recently she went to [facility] that she became more sore afterwards. Related Data Home Medications ?Medication ?Instructions ?Recorded ?Confirmed ?Last Taken ?Type amlodipine 10 mg tablet 10 mg PO HS 12/04/20 05/07/25 12/08/20 History metoprolol tartrate 25 mg tablet 25 mg PO DAILY 09/23/24 05/07/25 Unknown History Allergies Allergy/AdvReac Type Severity Reaction Status Date / Time morphine Allergy Severe Rash Verified 07/12/25 10:21 iodine Allergy Intermediate Hives Verified 07/12/25 10:21 codeine Allergy Mild nausea & Verified 07/12/25 10:21 vomiting Review of Systems Review of Systems: A 10 system review of systems was completed on the patient and is negative except for what is stated in the HPI. Nursing and ancillary documentation was reviewed. PMF Past Medical History Medical History Obesity Diabetes Hypertension Surgical History Surgical History H/O: hysterectomy Previous section Family History Family History Father Alcoholism in family member Hypertension Depression Anxiety Cancer Mother Diabetes mellitus Grandparent Alcoholism in family member Diabetes mellitus Heart disease Thyroid disorder Cerebrovascular accident Cancer Grandparent Cancer Social History Social History Social History: Caffeine: Coffee and tea 1-2 cups daily Smoking status: Never smoker Smoking end date: 11/06/99 Additional smoking assessment comments: smoked 4 years Alcohol intake: never Substance use: never Substance use type: does not use Do You Feel Safe in your Home?: Yes Lack of Transportation: No Lack of Food: Never True Current Housing: I Have Housing Concerned About Future Housing: No Difficulty Paying Gas/Electric Bills: No Difficulty Paying for Meds: No Currently Unemployed: No Education: High School Diploma/GED Difficulty w/ Childcare or Family Care: No Living arrangements: with family Occupation/Education: occupation Gender identity (if verbalized by the patient): Female Sexual Orientation (if Verbalized by the Patient): Straight or Heterosexual Spiritual care concerns: No Agree to blood products: Yes Exam Narrative: GENERAL: Well-appearing, well-nourished, and in no acute distress. HEAD: Normocephalic, atraumatic. EYES: PERRLA and EOMI. ENT: Nares clear, no rhinorrhea or epistaxis. Mucous membranes moist. NECK: Supple. Tenderness to paraspinous muscles on the right side of the neck CHEST: Clear to auscultation. No respiratory distress. HEART: Regular rate and rhythm. No murmur heard. Normal peripheral pulses. ABDOMEN: Soft, nontender, nondistended, normal active bowel sounds. EXTREMITIES: Normal range of motion. No edema. SKIN: Warm, dry, no rash. NEURO: No focal deficits. Alert and oriented x3. PSYCH: Normal mood and affect. Course Vital Signs Vital signs: Vital Signs Temperature 36.3 C L 07/12/25 10:12 Pulse Rate 98 07/12/25 10:12 Respiratory Rate 17 07/12/25 10:12 Blood Pressure 150/78 H 07/12/25 10:12 Pulse Oximetry 100 07/12/25 10:12 Oxygen Delivery Room Air 07/12/25 10:12 Temperature 36.3 C L 07/12/25 10:12 Pulse Rate 98 07/12/25 10:12 Respiratory Rate 17 07/12/25 10:12 Blood Pressure 150/78 H 07/12/25 10:12 Pulse Oximetry 100 07/12/25 10:12 Oxygen Delivery Room Air 07/12/25 10:12 Medical Decision Making Vital Signs Vital Signs: Vital Signs Temperature 36.3 C L 07/12/25 10:12 Pulse Rate 98 07/12/25 10:12 Respiratory Rate 17 07/12/25 10:12 Blood Pressure 150/78 H 07/12/25 10:12 Pulse Oximetry 100 07/12/25 10:12 Oxygen Delivery Room Air 07/12/25 10:12 Temperature 36.3 C L 07/12/25 10:12 Pulse Rate 98 07/12/25 10:12 Respiratory Rate 17 07/12/25 10:12 Blood Pressure 150/78 H 07/12/25 10:12 Pulse Oximetry 100 07/12/25 10:12 Oxygen Delivery Room Air 07/12/25 10:12 Discharge Plan Discharge Clinical Impression: Cervical radiculopathy Patient Disposition: Home Condition: Stable Instructions: Antibiotic Form, Cervical Radiculopathy (ED) Patient Language: Indonesian Prescriptions: New cyclobenzaprine 10 mg tablet 10 mg PO TID PRN (Reason: muscle spasm) Qty: 21 0RF prednisone 20 mg tablet 40 mg PO DAILY 5 Days Qty: 10 0RF lidocaine [Lidoderm] 5 % adhesive patch,medicated 1 patch topical DAILY Qty: 15 0RF Rx Instructions: leave on most painful area for up to 12 hrs diclofenac potassium 50 mg tablet 50 mg PO TID PRN (Reason: pain) Qty: 30 0RF No Action metoprolol tartrate 25 mg tablet 25 mg PO DAILY (DME) lancets 31 gauge misc See Rx Instructions .ROUTE .MEDSUPPLY Qty: 100 0RF Rx Instructions: To check glucose three times daily (DME) Blood Glucose Test Strip See Rx Instructions .ROUTE .MEDSUPPLY Qty: 50 1RF Rx Instructions: To check glucose 3 times daily. (DME) blood-glucose meter Misc See Rx Instructions .ROUTE .MEDSUPPLY Qty: 1 0RF Rx Instructions: To check glucose three times daily duloxetine 30 mg capsule,delayed release(DR/EC) 30 mg PO DAILY Qty: 90 0RF ketorolac 10 mg tablet 10 mg PO Q8H PRN (Reason: pain) Qty: 10 0RF Rx Instructions: maximum total duration of 5 days from all oral, intranasal, or parenteral formulations methocarbamol 750 mg tablet 750 mg PO QHS Qty: 20 0RF amlodipine 10 mg tablet 10 mg PO HS lisinopril 20 mg tablet See Rx Instructions .ROUTE .COMPLEX Qty: 90 0RF Dose Instruction: TAKE 1 TABLET BY MOUTH EVERY DAY Rx Instructions: TAKE 1 TABLET BY MOUTH EVERY DAY alprazolam [Xanax] 0.25 mg tablet 0.25 mg PO DAILY PRN (Reason: anxiety) Qty: 10 0RF Rx Instructions: Do not take while driving. May cause drowsiness. (DME) BD SafetyGlide Insulin Syringe 0.3 mL 31 gauge x 5/16 syringe See Rx Instructions .Route Qty: 100 1RF Rx Instructions: To inject insulin insulin glargine [Basaglar KwikPen U-100 Insulin] 100 unit/mL (3 mL) insulin pen 30 unit subcut QAM Qty: 15 1RF insulin lispro [Humalog U-100 Insulin] 100 unit/mL solution 1 sliding scale dose subcut USEASDIRECTD MDD 40U Qty: 3 3RF Rx Instructions: Inject 7 units TID with meals. In addition for BG readings between 150-199 (1 unit), 200-249 (2 units), 250-299 (3 units), 300-349 (4 units), 350-399 (5 units). Blood glucose readings over 400, please notify the office immediately. Follow-up/Referrals: Eliceo Roman M.D. [Physician, Neurosurgery] Kirby Luna DO [Primary Care Provider, Internal Medicine] Time of Disposition: 12:02
[2025-07-12] MEDS: dexAMETHasone SOD PHOS INJ 10 MG/ML 1 ML VIAL IM (11:20)
[2025-07-12] MEDS: KETOROLAC 30 MG/ML VIAL (*BKC) IM (11:20)
[2025-07-12] MEDS: ORPHENADRINE CITRATE 100 MG TABLET.ER PO (11:20)
== END 2025-07-12 12:36 | disposition home or self-care (01) ==
PROVIDERS: Emergency Provider Emergency Medicine; PCP Internal Medicine
DX: M47.22 Other spondylosis with radiculopathy, cervical region (principal); I10 Essential (primary) hypertension; E11.9 Type 2 diabetes mellitus without complications; Z87.891 Personal history of nicotine dependence; Z90.710 Acquired absence of both cervix and uterus; M48.02 Spinal stenosis, cervical region; M19.011 Primary osteoarthritis, right shoulder; Z79.4 Long term (current) use of insulin; Z79.899 Other long term (current) drug therapy
CPT/HCPCS: 72125; 73030; 96372; 99284; A9270; J1100; J1885

== ENCOUNTER 2025-09-12 09:47 | Outpatient (CLI) | payer MEDICAID, SELFPAY ==
--- OUTSIDE RECORDS SUMMARY | 2025-09-12 10:30 | XMS_ITS | Clinical Summary ---
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 Name Role Phone No, Physician Primary Care Provider [phone] Allergies Active Allergy Reactions Criticality Noted Date [...] injection Inject 30 Units under the skin edi consultant before breakfast 9 mL 5 Active pen [...] Active pen needle, diabetic 32 gauge x 5/32 needle Use as directed 3 times a [...] type 0 04/25/2025 Cellulitis, gluteal, left 04/20/2025 Immunizations Immunization Administration Dates Next Due Tdap 04/20/2025 Social History Tobacco Use Types Packs/Day Years Used Date Smoking Tobacco: Never Smokeless Tobacco: Never Tobacco Cessation:Counseling Given: Not Answered [facility] Utilities Answer Date Recorded In the past 12 months has [employer], gas, oil, or water [employer] threatened to shut off services in your [...] week 04/22/2025 How often do you attend [facility] or jain services? Never 04/22/2025 Do you belong to any clubs o r organizations such as latter day groups, unions, fraternal or athletic groups, or [...] time in the past 12 m [facility], were you homeless or living in a long term (including now)? No 04/22/2025 Personal Safety Answer [...] Hemoglobin A1C 10/20/2025 04/20/2025 eGFR 04/27/2026 04/27/2025, 04/07, 04/25/2025, Additional history exists DTaP/Tdap/Td Vaccine (3 - Td or Tdap) 04/20/2035 04/20/2025, 10/23/2017 Procedures Procedure Name Priority Date/Time Associated Diagnosis Comments EGFR Routine 04/27/2025 7:08 AM CDT HEMOGLOBIN A1C Routine 04/20/2025 6:52 PM CDT from Last 3 Months or Most Recently Relevant to Health Maintenance Results * eGFR (04/27/2025 7:08 AM CDT) eGFR [...] ORDERABLES Fi nal Result Performing Organization Address City/[facility]/ZIP Co de Phone Number CEZAR FENG (SWEETSER) [address] [facility] [place] [address] * (ABNORMAL) Hemoglobin A1c (04/20/2025 6:52 PM CDT) Hgb A1C 10.0(H) 4.0 - 5.6 % Estimated Average Glucose 240 mg/dL CEZAR FENG (SWEETSER) Comment: The ADA recommends reporting an estimated Average Glucose (eAG) with all Hemoglobin A1c results using the equation derived from a study of 507 normal and diabetic adults. Minority populations were underrepresented and children were not included. (Diabetes Care 31:2671-3518, 2008). The eAG is not equivalent to a fasting glucose. Blood 04/20/2025 6:52 PM CDT 04/20/2025 10:47 PM CDT us Ernesto Gandhi NP LAB BLOOD ORDERABLES Final Result CEZAR FENG (SWEETSER) [address] [facility] [place] [place], [place] [id number] from Last 3 Months or Most Recently Relevant to Health Maintenance Advance Directives For more information, please contact: [phone] * Full Code (Latest Code Status on File) Date Activated Date Inactivated Comments 04/25/2025 11:37 PM 04/27/2025 3:10 PM * Full Code Date Activated Date Inactivated Comments 04/20/2025 10:48 PM 04/22/2025 8:56 PM Care Teams Logging Equipment Operator Relationship Specialty Start Date End Date No, Physician PCP - General 04/20/25
--- OUTSIDE RECORDS SUMMARY | 2025-09-12 10:31 | XMS_ITS | Clinical Summary ---
Author Organization [facility] Address [address] [place] [address] Care Team Providers Care Recovery Engineer Name Role Phone Hermelindo Manning MD Unavailable [phone] Piper Mosley APRN-STATION CAPTAIN Primary Care Provider [phone] Source Comments [facility],non-owned Affiliates and Associated Physician Practices is amultiple site organization consisting of ambulatory clinics and hospital sitesin [place], [place], [place] and [place]. This disclosure is being madepursuant to the Care Everywhere program and may not contain all information available regarding this patient. Last updated 18.[facility] Allergies Active Allergy Reactions Criticality Noted Date Comments Codeine Itching Low 07/01/2014 Contrast-Iodinated Agents For Ct/Other Rash Medium 08/03/2019 Morphine Rash Medium 08/03/2019 Medications * Be aware that medications may not be up to date on this document. Alwaysverify current medications with the patient. semaglutide (Rybelsus) 7 MG tabletIndication s:Type 2 diabetes mellitus without complication, without long-term current use of insulin (HCC) Take 1 (one) tablet by mouth once daily Take with a sip of water (< 4 oz) at least 30 minutes before any food, drink, or other meds. 90 tablet 09/17/20 24 Active lisinopril (Prinivil; Zestril) 20 MG tablet TAKE 1 TABLET BY MOUTH EVERY DAY 30 tablet 12/31/19 25 Active hydroCHLOROthiaz roxanna (Microzide) 12.5 MG capsuleIndicatio ns:Primary hypertension TAKE 1 CAPSULE BY MOUTH EVERY DAY 30 capsule 12/31/19 25 Active metoprolol succinate XL 24hr (Toprol XL) 25 MG tabletIndication s:Primary hypertension TAKE 1 TABLET BY MOUTH EVERY DAY 90 tablet 3 02/04/20 25 Active amLODIPine (Norvasc) 10 MG tabletIndication s:Primary hypertension TAKE 1 TABLET BY MOUTH EVERY DAY 90 tablet 3 02/04/20 25 Active Lantus vial Inject 30 (thirty) Units subcutaneously every 24 hours 07/18/20 25 Active insulin lispro (HumaLOG;ADMelog ) 100 UNIT/ML pen INJECT 7 UNITS THREE TIMES DAILY WITH MEALS. MAX OF 12 UNITS THREE TIMES DAILY WITH MEALS FOLLOWING SLIDING SCALE INSTRUCTIONS Active oxyCODONE, immediate release, (Roxicodone) 10 MG tabletIndication s:Numbness and tingling of right arm,Cervical stenosis of spine Take 1 (one) tablet by mouth every 4 hours as needed 24 tablet 07/29/20 25 Active lidocaine (Lidoderm) 5 % patch Apply 2 (two) patches to skin once daily Apply patch to most painful area and remove after 12 hours. May reapply a new patch 12 hours later. 28 patch 07/29/20 25 Active methocarbamol (Robaxin) 750 MG tablet Take 1 (one) tablet by mouth every 6 hours as needed for Muscle Spasms 90 tablet 08/13/20 25 Active gabapentin (Neurontin) 600 MG tablet Take 1 (one) tablet by mouth 3 times daily 90 tablet 1 08/13/20 25 Active Active Problems Problem Noted Date Diagnosed Date Neck pain 07/28/2025 Assessment & Plan (07/29/2025 9:47 AM CDT): CT cervical spine shows- 1. Multilevel degenerative disc disease with right paramedian and median posterior disc protrusion predominantly most prominent at the levels C4-7 causing up to severe multilevel central canal stenosis.varying degrees of up to severe neural foraminal stenosis 2. No acute fracture of the cervical spine. X-ray right shoulder-no abnormality detected Order MRI cervical spine Started on oxycodone and IV Dilaudid, lidocaine patch Ortho recs appreciated MRI cervical spine showing right paracentral disc bulge at C4-5, central disc bulge at C5-6 and right paracentral disc bulge at C6-7 all resulting in moderate to severe stenosis, especially on right and c/f chronic myelomalacia. No acute surgical spine intervention this admission, per ortho, but likely OP elective surg. Activity: as tolerated DVT ppx: okay from a spine standpoint Follow up scheduled with Dr. Cramer 08/19. Assessment & Plan (07/28/2025 5:56 PM CDT): CT cervical spine shows- 1. Multilevel degenerative disc disease with right paramedian and median posterior disc protrusion predominantly most prominent at the levels C4-7 causing up to severe multilevel central canal stenosis.varying degrees of up to severe neural foraminal stenosis 2. No acute fracture of the cervical spine. X-ray right shoulder-no abnormality detected Order MRI cervical spine Started on oxycodone and IV Dilaudid, lidocaine patch Ortho recs appreciated MRI cervical spine showing right paracentral disc bulge at C4-5, central disc bulge at C5-6 and right paracentral disc bulge at C6-7 all resulting in moderate stenosis, no cord signal changes. No acute surgical spine intervention warranted this admission Activity: as tolerated DVT ppx: okay from a spine standpoint Follow up scheduled with Dr. Cramer in 2 weeks to discuss outpatient surgery Right arm pain 07/28/2025 Assessment & Plan (07/29/2025 9:47 AM CDT): CT cervical spine shows- 1. Multilevel degenerative disc disease with right paramedian and median posterior disc protrusion predominantly most prominent at the levels C4-7 causing up to severe multilevel central canal stenosis.varying degrees of up to severe neural foraminal stenosis 2. No acute fracture of the cervical spine. X-ray right shoulder-no abnormality detected Order MRI cervical spine Started on oxycodone and IV Dilaudid, lidocaine patch Ortho recs appreciated MRI cervical spine showing right paracentral disc bulge at C4-5, central disc bulge at C5-6 and right paracentral disc bulge at C6-7 all resulting in moderate to severe stenosis, especially on right and c/f chronic myelomalacia. No acute surgical spine intervention this admission, per ortho, but likely OP elective surg. Activity: as tolerated DVT ppx: okay from a spine standpoint Follow up scheduled with Dr. Cramer 08/19. Assessment & Plan (07/28/2025 5:56 PM CDT): CT cervical spine shows- 1. Multilevel degenerative disc disease with right paramedian and median posterior disc protrusion predominantly most prominent at the levels C4-7 causing up to severe multilevel central canal stenosis.varying degrees of up to severe neural foraminal stenosis 2. No acute fracture of the cervical spine. X-ray right shoulder-no abnormality detected Order MRI cervical spine Started on oxycodone and IV Dilaudid, lidocaine patch Ortho recs appreciated MRI cervical spine showing right paracentral disc bulge at C4-5, central disc bulge at C5-6 and right paracentral disc bulge at C6-7 all resulting in moderate stenosis, no cord signal changes. No acute surgical spine intervention warranted this admission Activity: as tolerated DVT ppx: okay from a spine standpoint Follow up scheduled with Dr. Cramer in 2 weeks to discuss outpatient surgery Numbness and tingling of right arm 07/28/2025 Assessment & Plan (07/29/2025 9:47 AM CDT): CT cervical spine shows- 1. Multilevel degenerative disc disease with right paramedian and median posterior disc protrusion predominantly most prominent at the levels C4-7 causing up to severe multilevel central canal stenosis.varying degrees of up to severe neural foraminal stenosis 2. No acute fracture of the cervical spine. X-ray right shoulder-no abnormality detected Order MRI cervical spine Started on oxycodone and IV Dilaudid, lidocaine patch Ortho recs appreciated MRI cervical spine showing right paracentral disc bulge at C4-5, central disc bulge at C5-6 and right paracentral disc bulge at C6-7 all resulting in moderate to severe stenosis, especially on right and c/f chronic myelomalacia. No acute surgical spine intervention this admission, per ortho, but likely OP elective surg. Activity: as tolerated DVT ppx: okay from a spine standpoint Follow up scheduled with Dr. Cramer 08/19. Assessment & Plan (07/28/2025 5:56 PM CDT): CT cervical spine shows- 1. Multilevel degenerative disc disease with right paramedian and median posterior disc protrusion predominantly most prominent at the levels C4-7 causing up to severe multilevel central canal stenosis.varying degrees of up to severe neural foraminal stenosis 2. No acute fracture of the cervical spine. X-ray right shoulder-no abnormality detected Order MRI cervical spine Started on oxycodone and IV Dilaudid, lidocaine patch Ortho recs appreciated MRI cervical spine showing right paracentral disc bulge at C4-5, central disc bulge at C5-6 and right paracentral disc bulge at C6-7 all resulting in moderate stenosis, no cord signal changes. No acute surgical spine intervention warranted this admission Activity: as tolerated DVT ppx: okay from a spine standpoint Follow up scheduled with Dr. Cramer in 2 weeks to discuss outpatient surgery Cervical radiculopathy 07/28/2025 Assessment & Plan (07/29/2025 9:47 AM CDT): CT cervical spine shows- 1. Multilevel degenerative disc disease with right paramedian and median posterior disc protrusion predominantly most prominent at the levels C4-7 causing up to severe multilevel central canal stenosis.varying degrees of up to severe neural foraminal stenosis 2. No acute fracture of the cervical spine. X-ray right shoulder-no abnormality detected Order MRI cervical spine Started on oxycodone and IV Dilaudid, lidocaine patch Ortho recs appreciated MRI cervical spine showing right paracentral disc bulge at C4-5, central disc bulge at C5-6 and right paracentral disc bulge at C6-7 all resulting in moderate to severe stenosis, especially on right and c/f chronic myelomalacia. No acute surgical spine intervention this admission, per ortho, but likely OP elective surg. Activity: as tolerated DVT ppx: okay from a spine standpoint Follow up scheduled with Dr. Cramer 08/19. Assessment & Plan (07/28/2025 5:56 PM CDT): CT cervical spine shows- 1. Multilevel degenerative disc disease with right paramedian and median posterior disc protrusion predominantly most prominent at the levels C4-7 causing up to severe multilevel central canal stenosis.varying degrees of up to severe neural foraminal stenosis 2. No acute fracture of the cervical spine. X-ray right shoulder-no abnormality detected Order MRI cervical spine Started on oxycodone and IV Dilaudid, lidocaine patch Ortho recs appreciated MRI cervical spine showing right paracentral disc bulge at C4-5, central disc bulge at C5-6 and right paracentral disc bulge at C6-7 all resulting in moderate stenosis, no cord signal changes. No acute surgical spine intervention warranted this admission Activity: as tolerated DVT ppx: okay from a spine standpoint Follow up scheduled with Dr. Cramer in 2 weeks to discuss outpatient surgery Leucocytosis 07/28/2025 Assessment & Plan (07/29/2025 9:47 AM CDT): Likely reactive 2/2 pain, improved Was tachy which has since improved Given IV fluid No s/s infection appreciated on exam or imaging Assessment & Plan (07/28/2025 5:04 PM CDT): Likely reactive 2/2 pain, closely monitor Having also tachycardia Given IV fluid If suspicion of infection/sepsis please start cefepime, vancomycin Type 2 diabetes mellitus wit hout complication, without long-term current use of insulin 12/27/2023 Assessment & Plan (07/29/2025 9:47 AM CDT): Take Lantus 30, lispro scheduled 7 t.i.d. and sliding scale Resumed A1c improved 10 > 6.6 Assessment & Plan (07/28/2025 5:56 PM CDT): Take Lantus 30, lispro scheduled 7 t.i.d. and sliding scale Resumed Primary hypertension 12/22/2022 Assessment & Plan (07/29/2025 9:47 AM CDT): Continue home amlodipine, lisinopril, metoprolol Assessment & Plan (07/28/2025 5:04 PM CDT): Continue home amlodipine, lisinopril, metoprolol Assessment & Plan (12/22/2022 11:02 PM AGENCY SALES MANAGEMENT ASSISTANT): Hypertension is a main issue for the [...] 12/22/2022 Assessment & Plan (12/22/2022 11:03 PM AGENCY SALES MANAGEMENT ASSISTANT): Check TSH, lipid profile Encounters Date Type Department Care Team Description 08/28/2025 Travel 08/20/2025 Orders Only [facility] Physician [facility] - Orthopedics [address] [place] [phone] Nicki Wyatt RN Myeloradiculopathy 08/19/2025 3:00 PM CDT Office Visit [facility] Physician [facility] Orthopedics [address] [place] [phone] Ian Cramer MD Myeloradiculopathy (Primary Dx) 08/13/2025 Telephone [facility] Physician [facility]oped[facility] [address] [place] [phone] Nicki Wyatt, RN Refill Request 08/13/2025 Refill [facility] Physician [facility] [address] [place] [phone] Nicki Wyatt, CEILING CLEANER REFILL 08/08/2025 Telephone [facility] Physician [facility] [address] [place] [phone] Nicki Wyatt, PATTY General 08/08/2025 Telephone [facility] Physician [facility] [address] [place] [phone] Nicki Wyatt, RN Hospital Discharge 07/28/2025 9:51 AM CDT - 07/29/2025 3:01 PM CDT Hospital Encounter [facility] [address] [place] [address] Crispin Freeman MD Stanley, Chad, MD Rotramel, Hayden, MD Masud, MD Vinnie Arrieta Dominic R, DO Huang, Ev Quispe, Emergency Medicine Discharge Disposition: Home or Self Care 07/28/2025 Travel 07/25/2025 12:59 PM CDT - 07/25/2025 2:13 PM CDT Emergency [facility] [address] [place] [address] Jose Alejandro Beal MD Cervical radiculopathy (Primary Dx); Acute pain of right shoulder Discharge Disposition: Home or Self Care 07/25/2025 Travel from Last 3 Months Immunizations Immunization Administration Dates Next Due TDAP, [...] Sign Reading Time Taken Comments Blood Pressure 136/85 07/29/2025 12:11 PM CDT Pulse 99 07/29/2025 12:11 PM CDT Temperature 36.5 C (97.7 F) 07/29/2025 12:11 PM CDT Respiratory Rate 18 07/29/2025 12:11 PM CDT Oxygen Saturation 98% 07/29/2025 12:11 PM CDT Inhaled Oxygen Concentration - - Weight 88.5 kg (195 lb) 07/28/2025 9:43 AM CDT Height 162.6 cm (5' 4) 07/28/2025 9:43 AM CDT Body Mass Index 33.47 07/28/2025 9:43 AM CDT Plan of Treatment Upcoming Encounters Date Type Department Care Team (Latest Contact Info) Description 10/21/2025 3:15 PM AGENCY SALES MANAGEMENT ASSISTANT Office Visit [facility] - Orthopedics [address] [place] [address], [place] [phone] Ian Cramer MD [address] [place] [phone] 11/03/2025 10:50 AM AGENCY SALES MANAGEMENT ASSISTANT Hospital Encounter [facility] [address] [place] [phone] Ian Cramer MD [address] [place] [id number] Surgery General 11/03/2025 10:50 AM AGENCY SALES MANAGEMENT ASSISTANT - 11/03/2025 3:20 PM AGENCY SALES MANAGEMENT ASSISTANT Surgery [facility] [address] [place] [address] Ian Cramer MD [address] [place] [id number] CERVICAL 3-7 INSTRUMENTED POSTERIOR SPINAL FUSION, CERVICAL 4-7 LAMINECTOMIES AND RIGHT SIDED FORAMINOTOMIES Scheduled Procedures Name Priority Associated Diagnoses Date/Ti me FUSION POSTERIOR CERVICAL (PCF) Cervical radiculopathy 11/03/2025 10:50 AM AGENCY SALES MANAGEMENT ASSISTANT Health Maintenance Due Date Last Done Comments COLOGUARD (AGES 45-75) - COLON CA SCREENING 1980 COLON MONITORING 1980 COLONOSCOPY - COLON CA SCREENING 1980 CT COLONOGRAPHY - COLON CA SCREENING 1980 Colorectal Cancer Screening 1980 FIT - COLON CA SCREENING 1980 FLEX SIG - COLON CA SCREENING 1980 HEPATITIS C SCREENING 07/07/1998 HEPATITIS B VACCINE (1 of 3 - 19+ 3-dose series) 1999 PNEUMOCOCCAL VACCINE (1 of 2 - PCV) 1999 HPV VACCINE (1 - 3-dose SCDM series) 2007 DIABETES-STATIN 2020 DIABETES RETINOPATHY SCREENING 12/27/2023 DIABETES-FOOT EXAM WITH MONOFILAMENT 12/27/2023 DEPRESSION SCREENING 11/06/2024 12/27/2023 DIABETES - URINE PROTEIN SCREENING 11/06/2024 COVID-19 VACCINE (1 - season) 2025 INFLUENZA VACCINE (#1) 2025 DIABETES-HGB A1C 01/26/2026 07/29/2025 MAMMOGRAM 07/12/2026 07/12/2024 DIABETES-SERUM CREATININE 07/29/20262024, 07/28/2025, 07/25/2025, Additional history exists DTAP/TDAP/TD VACCINES (2 - Td or Tdap) 10/23/2027 10/23/2017 ZOSTER VACCINE (1 of 2) 2030 HIB VACCINE Aged Out No longer eligi ble based on patient's age to complete this topic HIV SCREENING Discontinued MENINGOCOCCAL (Group B) VACCINE SHARED DECISION-MAKING Aged Out No longer eligible based on patient's age to complete this topic MENINGOCOCCAL GROUPS A/C/Y/W VACCINE Aged Out No longer eligible based on patient's age to complete this topic Procedures Procedure Name Priority Date/Time Associated Diagnosis Comments GLUCOSE - POINT OF CARE Routine 07/29/2025 9:34 AM CDT HEMOGLOBIN A1C Routine 07/29/2025 2:10 AM CDT Neck pain Numbness and tingling of right arm CBC W/O DIFFERENTIAL AM Draw 07/29/2025 2:10 AM CDT Neck pain Numbness and tingling of right arm RENAL FUNCTION PANEL AM Draw 07/29/2025 2:10 AM CDT Neck pain Numbness and tingling of right arm MAGNESIUM BLOOD AM Draw 07/29/2025 2:10 AM CDT Neck pain Numbness and tingling of right arm GLUCOSE - POINT OF CARE Routine 07/28/2025 9:42 PM CDT GLUCOSE - POINT OF CARE Routine 07/28/2025 6:53 PM CDT GLUCOSE - POINT OF CARE Routine 07/28/2025 4:02 PM CDT XR CERVICAL SPINE 2 OR 3VW STAT 07/28/2025 3:28 PM CDT Numbness and tingling of right arm GLUCOSE - POINT OF CARE Routine 07/28/2025 2:27 PM CDT OT EVAL AND TREAT Routine 07/28/2025 2:0 8 PM CDT PT EVAL AND TREAT Routine 07/28/2025 2:0 8 PM CDT MRI CERVICAL SPINE WO CONTRAST STAT 07/28/2025 1:58 PM CDT Neck pain Numbness and tingling of right arm Right arm pain COMPREHENSIVE METABOLIC PANEL STAT 07/28/2025 11:52 AM CDT BLOOD TYPE VERIFICATION STAT 07/28/2025 11:33 AM CDT TYPE + SCREEN PANEL STAT 07/28/2025 1 0:53 AM CDT DIFFERENTIAL MANUAL STAT 07/28/2025 1 0:53 AM CDT PT-INR STAT 07/28/2025 10:53 AM CDT CBC W AUTO DIFFERENTIAL STAT 07/28/2025 10:53 AM CDT XR SHOULDER RIGHT 2VW OR MORE STAT 07/25/2025 1:10 PM CDT Acute pain of right shoulder CT CERVICAL SPINE WO CONTRAST STAT 07/25/2025 1:05 PM CDT Cervical radiculopathy COMPREHENSIVE METABOLIC PANEL STAT 07/25/2025 12:59 PM CDT CBC W AUTO DIFFERENTIAL STAT 07/25/2025 12:59 PM CDT MAMMO BILAT SCREENING W MYRTLE Routine 07/12/2024 10:54 AM CDT Breast cancer screening by mammogram from Last 3 Months or Most Recently Relevant to Health Maintenance Results * (ABNORMAL) GLUCOSE - POINT OF CARE (07/29/2025 9:34 AM CDT) Only the most recent of5 resultswithin the time period is included. Glucose WB/POC 204(H) 70 - 99 mg/dL 07/29/2025 9:35 AM CDT [facility] Specimen Type Arterial/C apillary 07/29/2025 9:35 AM CDT [facility] Blood BLOOD SPECIMEN / Unknown 07/29/2025 9:34 AM CDT 07/29/2025 9:35 AM CDT us Ev Huang DO LAB - POINT OF CARE ORDERABLES Final Result [address] [address], [facility] [phone] * (ABNORMAL) HEMOGLOBIN A1C (07/29/2025 2:10 AM CDT) Hemoglobin A1c 6.6(H) <=5.6 % 07/29/2025 8:51 AM CDT [facility] Estimated Average Glucose 143 mg/dL 07/29/2025 8:51 AM [facility] Comment: HbA1c Interpretation: Normal : < 5.7% Pre-diabetes: 5.7-6.4% Diabetes: Equal to or greater than 6.5% Test results diagnostic of diabetes should be repeated for confirmation. Treatment target values recommended by ADA and other clinical organizations should be used to evaluate metabolic control in patients. Reference: [place] Diabetes Association, Standards of Care in Diabetes -2020 In patients 70 years and older consider HbA1c target range of 7.0-7.5% (Reference: Ridge Helm et al. JAMDA. 2012) The Sebia assay for the measurement of HbA1c is a National Glycohemoglobin Standardization Program (NGSP) certified method. Blood BLOOD SPECIMEN / Unknown Lab Venipuncture / Unknown 07/29/2025 2:10 AM CDT 07/29/2025 3:51 AM CDT Radha Sanchez MD LAB - CHEMISTRY ORDERABLES Final Result [facility] [address] [place] [address], [facility] [phone] * (ABNORMAL) CBC W/O DIFFERENTIAL (07/29/2025 2:10 AM CDT) WBC 14.1(H) 4.0 - 10.7 x10E9/L 07/29/2025 4:00 AM [facility] RBC Count 4.69 3.90 - 5.20 x10E12/L 07/29/2025 4:00 AM [facility] Hemoglobin 14.0 11.9 - 15.8 g/dL 07/29/2025 4:00 AM [facility] Hematocrit 40.6 34.8 - 46.1 % 07/29/2025 4:00 AM [facility] MCV 86.6 80.0 - 98.0 fL 07/29/2025 4:00 AM [facility] MCH 29.9 26.7 - 33.6 pg 07/29/2025 4:00 AM [facility] MCHC 34.5 31.7 - 36.3 g/dL 07/29/2025 4:00 AM [facility] RDW-CV 12.9 11.3 - 14.8 % 07/29/2025 4:00 AM [facility] Platelet Count 242 150 - 420 x10E9/L 07/29/2025 4:00 AM [facility] MPV 11.0 7.8 - 11.4 fL 07/29/2025 4:00 AM [facility] Blood BLOOD SPECIMEN / Unknown Lab Venipuncture / Unknown 07/29/2025 2:10 AM CDT 07/29/2025 3:51 AM CDT Rdaha Sanchez MD LAB - HEMATOLOGY ORDERABLES Final Result [facility] [address] [place] [address], [facility] [phone] * (ABNORMAL) RENAL FUNCTION PANEL (07/29/2025 2:10 AM CDT) BUN 27(H) 7 - 26 mg/dL 07/29/2025 4:32 AM [facility] Creatinine 0.67 0.56 - 0.96 mg/dL 07/29/2025 4:32 AM [facility] Sodium 135(L) 136 - 145 mmol/L 07/29/2025 4:32 AM [facility] Potassium 4.6(H) 3.5 - 4.5 mmol/L 07/29/2025 4:32 AM [facility] Chloride 107 98 - 107 mmol/L 07/29/2025 4:32 AM [facility] CO2 19(L) 22 - 29 mmol/L 07/29/2025 4:32 AM [facility] Glucose 211(H) 70 - 99 mg/dL 07/29/2025 4:32 AM [facility] Albumin 3.7 3.4 - 5.0 g/dL 07/29/2025 4:32 AM [facility] Calcium 9.0 8.4 - 10.2 mg/dL 07/29/2025 4:32 AM T [facility] Phosphorus 2.9 2.9 - 5.1 mg/dL 07/29/2025 4:32 AM [facility] Anion Gap 9 6 - 16 07/29/2025 4:32 AM [facility] BUN/Creatinine Ratio 40(H) 7 - 23 07/29/2025 4:32 AM [facility] Osmolality Calculated 291 275 - 295 mOsm/kg 07/29/2025 4:32 AM [facility] eGFR by CKD-EPI >90 >=90 mL/min/1.7 3 m2 07/29/2025 4:32 AM [facility] Comment:Estimated Glomerular Filtration Rate (eGFR) calculated using the CKD-EPI Creatinine Equation (2020), per the National Kidney Foundation and [place] Society of Nephrology recommendations. Blood BLOOD SPECIMEN / Unknown Lab Venipuncture / Unknown 07/29/2025 2:10 AM CDT 07/29/2025 3:49 AM CDT Radha Sanchez MD LAB - CHEMISTRY ORDERABLES Final Result [address] [address], [place] [phone] * MAGNESIUM BLOOD (07/29/2025 2:10 AM CDT) Magnesium 2.1 1.6 - 2.6 mg/dL 07/29/2025 4:32 AM T [facility] Blood BLOOD SPECIMEN / Unknown Lab Venipuncture / Unknown 07/29/2025 2:10 AM CDT 07/29/2025 3:49 AM CDT Radha Sanchez MD LAB - CHEMISTRY ORDERABLES Final Result [address] [address], [place] [phone] * XR Cervical Spine 2 or 3Vw (07/28/2025 3:28 PM CDT) Anatomical Region Laterality Modality Spine Digital Radiogra phy 07/29/2025 7:52 AM CDT Impressions 07/29/2025 8:48 AM CDT IMPRESSION: No acute fracture or malalignment identified. Report dictated by Eliceo Estevez DO, (residential collections). > Dictated by Eliceo Estevez DO 07/29/2025 7:52 AM > Dictated by [employer] Equipment Tender I, Suzanne Baird MD have personally reviewed and interpreted this examination/study. > Interpreting Provider: Suzanne Baird MD on 07/29/2025 8:48 AM Narrative 07/29/2025 8:48 AM CDT PROCEDURE: XR CERVICAL SPINE 2 OR 3VW, DATE/TIME OF EXAM: 07/28/2025 3:28 PM, LOCATION [facility] INDICATION: R20.0: Numbness and tingling of right arm R20.2: Numbness and tingling of right arm ADDITIONAL CLINICAL INFORMATION: Ordering Provider Reason For Exam: Cervical spine stability, films must be upright Technologist Note: Additional: None. COMPARISON: None. FINDINGS: There is mild anterolisthesis of C2 on C3 and C3 on C4 with gentle cervical kyphosis. No acute fracture or compression deformity is identified. There is mild intervertebral disc height loss at C5-6 and C6-7. Evaluation of C1 and C2 alignment is limited due to the absence of odontoid view, lateral masses appear normally aligned. The predental interval and prevertebral soft tissues are normal. Procedure Note Suzanne Baird MD - 07/29/2025 PROCEDURE: XR CERVICAL SPINE 2 OR 3VW, DATE/TIME OF EXAM: 53:28 PM, LOCATION [facility] INDICATION: R20.0: Numbness and tingling of right arm R20.2: Numbness and tingling of right arm ADDITIONAL CLINICAL INFORMATION: Ordering Provider Reason For Exam: Cervical spine stability, films mustbe upright Technologist Note: Additional: None. COMPARISON: None. FINDINGS: There is mild anterolisthesis of C2 on C3 and C3 on C4 with gentlecervical kyphosis. No acute fracture or compression deformity is identified.There is mild intervertebral disc height loss at C5-6 and C6-7. Evaluation ofC1 and C2 alignment is limited due to the absence of odontoid view, lateral masses appear normally aligned. The predental interval and prevertebral soft tissues are normal. IMPRESSION: No acute fracture or malalignment identified. Report dictated by Eliceo Estevez DO, (residential collections). > Dictated by Eliceo Estevez DO 07/29/2025 7:52 AM > Dictated by [employer] I, Suzanne Baird MD have personally reviewed and interpreted this examination/study. > Interpreting Provider: Suzanne Baird MD on 07/29/2025 8:48 AM Сергей Bhakta MD DIAGNOSTIC IMAGING ORDERABLES Fi nal Result * MRI Cervical Spine Wo Contrast (07/28/2025 1:58 PM CDT) Anatomical Region Laterality Modality Pelvis Magnetic Resonan ce 07/28/2025 6:34 PM CDT Impressions 07/28/2025 10:19 PM CDT IMPRESSION: 1.Multilevel degenerative disc and joint disease as detailed level by level above, worst at C5-C6 and C4-C5, as outlined. 2.There is cord compression with decreased cord caliber and abnormal cord signal at the level of C5-C6, compatible with chronic compressive myelopathy/myelomalacia. Eccentric right disc protrusion at the level of C4-C5 resulting in severe stenosis of the right aspect of thecal sac and severe cord compression on the right aspect as outlined above. Results of this exam were communicated with closed loop confirmation to Dr. Quan by Dr. Marx on 07/28/2025 at 8:08 PM, with read back comprehension and verification. > Interpreting Provider: Anabela Marx MD on 07/28/2025 10:19 PM Narrative 07/28/2025 10:19 PM CDT PROCEDURE: MRI CERVICAL SPINE WO CONTRAST, DATE/TIME OF EXAM: 07/28/2025 2:00 PM, LOCATION [facility] INDICATION: M54.2: Neck pain R20.0: Numbness and tingling of right arm R20.2: Numbness and tingling of right arm M79.601: Right arm pain ADDITIONAL CLINICAL INFORMATION: Ordering Provider Reason For Exam: Cord compression Technologist Note: Does the patient have a pacemaker or defibrillator?->No Does the patient have metal implants or stents?->No Additional: None. EXAMINATION: Magnetic resonance imaging (MRI) of the cervical spine without contrast TECHNIQUE: MRI of the cervical spine was performed without contrast according to standard protocol. COMPARISON: CT of the cervical spine from 07/25/2025. FINDINGS: Gentle kyphosis of the cervical spine centered at C4-C6. The alignment is otherwise maintained. Vertebral bodies are normal in height without evidence of compression fractures. Decreased T1 and T2 marrow signal of the visualized cervicothoracic spine, the skull base, and the visualized calvarium, which is a nonspecific finding but can be seen in the setting of anemia. Marrow signal intensity is otherwise grossly unremarkable. The craniocervical junction and visualized portions of the posterior fossa appear normal. There is cord compression at the level of C4-C5, on the right due to diffuse disc bulge and eccentric right central/paracentral disc protrusion. Diffuse disc bulge at the level of C5-C6 resulting in severe spinal canal stenosis or severe cord compression with abnormal cord signal and decreased cord caliber, compatible with chronic compressive myelopathy/myelomalacia. The anterior and posterior longitudinal ligaments as well as the posterior ligamentous complex appear intact. There is mild disc height loss at multiple levels. No soft tissue abnormality is identified. Normal flow voids are identified in the vertebral arteries. There are foci of calcifications of the PLL, worse in the mid cervical spine at the level of C5, C6, C7, and C4. Additional superimposed multilevel degenerative disc and joint disease as follows: C2-3: There is minimal disc bulge. Minimal hypertrophy of the ligamentum flavum. There is minimal central canal stenosis. There is mild facet osteoarthritis. There is no uncovertebral joint osteoarthritis. There is no hiatal neural foraminal stenosis. C3-4: There is diffuse disc bulge/disc osteophyte complex, eccentric to the right. There is mild evident throughout the ligamentum flavum. There is moderate central canal stenosis. There is moderate facet osteoarthritis. There is moderate uncovertebral joint osteoarthritis. There is mild right and moderate left neural foraminal stenosis. C4-5: There is diffuse disc bulge with a superimposed prominent right central/paracentral disc protrusion resulting in significant compression on the right anterior aspect of thecal sac and moderate or moderate to severe compression on the far right aspect of the cervical cord at this level, (series 5, image 17).. There is moderate central canal stenosis. There is moderate facet osteoarthritis. There is moderate uncovertebral joint osteoarthritis. There is moderate bilateral neural foraminal stenosis. C5-6: There is diffuse disc bulge. There is mild hypertrophy of the ligamentum flavum.. There is severe central canal stenosis. There is cord compression with decreased cord caliber and abnormal cord signal, compatible with chronic compressive myelopathy/myelomalacia. There is moderate facet osteoarthritis. There is moderate uncovertebral joint osteoarthritis. There is severe bilateral neural foraminal stenosis. C6-7: There is diffuse disc bulge, with eccentric right paracentral/foraminal/extraforaminal disc protrusion, resulting in mild narrowing of the right aspect of thecal sac and minimal cord abutment. There is mild or mild to moderate central canal stenosis. There is mild facet osteoarthritis. There is moderate uncovertebral joint osteoarthritis. There is severe right and mild left neural foraminal stenosis. C7-T1: There is minimal disc bulge. There is minimal hypertrophy of the ligamentum flavum. There is mild central canal stenosis. There is mild facet osteoarthritis. There is no uncovertebral joint osteoarthritis. There is mild, relative neural foraminal stenosis. There are bilateral perineural cysts, measuring up to 7 mm on the right, (series 5, image 28). Procedure Note Anabela Marx MD - 07/28/2025 PROCEDURE: MRI CERVICAL SPINE WO CONTRAST, DATE/TIME OF EXAM:07/28/2025 2:00 PM, LOCATION [facility] INDICATION: M54.2: Neck pain R20.0: Numbness and tingling of right arm R20.2: Numbness and tingling of right arm M79.601: Right arm pain ADDITIONAL CLINICAL INFORMATION: Ordering Provider Reason For Exam: Cord compression Technologist Note: Does the patient have a pacemaker ordefibrillator?->No Does the patient have metal implants or stents?->No Additional: None. EXAMINATION: Magnetic resonance imaging (MRI) of the cervical spinewithout contrast TECHNIQUE: MRI of the cervical spine was performed without contrast according to standard protocol. COMPARISON: CT of the cervical spine from 07/25/2025. FINDINGS: Gentle kyphosis of the cervical spine centered at C4-C6. The alignmentis otherwise maintained. Vertebral bodies are normal in height without evidence of compression fractures. Decreased T1 and T2 marrow signal ofthe visualized cervicothoracic spine, the skull base, and the visualized calvarium, which is a nonspecific finding but can be seen in the settingof anemia. Marrow signal intensity is otherwise grossly unremarkable. The craniocervical junction and visualized portions of the posterior fossa appear normal. There is cord compression at the level of C4-C5, on the right due to diffuse disc bulge and eccentric right central/paracentral disc protrusion. Diffuse disc bulge at the level of C5-C6 resulting in severe spinal canal stenosis or severe cord compression with abnormalcord signal and decreased cord caliber, compatible with chronic compressive myelopathy/myelomalacia. The anterior and posterior longitudinalligaments as well as the posterior ligamentous complex appear intact. There ismild disc height loss at multiple levels. No soft tissue abnormality is identified. Normal flow voids are identified in the vertebral arteries. There are foci of calcifications of the PLL, worse in the mid cervical spine at the level of C5, C6, C7, and C4. Additional superimposed multilevel degenerative disc and joint disease as follows: C2-3: There is minimal disc bulge. Minimal hypertrophy of the ligamentum flavum. There is minimal central canal stenosis. There is mild facet osteoarthritis. There is no uncovertebral joint osteoarthritis. There isno hiatal neural foraminal stenosis. C3-4: There is diffuse disc bulge/disc osteophyte complex, eccentric tothe right. There is mild evident throughout the ligamentum flavum. There is moderate central canal stenosis. There is moderate facet osteoarthritis. There is moderate uncovertebral joint osteoarthritis. There is mildright and moderate left neural foraminal stenosis. C4-5: There is diffuse disc bulge with a superimposed prominent right central/paracentral disc protrusion resulting in significant compressionon the right anterior aspect of thecal sac and moderate or moderate tosevere compression on the far right aspect of the cervical cord at this level, (series 5, image 17).. There is moderate central canal stenosis. Thereis moderate facet osteoarthritis. There is moderate uncovertebral joint osteoarthritis. There is moderate bilateral neural foraminal stenosis. C5-6: There is diffuse disc bulge. There is mild hypertrophy of the ligamentum flavum.. There is severe central canal stenosis. There iscord compression with decreased cord caliber and abnormal cord signal, compatible with chronic compressive myelopathy/myelomalacia. There is moderate facet osteoarthritis. There is moderate uncovertebral joint osteoarthritis. There is severe bilateral neural foraminal stenosis. C6-7: There is diffuse disc bulge, with eccentric right paracentral/foraminal/extraforaminal disc protrusion, resulting in mild narrowing of the right aspect of thecal sac and minimal cord abutment. There is mild or mild to moderate central canal stenosis. There is mild facet osteoarthritis. There is moderate uncovertebral jointosteoarthritis. There is severe right and mild left neural foraminal stenosis. C7-T1: There is minimal disc bulge. There is minimal hypertrophy of the ligamentum flavum. There is mild central canal stenosis. There is mild facet osteoarthritis. There is no uncovertebral joint osteoarthritis.There is mild, relative neural foraminal stenosis. There are bilateralperineural cysts, measuring up to 7 mm on the right, (series 5, image 28). IMPRESSION: 1.Multilevel degenerative disc and joint disease as detailed level bylevel above, worst at C5-C6 and C4-C5, as outlined. 2.There is cord compression with decreased cord caliber and abnormalcord signal at the level of C5-C6, compatible with chronic compressive myelopathy/myelomalacia. Eccentric right disc protrusion at the level of C4-C5 resulting in severe stenosis of the right aspect of thecal sac and severe cord compression on the right aspect as outlined above. Results of this exam were communicated with closed loop confirmation to Dr. Quan by Dr. Marx on 07/28/2025 at 8:08 PM, with read back comprehension and verification. > Interpreting Provider: Anabela Marx MD on 07/28/2025 10:19 PM Сергей Bhakta MD MR ORDERABLES Final Result * (ABNORMAL) COMPREHENSIVE METABOLIC PANEL (07/28/2025 11:52 AM CDT) Only the most recent of2 resultswithin the time period is included. BUN 17 7 - 26 mg/dL 07/28/2025 12:42 PM [facility] Creatinine 0.63 0.56 - 0.96 mg/dL 07/28/2025 12:42 PM [facility] Sodium 136 136 - 145 mmol/L 07/28/2025 12:42 PM [facility] Potassium 3.6 3.5 - 4.5 mmol/L 07/28/2025 12:42 PM [facility] Chloride 103 98 - 107 mmol/L 07/28/2025 12:42 PM [facility] CO2 20(L) 22 - 29 mmol/L 07/28/2025 12:42 PM [facility] Glucose 276(H) 70 - 99 mg/dL 07/28/2025 12:42 PM [facility] Calcium 9.2 8.4 - 10.2 mg/dL 07/28/2025 12:42 PM [facility] Protein Total 7.1 6.0 - 8.3 g/dL 07/28/2025 12:42 PM [facility] Albumin 4.3 3.4 - 5.0 g/dL 07/28/2025 12:42 PM [facility] Bilirubin Total 1.0 0.2 - 1.2 mg/dL 07/28/2025 12:42 PM [facility] Alkaline Phosphatase 65 40 - 150 U/L 07/28/2025 12:42 PM [facility] ALT 21 5 - 55 U/L 07/28/2025 12:42 PM [facility] AST 12 5 - 34 U/L 07/28/2025 12:42 PM [facility] Anion Gap 13 6 - 16 07/28/2025 12:42 PM [facility] BUN/Creatinine Ratio 27(H) 7 - 23 07/28/2025 12:42 PM [facility] Osmolality Calculated 293 275 - 295 mOsm/kg 07/28/2025 12:42 PM [facility] Albumin/Globulin Ratio 1.5 1.1 - 2.3 07/28/2025 12:42 PM [facility] eGFR by CKD-EPI >90 >=90 mL/min/1.7 3 m2 07/28/2025 12:42 PM [facility] Comment:Estimated Glomerular Filtration Rate (eGFR) calculated using the CKD-EPI Creatinine Equation (2020), per the [employer] Kid[employer] and [employer]ph[employer] recommendations. Blood BLOOD SPECIMEN / Unknown Venipuncture / Unknown 07/28/2025 11:52 AM CDT 07/28/2025 12:08 PM CDT Сергей Bhakta MD LAB - CHEMISTRY ORDERABLES Final Result [facility] [address] [place] [address], [place] [phone] * BLOOD TYPE VERIFICATION (07/28/2025 11:33 AM CDT) ABO Rh A POS 07/28/2025 12:27 PM CDT [facility] Blood Bank BLOOD SPECIMEN / Unknown Venipuncture / Unknown 07/28/2025 11:33 AM CDT 07/28/2025 11:49 AM CDT Сергей Bhakta MD LAB - BLOOD BANK ORDERABLES Alyx l Result Performing Organization Address City/[facility]/ZIP Co de Phone Number [facility] [address] [place] [address], [place] [phone] * TYPE + SCREEN PANEL (07/28/2025 10:53 AM CDT) Antibody Screen NEG 11:50 AM CDT [facility] ABO Rh A POS 07/28/2025 11:50 AM CDT [facility] Blood Bank BLOOD SPECIMEN / Unknown Venipuncture / Unknown 07/28/2025 10:53 AM CDT 07/28/2025 11:02 AM CDT Сергей Bhakta MD LAB - BLOOD BANK ORDERABLES Alyx l Result [facility] [address] [place] [address], [place] [phone] * PT-INR (07/28/2025 10:53 AM CDT) PT 12.4 12.1 - 14.8 Seconds 07/28/2025 11:27 AM CDT [facility] INR 0.9 See Comment 07/28/2025 11:27 AM [facility] Comment:The suggested therap eutic range for standard coumadin (warfarin) therapy is an INR of 2.0-3.0. For high-risk patients (Mechanical Mitral Valve Prosthesis, etc.), the suggested prophylactic therapeutic range is an INR of 2.5-3.5. Blood BLOOD SPECIMEN / Unknown Venipuncture / Unknown 07/28/2025 10:53 AM CDT 07/28/2025 10:59 AM CDT us Сергей Bhakta MD LAB - COAGULATION ORDERABLES Fin al Result [facility] [address] [place] [id number] [phone] * (ABNORMAL) DIFFERENTIAL MANUAL (07/28/2025 10:53 AM CDT) Neutrophil % 73 41 - 74 % 07/28/2025 11:38 AM [facility] Lymphocyte % 19 17 - 47 % 07/28/2025 11:38 AM [facility] Monocyte % 4 3 - 11 % 07/28/2025 11:38 AM [facility] Eosinophil % 2 0 - 7 % 07/28/2025 11:38 AM [facility] Basophil % 2 0 - 2 % 07/28/2025 11:38 AM [facility] Neutrophil Absolute 14.24(H) 1.60 - 7.50 x10E9/L 07/28/2025 11:38 AM [facility] Lymphocyte Absolute 3.71 1.00 - 4.40 x10E9/L 07/28/2025 11:38 AM [facility] Monocyte Absolute 0.78 0.15 - 1.00 x10E9/L 07/28/2025 11:38 AM [facility] Eosinophil Absolute 0.39 0.00 - 0.60 x10E9/L 07/28/2025 11:38 AM [facility] Basophil Absolute 0.39(H) 0.00 - 0.13 x10E9/L 07/28/2025 11:38 AM [facility] RBC Morphology NORMAL 07/28/2025 11:38 AM [facility] Blood BLOOD SPECIMEN / Unknown Venipuncture / Unknown 07/28/2025 10:53 AM CDT 07/28/2025 10:59 AM CDT us Сергей Bhakta MD LAB - HEMATOLOGY ORDERABLES Alyx huntley Result [facility] [address] [place] [address], [facility] [phone] * (ABNORMAL) CBC W AUTO DIFFERENTIAL (07/28/2025 10:53 AM CDT) Only the most recent of2 resultswithin the time period is included. WBC 19.5(H) 4.0 - 10.7 x10E9/L 07/28/2025 11:38 AM [facility] RBC Count 5.37(H) 3.90 - 5.20 x10E12/L 07/28/2025 11:38 AM [facility] Hemoglobin 16.4(H) 11.9 - 15.8 g/dL 07/28/2025 11:38 AM [facility] Hematocrit 44.7 34.8 - 46.1 % 07/28/2025 11:38 AM [facility] MCV 83.2 80.0 - 98.0 fL 07/28/2025 11:38 AM [facility] MCH 30.5 26.7 - 33.6 pg 07/28/2025 11:38 AM [facility] MCHC 36.7(H) 31.7 - 36.3 g/dL 07/28/2025 11:38 AM [facility] RDW-CV 12.4 11.3 - 14.8 % 07/28/2025 11:38 AM [facility] Platelet Count 344 150 - 420 x10E9/L 07/28/2025 11:38 AM [facility] MPV 9.8 7.8 - 11.4 fL 07/28/2025 11:38 AM [facility] Blood BLOOD SPECIMEN / Unknown Venipuncture / Unknown 07/28/2025 10:53 AM CDT 07/28/2025 10:59 AM CDT us Сергей Bhakta MD LAB - HEMATOLOGY ORDERABLES Alyx huntley Result [facility] [address] [place] [address], [facility] [phone] * XR Shoulder Right 2Vw or More (07/25/2025 1:10 PM CDT) Anatomical Region Laterality Modality Upper Extremity Digital Radiogra phy 07/25/2025 1:58 PM CDT Impressions 07/25/2025 2:01 PM CDT IMPRESSION: No acute bony abnormality. > Interpreting Provider: Marcella Christine MD on 07/25/2025 2:01 PM Narrative 07/25/2025 2:01 PM CDT PROCEDURE: XR SHOULDER RIGHT 2VW OR MORE DATE/TIME OF EXAM: 07/25/2025 1:10 PM CLINICAL INFORMATION: None relevant/not provided if blank. Indication: M25.511: Acute pain of right shoulder Additional History: Rule out fracture versus other COMPARISON: Right shoulder x-rays 08/03/2019. FINDINGS: There is no fracture or dislocation. The glenohumeral joint space is preserved. Degenerative changes are seen at the AC joint. Bone density is normal. Procedure Note Marcella Christine MD - 07/25/2025 PROCEDURE: XR SHOULDER RIGHT 2VW OR MORE DATE/TIME OF EXAM: 07/25/2025 1:10 PM CLINICAL INFORMATION: None relevant/not provided if blank. Indication: M25.511: Acute pain of right shoulder Additional History: Rule out fracture versus other COMPARISON: Right shoulder x-rays 08/03/2019. FINDINGS: There is no fracture or dislocation. The glenohumeral joint space is preserved. Degenerative changes are seen at the AC joint. Bone densityis normal. IMPRESSION: No acute bony abnormality. > Interpreting Provider: Marcella Christine MD on 07/25/2025 2:01 PM us Anabell J Huizar PA-C DIAGNOSTIC IMAGING ORDERABL ES Final Result * CT CERVICAL SPINE WO CONTRAST (07/25/2025 1:05 PM CDT) Anatomical Region Laterality Modality Spine Computed Tomogra phy 07/25/2025 1:17 PM CDT Impressions 07/25/2025 3:48 PM CDT IMPRESSION: 1. Multilevel degenerative disc disease with right paramedian and median posterior disc protrusion predominantly most prominent at the levels C4-7 causing up to severe multilevel central canal stenosis. This is accompanied by mild facet and moderate uncovertebral joint osteoarthritis at C5-C7 and varying degrees of up to severe neural foraminal stenosis, predominantly on the right as detailed above. If clinically warranted, may obtain MRI of the cervical spine for further evaluation. 2. No acute fracture of the cervical spine. Findings were communicated to Jose Alejandro Beal MD by telephone by Dr. Andrea at 07/25/2025 2:00 PM. The report is dictated by Renato Andrea MD, (residential collections) 07/25/2025 1:59 PM. > Dictated by Renato Andrea Dr 07/25/2025 1:17 PM > Dictated by [employer] I, Suzanne Baird MD have personally reviewed and interpreted this examination/study. > Interpreting Provider: Suzanne Baird MD on 07/25/2025 3:48 PM Narrative 07/25/2025 3:48 PM CDT PROCEDURE: CT CERVICAL SPINE WO CONTRAST, DATE/TIME OF EXAM: 07/25/2025 1:06 PM, LOCATION [facility] INDICATION: M54.12: Cervical radiculopathy ADDITIONAL CLINICAL INFORMATION: Ordering Provider Reason For Exam: ro fx vs other EXAMINATION: Computed tomography (CT) of the cervical spine without contrast TECHNIQUE: CT of the cervical spine was performed without contrast according to standard protocol. COMPARISON: No prior study is available for comparison at the time of this dictation. FINDINGS: The alignment is normal. There is significant osteoarthritic/ degenerative of the vertebral bodies with anterior and posterior osteophytosis and endplate sclerosis. Limbus vertebrae are seen at C5-6 and C6-7. The prevertebral soft tissue is normal in thickness. The mineralization of the bones is normal. Vertebral bodies are normal in height without evidence of acute fracture. The craniocervical junction is normal. There is mild to moderate multilevel degenerative disc disease. The central canal is severely stenotic at multiple levels detailed below. There are varying degrees of mild to moderate multiple facet osteoarthritis. There are varying degrees of up to severe neural foraminal stenosis, as detailed below. C2-3: There is mild disc bulge and thickening of the posterior longitudinal ligament. There is mild central canal stenosis. There is no facet osteoarthritis. There is no uncovertebral joint osteoarthritis. There is no neural foraminal stenosis. C3-4: There is mild median disc bulge and thickening of the posterior longitudinal ligament. No neural foraminal stenosis. There is mild central canal stenosis. There is no facet osteoarthritis. There is no uncovertebral joint osteoarthritis. C4-5: There is moderate right paramedian disc bulge and posterior osteophyte complex. There is severe central canal stenosis. There is no facet osteoarthritis. There is no uncovertebral joint osteoarthritis. There is severe right neural foraminal stenosis. C5-6: There is moderate perimedian and median disc bulge and posterior osteophyte complex. There is severe central canal stenosis. There is mild facet osteoarthritis. There is moderate uncovertebral joint osteoarthritis. There is mild bilateral neural foraminal stenosis. C6-7: There is moderate right paramedian and median disc bulge and posterior osteophyte complex. There is severe central canal stenosis. There is mild facet osteoarthritis. There is moderate uncovertebral joint osteoarthritis. There is severe right neural foraminal stenosis. C7-T1: There is mild right paramedian and median disc bulge. There is mild central canal stenosis. There is no facet osteoarthritis. There is no uncovertebral joint osteoarthritis. There is mild neural foraminal stenosis. Procedure Note Suzanne Baird MD - 07/25/2025 PROCEDURE: CT CERVICAL SPINE WO CONTRAST, DATE/TIME OF EXAM: 07/25/2025 1:06 PM, LOCATION [facility] INDICATION: M54.12: Cervical radiculopathy ADDITIONAL CLINICAL INFORMATION: Ordering Provider Reason For Exam: ro fx vs other EXAMINATION: Computed tomography (CT) of the cervical spine without contrast TECHNIQUE: CT of the cervical spine was performed without contrast according to standard protocol. COMPARISON: No prior study is available for comparison at the time ofthis dictation. FINDINGS: The alignment is normal. There is significant osteoarthritic/degenerative of the vertebral bodies with anterior and posterior osteophytosis and endplate sclerosis. Limbus vertebrae are seen at C5-6 and C6-7. The prevertebral soft tissue is normal in thickness. The mineralization ofthe bones is normal. Vertebral bodies are normal in height without evidenceof acute fracture. The craniocervical junction is normal. There is mild to moderate multilevel degenerative disc disease. The central canal is severely stenotic at multiple levels detailed below. There are varying degrees of mild to moderate multiple facet osteoarthritis. There are varying degrees of up to severe neural foraminal stenosis, as detailed below. C2-3: There is mild disc bulge and thickening of the posteriorlongitudinal ligament. There is mild central canal stenosis. There is no facet osteoarthritis. There is no uncovertebral joint osteoarthritis. There isno neural foraminal stenosis. C3-4: There is mild median disc bulge and thickening of the posterior longitudinal ligament. No neural foraminal stenosis. There is mildcentral canal stenosis. There is no facet osteoarthritis. There is nouncovertebral joint osteoarthritis. C4-5: There is moderate right paramedian disc bulge and posterior osteophyte complex. There is severe central canal stenosis. There is no facet osteoarthritis. There is no uncovertebral joint osteoarthritis.There is severe right neural foraminal stenosis. C5-6: There is moderate perimedian and median disc bulge and posterior osteophyte complex. There is severe central canal stenosis. There ismild facet osteoarthritis. There is moderate uncovertebral jointosteoarthritis. There is mild bilateral neural foraminal stenosis. C6-7: There is moderate right paramedian and median disc bulge and posterior osteophyte complex. There is severe central canal stenosis.There is mild facet osteoarthritis. There is moderate uncovertebral joint osteoarthritis. There is severe right neural foraminal stenosis. C7-T1: There is mild right paramedian and median disc bulge. There ismild central canal stenosis. There is no facet osteoarthritis. There is no uncovertebral joint osteoarthritis. There is mild neural foraminal stenosis. IMPRESSION: 1. Multilevel degenerative disc disease with right paramedian and median posterior disc protrusion predominantly most prominent at the levelsC4-7 causing up to severe multilevel central canal stenosis. This isaccompanied by mild facet and moderate uncovertebral joint osteoarthritis at C5-C7and varying degrees of up to severe neural foraminal stenosis, predominantlyon the right as detailed above. If clinically warranted, may obtain MRI ofthe cervical spine for further evaluation. 2. No acute fracture of the cervical spine. Findings were communicated to Jose Alejandro Beal MD by telephone by at 07/25/2025 2:00 PM. The report is dictated by Renato Andrea MD, (residential collections)07/25/2025 1:59 PM. > Dictated by Renato Andrea Dr 07/25/2025 1:17 PM > Dictated by [employer] Equipment Tender I, Suzanne Baird MD have personally reviewed and interpreted this examination/study. > Interpreting Provider: Suzanne Baird MD on 07/25/2025 3:48 PM us Anabell Huizar PA-C CT ORDERABLES Final Resul t * MAMMO BILAT SCREENING W MYRTLE (07/12/2024 [...] Report dictated by John Hayes M.D. (residential collections) 07/12/2024 11:07 AM Brianna Tang MD have personally reviewed and interpreted this examination/study. > Interpreting Provider: Brianna Stanley MD on 07/12/2024 12:54 PM Narrative 07/12/2024 12:54 PM CDT EXAMINATIONS: BILATERAL DIGITAL SCREENING MAMMOGRAM AND BILATERAL BREAST TOMOSYNTHESIS LOCATION: [facility] EXAM DATE: 07/12/2024 HISTORY: Baseline screening mammogram. [...] Guerrier PA-C MAMMO ORDERABLES Final Resu lt from Last 3 Months or Most Recently Relevant to Health Maintenance Advance Directives * Full Code (Latest Code Status on File) Date Activated Date Inactivated Comments 07/28/2025 2:08 PM 07/29/2025 4:02 PM Care Teams Recovery Engineer Relationship Specialty Start Date End Date Piper Mosley APRN-STATION CAPTAIN [facility] [place] [address] PCP - General Certified Clinical Nurse Specialist 07/28/25 Hermelindo Manning MD [address] [address] Internal Medicine 08/03/19
--- OUTSIDE RECORDS SUMMARY | 2025-09-12 10:31 | XMS_ITS | Encounter Summary ---
Author Organization [facility] Address [address] [facility] [place] [address] Care Team Providers Care Fishing Gear Mechanic Name Role Phone Hermelindo Manning MD Unavailable [phone] Naty Guerrier PA-C Primary Care Provider Naty Guerrier PA-C Primary Care Provider Piper Mosley APRN-[facility] Primary Care Provider [phone] Reason for Visit * Reason Comments Refill Request Encounter Details Date Type Department Care Team (Late st Contact Info) Description 03/27/2024 Refill [facility] - Family Medicine [address] [facility] [place] [address] Naty Guerrier PA-C [address] [place] [address] [address] [place] [address] Refill Request Social History Tobacco [...] documented in this encounter Plan of Treatment Upcoming Encounters Date Type Department Care Team (Latest Contact Info) Description 10/21/2025 3:15 PM CLOUD SERVICES ARCHITECT Office Visit [facility] - Orthopedics [address] [place] [address], [place] [phone] Ian Cramer MD [address] [place] [id number] 11/03/2025 10:50 AM CLOUD SERVICES ARCHITECT Hospital Encounter [facility] [address] [place] [phone] Ian Cramer MD [address] [place] [id number] Surgery General 11/03/2025 10:50 AM CLOUD SERVICES ARCHITECT - 11/03/2025 3:20 PM CLOUD SERVICES ARCHITECT Surgery [facility] [address] [place] [phone] Ian Cramer MD [address] [place] [id number] CERVICAL 3-7 INSTRUMENTED POSTERIOR SPINAL FUSION, CERVICAL 4-7 LAMINECTOMIES AND RIGHT SIDED FORAMINOTOMIES Scheduled Procedures Name Priority Associated Diagnoses Date/Ti me FUSION POSTERIOR CERVICAL (PCF) Cervical radiculopathy 11/03/2025 10:50 AM CLOUD SERVICES ARCHITECT documented as of this encounter Visit Diagnoses Diagnosis Generalized anxiety disorder Cervical radiculopathy Brachial neuritis or radiculitis nos documented in this encounter Care Teams Fishing Gear Mechanic Relationship Specialty Start Date End Date Naty Guerrier PA-C [address] [facility] [address] [place] [address] PCP - General Physician Refuse Collector Medical 12/27/23 02/11/25 Naty Guerrier PA-C [address] [facility] [address] [place] [address] PCP - General 03/12/25 07/27/25 Piper Mosley APRN-HOD CARRIER [address] [place] [address] PCP - General Certified Clinical Nurse Specialist 07/28/25 Hermelindo Manning MD [address] [facility] [address] [place] [address] Internal Medicine 08/03/19 documented as of this encounter
[2025-09-12 12:56] LABS: Hematocrit 40.9 % (37.0-47.0); Hemoglobin 13.5 g/dL (12.0-15.0); Immature Granulocyte Percent A 0.4 % (0-0.5); Lymphocytes Absolute Auto 1.81 K/mm3 (0.9-3.2); Mean Corpuscular HGB Conc 33.0 g/dl (32-36); Mean Corpuscular Hemoglobin 30.5 pg (26-34); Mean Corpuscular Volume 92.5 fl (80-100); Nucleated Red Blood Cells Absolute Auto 0.000 K/mm3 (0.0-0.012); Nucleated Red Blood Cells Perc 0.0 % (0.0-0.2); Platelet Count Result 217 k/mm3 (150-375); Red Blood Count 4.42 M/mm3 (4.2-5.4); White Blood Count 9.8 K/mm3 (4.5-10.0)
[2025-09-12 13:08] LABS: Alanine Aminotransferase 23 U/L (6-35); Albumin Level 4.2 g/dL (3.5-5.1); Alkaline Phosphatase 45 U/L (38-126); Anion Gap 6 mmol/L (4-12); Aspartate Amino Transferase 42 U/L (14-36); Bilirubin,Total 0.6 mg/dL (0.2-1.3); Blood Urea Nitrogen 20 mg/dL (7-17); Calcium 9.2 mg/dL (8.4-10.2); Carbon Dioxide 29 mmol/L (22-30); Chloride 103 mmol/L (98-107); Cholesterol 159 mg/dL (0-200); Estimated Glomerular Filt Rate > 60; Glucose 137 mg/dL (65-110); HDL Direct 48 mg/dL; Potassium 4.6 mmol/L (3.4-5.0); Sodium 138 mmol/L (137-145); Total Protein 7.3 g/dL (6.3-8.2); Triglycerides 75 mg/dL (<150)
[2025-09-12 13:39] LABS: MALB Creatinine Ratio 11.9 mg/g (0-30)
[2025-09-12 14:01] LABS: Vitamin B12 329.0 pg/mL (239-931)
[2025-09-12 14:05] LABS: Hemoglobin A1C 6.5 % (<5.7)
== END 2025-09-12 09:48 | disposition home or self-care (01) ==
LOC: ANHGOSHLAB 09:48
PROVIDERS: PCP Internal Medicine; Visit Provider Clinical Nurse Specialist
DX: Z13.29 Encounter for screening for other suspected endocrine disorder (principal); E11.65 Type 2 diabetes mellitus with hyperglycemia; I10 Essential (primary) hypertension
CPT/HCPCS: 36415; 80053; 80061; 82043; 82607; 83036; 85025